=== PATIENT | male | born 1950 | race Caucasian/White ===

== ENCOUNTER 2018-12-23 00:57 | Emergency (ER) | payer MEDICARE, BC ==
[2018-12-23] MEDS ORDERED: IPRATROPIUM 0.5 MG/2.5 ML NEBU INHALATION STA (01:15)
[2018-12-23] MEDS ORDERED: methylPREDNISolone SOD SUCCI 125 MG/2 ML VIAL IV STA (01:15)
[2018-12-23] MEDS ORDERED: ALBUTEROL NEBULIZED 2.5 MG/3 ML INHALATION STA (01:15)
--- NOTE | 2018-12-23 01:19 | ED ---
SOB HPI - General Chief Complaint: Shortness of Breath Stated Complaint: REGINA Time Seen by Provider: 12/23/18 01:07 Source: patient, family Mode of arrival: ambulatory Limitations: no limitations - History of Present Illness Initial Comments: 68-year-old male patient presents to the emergency department today for evaluation of shortness of breath. Patient states that prior to going to sleep tonight he felt fine. States he played golf all day. Patient states that he woke up about an hour after falling asleep with shortness of breath. Patient states that he does generally have a cough. Denies any sputum production. Denies any fever or chills. Patient denies any chest pain or tightness. States he was having some mild chest pain earlier but that resolved. Denies any nausea or vomiting. Denies any abdominal pain. Patient does smoke cigarettes. Patient denies any recent rash, diarrhea, constipation, back pain, numbness, tingling, dizziness, weakness, hematuria, dysuria, urinary urgency, urinary frequency, headache, visual changes, or any other complaints. - Related Data Previous Rx's Medication Instructions Recorded Albuterol Sulfate [Proair Hfa] 1 - 2 puff INHALATION Q6HR PRN #1 12/23/18 inhaler Azithromycin [Zithromax Z-pack] 0 mg PO DIRECTED #6 tab 12/23/18 predniSONE 50 mg PO DAILY #5 tablet 12/23/18 Allergies Allergy/AdvReac Type Severity Reaction Status Date / Time No Known Allergies Allergy Verified 12/23/18 01:02 Review of Systems ROS Statement: Those systems with pertinent positive or pertinent negative responses have been documented in the HPI. ROS Other: All systems not noted in ROS Statement are negative. Past Medical History Past Medical History: Hypertension History of Any Multi-Drug Resistant Organisms: None Reported Past Surgical History: No Surgical Hx Reported Past Psychological History: No Psychological Hx Reported Smoking Status: Current every day smoker Past Alcohol Use History: None Reported, Occasional Past Drug Use History: None Reported General Exam Limitations: no limitations General appearance: alert, in no apparent distress, other (This is a well- developed, well-nourished adult male patient in mild respiratory distress. Vital signs upon presentation are temperature 97.8F, pulse 92, respirations 18, blood pressure 142/70, pulse ox 94% on room air.) Eye exam: Present: normal appearance, PERRL, EOMI. Absent: scleral icterus, conjunctival injection, periorbital swelling ENT exam: Present: normal exam, normal oropharynx, mucous membranes moist Respiratory exam: Present: decreased breath sounds (Generalized). Absent: normal lung sounds bilaterally, respiratory distress, wheezes, rales, rhonchi, stridor Cardiovascular Exam: Present: regular rate, normal rhythm, normal heart sounds. Absent: systolic murmur, diastolic murmur, rubs, gallop, clicks GI/Abdominal exam: Present: soft, normal bowel sounds. Absent: distended, tenderness, guarding, rebound, rigid Neurological exam: Present: alert, oriented X3, CN II-XII intact Psychiatric exam: Present: normal affect, normal mood Skin exam: Present: warm, dry, intact, normal color. Absent: rash Course Vital Signs 12/23/18 12/23/18 12/23/18 01:00 01:18 01:34 Temperature 97.8 F Pulse Rate 92 80 Respiratory 18 84 H 20 Rate Blood Pressure 142/70 O2 Sat by Pulse 94 L Oximetry 12/23/18 12/23/18 12/23/18 01:45 01:55 02:05 Temperature Pulse Rate 81 84 87 Respiratory 20 18 18 Rate Blood Pressure O2 Sat by Pulse Oximetry Medical Decision Making - Medical Decision Making 68-year-old male patient presented to the emergency department today for e valuation of shortness of breath. Patient denied chest pain. Lungs were diminished. Labs reviewed and were unremarkable. Troponin and d-dimer negative. Chest x-ray showed no acute cardiopulmonary process. Patient is a long-time smoker. Patient's symptoms consistent with COPD. He was given br eathing treatment and IV steroids or any emergency department. Upon reevaluation he does report improvement of symptoms. He is saturating 94-95% on room air. He will be discharged home with prescription for a Pro Air inhaler, steroids, and a azithromycin. He is instructed to follow-up with his primary care physician for recheck in 1-2 days. Return parameters were discussed in detail. He verbalizes understanding and agrees with this plan. - Lab Data Result diagrams: 12/23/18 01:15 12/23/18 01:15 Lab Results 12/23/18 12/23/18 12/23/18 Range/Units 01:15 01:15 01:15 WBC 5.6 (3.8-10.6) k/uL RBC 4.75 (4.30-5.90) m/uL Hgb 14.1 (13.0-17.5) gm/dL Hct 41.8 (39.0-53.0) % MCV 88.0 (80.0-100.0) fL MCH 29.7 (25.0-35.0) pg MCHC 33.7 (31.0-37.0) g/dL RDW 13.3 (11.5-15.5) % Plt Count 163 (150-450) k/uL Neutrophils % 53 % Lymphocytes % 35 % Monocytes % 6 % Eosinophils % 4 % Basophils % 0 % Neutrophils # 3.0 (1.3-7.7) k/uL Lymphocytes # 2.0 (1.0-4.8) k/uL Monocytes # 0.3 (0-1.0) k/uL Eosinophils # 0.2 (0-0.7) k/uL Basophils # 0.0 (0-0.2) k/uL PT 10.0 (9.0-12.0) sec INR 0.9 (<1.2) APTT 26.3 (22.0-30.0) sec D-Dimer 0.59 (<0.60) mg/L FEU Sodium 140 (137-145) mmol/L Potassium 3.6 (3.5-5.1) mmol/L Chloride 104 (98-107) mmol/L Carbon Dioxide 24 (22-30) mmol/L Anion Gap 12 mmol/L BUN 11 (9-20) mg/dL Creatinine 0.84 (0.66-1.25) mg/dL Est GFR (CKD-EPI)AfAm >90 (>60 ml/min/1.73 sqM) Est GFR (CKD-EPI)NonAf 89 (>60 ml/min/1.73 sqM) Glucose 106 H (74-99) mg/dL Calcium 9.4 (8.4-10.2) mg/dL Total Bilirubin 0.3 (0.2-1.3) mg/dL AST 22 (17-59) U/L ALT 15 L (21-72) U/L Alkaline Phosphatase 30 L (38-126) U/L Troponin I (0.000-0.034) ng/mL Total Protein 6.7 (6.3-8.2) g/dL Albumin 4.1 (3.5-5.0) g/dL 12/23/18 Range/Units 01:15 WBC (3.8-10.6) k/uL RBC (4.30-5.90) m/uL Hgb (13.0-17.5) gm/dL Hct (39.0-53.0) % MCV (80.0-100.0) fL MCH (25.0-35.0) pg MCHC (31.0-37.0) g/dL RDW (11.5-15.5) % Plt Count (150-450) k/uL Neutrophils % % Lymphocytes % % Monocytes % % Eosinophils % % Basophils % % Neutrophils # (1.3-7.7) k/uL Lymphocytes # (1.0-4.8) k/uL Monocytes # (0-1.0) k/uL Eosinophils # (0-0.7) k/uL Basophils # (0-0.2) k/uL PT (9.0-12.0) sec INR (<1.2) APTT (22.0-30.0) sec D-Dimer (<0.60) mg/L FEU Sodium (137-145) mmol/L Potassium (3.5-5.1) mmol/L Chloride (98-107) mmol/L Carbon Dioxide (22-30) mmol/L Anion Gap mmol/L BUN (9-20) mg/dL Creatinine (0.66-1.25) mg/dL Est GFR (CKD-EPI)AfAm (>60 ml/min/1.73 sqM) Est GFR (CKD-EPI)NonAf (>60 ml/min/1.73 sqM) Glucose (74-99) mg/dL Calcium (8.4-10.2) mg/dL Total Bilirubin (0.2-1.3) mg/dL AST (17-59) U/L ALT (21-72) U/L Alkaline Phosphatase (38-126) U/L Troponin I <0.012 (0.000-0.034) ng/mL Total Protein (6.3-8.2) g/dL Albumin (3.5-5.0) g/dL - EKG Data -: EKG Interpreted by Me EKG Comments: EKG obtained at 0107 shows normal sinus rhythm with a ventricular rate of 83, OH interval 174, QRS duration 84, QT 346, QTC 406. No evidence of ST elevation or depression. - Radiology Data Radiology results: report reviewed, image reviewed Two-view x-ray of the chest is obtained. Report was reviewed in its entirety. Flattening of the diaphragms does suggest chronic obstructive pulmonary disease. Impression by Dr. Marks shows no acute cardio pulmonary disease. Disposition Clinical Impression: COPD (chronic obstructive pulmonary disease) Disposition: HOME SELF-CARE Condition: Good Instructions (If sedation given, give patient instructions): COPD (Chronic Obstructive Pulmonary Disease) (ED) Additional Instructions: Complete medications as directed. Follow up with your primary care physician for recheck as soon as possible. Return to the emergency department immediately for any new, worsening, or concerning symptoms. Prescriptions: predniSONE 50 mg PO DAILY #5 tablet Albuterol Sulfate [Proair Hfa] 1 - 2 puff INHALATION Q6HR PRN #1 inhaler PRN Reason: Shortness Of Breath Azithromycin [Zithromax Z-pack] 0 mg PO DIRECTED #6 tab Is patient prescribed a controlled substance at d/c from ED?: No Referrals: Olu Au MD [Primary Care Provider] - 1-2 days Time of Disposition: 03:03
[2018-12-23 01:29] LABS: Basophils % (A) 0 %; Eosinophils # (A) 0.2 k/uL (0-0.7); Eosinophils % (A) 4 %; HCT 41.8 % (39.0-53.0); HGB 14.1 gm/dL (13.0-17.5); Lymphocytes % (A) 35 %; MCH 29.7 pg (25.0-35.0); MCHC 33.7 g/dL (31.0-37.0); Mean Platelet Volume 6.6; Monocytes # (A) 0.3 k/uL (0-1.0); Monocytes % (A) 6 %; Neutrophils % (A) 53 %; Platelet Count 163 k/uL (150-450); RBC 4.75 m/uL (4.30-5.90); RDW 13.3 % (11.5-15.5); WBC 5.6 k/uL (3.8-10.6)
[2018-12-23 01:39] LABS: ALT 15 U/L (21-72); AST 22 U/L (17-59); African American GFR (CKD) >90 (>60 ml/min/1.73 sqM); Albumin 4.1 g/dL (3.5-5.0); Alkaline Phosphatase 30 U/L (38-126); Anion Gap 12 mmol/L; Blood Urea Nitrogen 11 mg/dL (9-20); Calcium 9.4 mg/dL (8.4-10.2); Carbon Dioxide 24 mmol/L (22-30); Chloride 104 mmol/L (98-107); Glucose 106 mg/dL (74-99); Potassium 3.6 mmol/L (3.5-5.1); Sodium 140 mmol/L (137-145); Total Bilirubin 0.3 mg/dL (0.2-1.3); Total Protein 6.7 g/dL (6.3-8.2)
[2018-12-23 01:52] LABS: D-Dimer 0.59 mg/L FEU (<0.60); INR 0.9 (<1.2); Partial Thromboplastin Time 26.3 sec (22.0-30.0)
[2018-12-23 02:05] VITALS: RESP 18
--- NOTE | 2018-12-23 02:05 | XR ---
INDICATION: Difficulty breathing COMPARISON: None FINDINGS: PA and lateral views of the chest are obtained. There is no airspace consolidation, pleural effusion, or pneumothorax. Flattening of the diaphragm suggests chronic obstructive pulmonary disease. The cardiomediastinal select and pulmonary vascularity are normal. Regional skeleton appears intact. IMPRESSION: No acute cardiopulmonary disease.
[2018-12-23 02:06] VITALS: PULSE 87
[2018-12-23] MEDS ORDERED: AZITHROMYCIN 500 MG TAB PO STA (03:01)
[2018-12-23 03:19] VITALS: BP 131/64; TEMP 98
== END 2018-12-23 03:28 | disposition home or self-care (01) ==
LOC: EC 00:57
DX: J44.9 Chronic obstructive pulmonary disease, unspecified (principal); F17.210 Nicotine dependence, cigarettes, uncomplicated
CPT/HCPCS: 36415; 94644; 93005; 85379; 80053; 84484; 85025; 85610; 85730; 71046; 99285; 96374; J2930

== ENCOUNTER → 2020-01-24 | Day surgery (SDC) | payer MEDICARE, BC ==
[2020-01-21 14:59] VITALS: BMI 25.2
[~2020-01-24] MED LIST: GLUCAGON 1 MG/ML VIAL ONE; LACTATED RINGERS 1,000 ML IV ONE; LACTATED RINGERS 1,000 ML IV SCH; LIDOCAINE 1% (10MG/ML) FOR IV START INTRADERMA PRN; PROPOFOL 10 MG/ML 20 ML VIAL IV ONE
[2020-01-24 08:27] VITALS: TEMP 97
--- NOTE | 2020-01-24 09:03 | P.GSHP ---
History of Present Illness H&P Date: 01/24/20 Chief Complaint: Screening colonoscopy Cyst 70-year-old male referred from Dr. Au. Patient presents today for screening colonoscopy. Past Medical History Past Medical History: GERD/Reflux, Hypertension Additional Past Medical History / Comment(s): Having pain in rectum, hx hemorrhoids. Gout. History of Any Multi-Drug Resistant Organisms: None Reported Past Surgical History: Heart Catheterization Additional Past Surgical History / Comment(s): Hemorrhoid laser. Colonoscopy. Past Anesthesia/Blood Transfusion Reactions: No Reported Reaction Smoking Status: Current every day smoker - Past Family History Mother Family Medical History: No Reported History Medications and Allergies Home Medications Medication Instructions Recorded Confirmed Type Albuterol Sulfate [Proair Hfa] 1 - 2 puff INHALATION Q6HR PRN #1 12/23/18 01/21/20 Rx inhaler Acetaminophen [Tylenol] 325 - 650 mg PO DIRECTED PRN 01/21/20 01/21/20 History Enalapril [Vasotec] 20 mg PO BID 01/21/20 01/21/20 History Ibuprofen [Motrin Ib] 400 mg PO Q8H PRN 01/21/20 01/21/20 History allopurinoL [Zyloprim] 100 mg PO DAILY 01/21/20 01/21/20 History Allergies Allergy/AdvReac Type Severity Reaction Status Date / Time cephalexin [From Keflex] AdvReac dizzyness Verified 01/21/20 14:38 Surgical - Exam Vital Signs Temp Pulse Resp BP Pulse Ox 97.0 F L 75 18 170/73 97 01/24/20 08:25 01/24/20 08:25 01/24/20 08:25 01/24/20 08:25 01/24/20 08:25 - General well developed, well nourished, no distress - Eyes PERRL - ENT normal pinna - Neck no masses - Respiratory normal expansion - Cardiovascular Rhythm: regular - Abdomen Abdomen: soft, non tender Assessment and Plan Assessment: We'll perform screening colonoscopy.
--- NOTE | 2020-01-24 09:21 | P.OP ---
Date of Procedure: 01/24/20 Preoperative Diagnosis: Screening colonoscopy Postoperative Diagnosis: Anal stricture Severe Diverticulosis I Procedure(s) Performed: Colonoscopy Anesthesia: MAC Surgeon: Chilo Escobar Pathology: other (Anus) Condition: stable Disposition: PACU Description of Procedure: Patient's placed on the endoscopy table in the lateral position. He received IV sedation. Digital rectal exam was performed. There was scarring of the patient's anus. There appeared to be evidence of inflammatory changes of the perianal skin. A biopsies performed. The flexible colonoscope was then placed patient anus and passed with colon. The patient severe diverticulosis. The scope could not be passed beyond the sigmoid colon. Scope was withdrawn in order to prevent a perforation of the colon. There is significant diverticular changes of the sigmoid colon. Scope was then brought back the rectum and this appeared normal. Scope was withdrawn for patient. Patient was scheduled for computed tomography scan of the abdomen pelvis
[2020-01-24 10:26] VITALS: BP 124/76; PULSE 74; RESP 16
[2020-01-24 10:29] LABS: African American GFR (CKD) >90 (>60 ml/min/1.73 sqM); Blood Urea Nitrogen 10 mg/dL (9-20); Non-African American GFR(CKD) >90 (>60 ml/min/1.73 sqM)
--- NOTE | 2020-01-24 15:28 | CT ---
EXAMINATION TYPE: CT abdomen pelvis w con DATE OF EXAM: 01/24/2020 COMPARISON: None HISTORY: Diverticulitis. CT DLP: 542.3 mGycm Automated exposure control for dose reduction was used. TECHNIQUE: Helical acquisition of images was performed from the lung bases through the pelvis. CONTRAST: Performed with Oral Contrast and with IV Contrast, patient injected with 100 mL of Isovue M300. FINDINGS: LUNG BASES: No pericardial or pleural effusion. Calcified coronary artery disease. LIVER: Wedge-shaped hypodensity near the falciform ligament likely represents fat. BILIARY SYSTEM: Normal. PANCREAS: Normal. SPLEEN: Normal. ADRENALS: Normal. KIDNEYS: Normal. Renal artery vascular calcifications. BOWEL: There is circumferential thickening of the visualized distal esophagus. No evidence of bowel obstruction. There is diffuse wall thickening of the distal sigmoid, in the region of sigmoid diverti culosis. No acute diverticulitis. The appendix is within a right inguinal hernia and otherwise unrema rkable. PERITONEUM: No free air is visualized. No free fluid. Fat-containing small left inguinal hernias. Sm all right inguinal Amyand hernia contains the nonobstructed appendix. ADENOPATHY: No lymphadenopathy. PELVIS: Normal. VASCULATURE: Infrarenal abdominal aortic ectasia measuring up to 2.5 cm. Calcified and noncalcified marked atherosclerotic disease. MUSCULOSKELETAL: Degenerative changes of the spine. IMPRESSION: 1. Circumferential thickening of the distal sigmoid colon. Findings may represent colitis. There is d iverticulosis with no acute diverticulitis of the sigmoid colon. 2. Circumferential thickening of the visualized distal esophagus. Findings may represent neoplastic v ersus inflammatory etiology. Correlation with direct visualization is recommended. 3. Right Amyand inguinal hernia containing nonobstructed vermiform appendix.
== END | disposition home or self-care (01) ==
LOC: ORWHC2ENDO 08:03
PROVIDERS: ATTEND Surgery
DX: Z12.11 Encounter for screening for malignant neoplasm of colon (principal); K57.30 Diverticulosis of large intestine without perforation or abscess without bleeding; K62.4 Stenosis of anus and rectum; I10 Essential (primary) hypertension; J45.909 Unspecified asthma, uncomplicated; Z88.1 Allergy status to other antibiotic agents; Z79.1 Long term (current) use of non-steroidal anti-inflammatories (NSAID); Z79.899 Other long term (current) drug therapy; M10.9 Gout, unspecified; F17.200 Nicotine dependence, unspecified, uncomplicated; K21.9 Gastro-esophageal reflux disease without esophagitis; Z87.19 Personal history of other diseases of the digestive system; Z98.890 Other specified postprocedural states
CPT/HCPCS: 88305; 82565; 84520; 74177; 45331; J1610; J2704; Q9967 ×2

== ENCOUNTER → 2020-02-03 | Outpatient (CLI) | payer MEDICARE, BC ==
[2020-02-03 13:58] LABS: HCT 44.8 % (39.0-53.0); HGB 14.9 gm/dL (13.0-17.5); MCH 31.4 pg (25.0-35.0); MCHC 33.2 g/dL (31.0-37.0); MCV 94.7 fL (80.0-100.0); Mean Platelet Volume 7.3; Platelet Count 218 k/uL (150-450); RBC 4.73 m/uL (4.30-5.90); RDW 13.2 % (11.5-15.5)
[2020-02-03 14:08] LABS: Potassium 4.3 mmol/L (3.5-5.1)
== END | disposition home or self-care (01) ==
LOC: LABPAT 11:51
PROVIDERS: ATTEND Surgery
DX: Z01.818 Encounter for other preprocedural examination (principal); K57.32 Diverticulitis of large intestine without perforation or abscess without bleeding
CPT/HCPCS: 36415; 80051; 85027; 86850; 86900; 86901; 93005

== ENCOUNTER 2020-02-12 09:09 | Inpatient (IN) | payer MEDICARE, BC ==
[2020-02-10 12:10] VITALS: BMI 23.4
[~2020-02-12 09:09] MED LIST changes: +ACETAMINOPHEN TAB 500 MG TAB PO ONE; +DEXAMETHASONE SOD PHOSPHATE 10 MG/ML 1 ML VIAL IV ONE; -GLUCAGON 1 MG/ML VIAL ONE; +HEPARIN SODIUM,PORCINE 5,000 UNIT/ML 1 ML VIAL SQ ONE; -LACTATED RINGERS 1,000 ML IV ONE; -LACTATED RINGERS 1,000 ML IV SCH; -LIDOCAINE 1% (10MG/ML) FOR IV START INTRADERMA PRN; +MIDAZOLAM 2 MG/2 ML VIAL IV PRN; +ONDANSETRON 4 MG/2 ML VIAL IVP ONE; -PROPOFOL 10 MG/ML 20 ML VIAL IV ONE; +fentaNYL (PF) 50 MCG/ML 2 ML AMP IV PRN; +fentaNYL (PF) 50 MCG/ML 2 ML AMP IVP PRN; +metroNIDAZOLE-NS PMX 500 MG in SALINE 1 100ML.BAG IVPB ONE
[2020-02-12] MEDS: LACTATED RINGERS 1,000 ML IV SCH ×2 (09:49→18:00)
[2020-02-12] MEDS ORDERED: MIDAZOLAM 2 MG/2 ML VIAL IVP ONE (10:39)
[2020-02-12] MEDS ORDERED: ALVIMOPAN 12 MG CAPSULE PO ONE (10:59)
--- NOTE | 2020-02-12 11:00 | P.GSHP ---
History of Present Illness H&P Date: 02/12/20 Chief Complaint: Diverticulitis This a 70-year-old male who presents today for low anterior section. Patient's had chronic problems with diverticulitis. His recent CAT scan shows thickening of the sigmoid colon and evidence of diverticulosis. Patient is aware the risk of possible colostomy wound infection. Past Medical History Past Medical History: COPD, GERD/Reflux, Hypertension Additional Past Medical History / Comment(s): Having pain in rectum, hx hemorrhoids. Gout. Recent colonoscopy, found diverticulitis, anal stricture. History of Any Multi-Drug Resistant Organisms: None Reported Past Surgical History: Heart Catheterization Additional Past Surgical History / Comment(s): Hemorrhoid laser. Colonoscopies, last 01/21/20. Past Anesthesia/Blood Transfusion Reactions: No Reported Reaction Smoking Status: Current every day smoker - Past Family History Mother Family Medical History: No Reported History Medications and Allergies Home Medications Medication Instructions Recorded Confirmed Type Albuterol Sulfate [Proair Hfa] 1 - 2 puff INHALATION Q6HR PRN #1 12/23/18 02/10/20 Rx inhaler Acetaminophen [Tylenol] 325 - 650 mg PO DIRECTED PRN 01/21/20 02/10/20 History Enalapril [Vasotec] 20 mg PO BID 01/21/20 02/10/20 History Ibuprofen [Motrin Ib] 400 mg PO Q8H PRN 01/21/20 02/10/20 History allopurinoL [Zyloprim] 100 mg PO DAILY 01/21/20 02/10/20 History Acetaminophen/Diphenhydramine 1 tab PO HS PRN 02/10/20 02/10/20 History [Tylenol PM 500-25mg] Allergies Allergy/AdvReac Type Severity Reaction Status Date / Time cephalexin [From Keflex] AdvReac dizzyness Verified 02/12/20 09:53 Surgical - Exam Vital Signs Temp Pulse Resp BP Pulse Ox 96.9 F L 76 16 143/68 95 02/12/20 09:44 02/12/20 09:44 02/12/20 09:44 02/12/20 09:44 02/12/20 09:44 - General well developed, well nourished, no distress - Eyes PERRL - ENT normal pinna - Neck no masses - Respiratory normal expansion - Cardiovascular Rhythm: regular - Abdomen Mild left lower quadrant tenderness Abdomen: soft Assessment and Plan Assessment: History of chronic diverticulitis. Patient will undergo low anterior resection
[2020-02-12] MEDS ORDERED: PROPOFOL 10 MG/ML 20 ML VIAL IV ONE (11:18)
[2020-02-12] MEDS ORDERED: fentaNYL (PF) 50 MCG/ML 2 ML AMP ONE (11:18)
[2020-02-12] MEDS ORDERED: SUCCINYLCHOLINE CHLORIDE 100 MG/5 ML SYR IV ONE (11:18)
[2020-02-12] MEDS ORDERED: NEOSTIGMINE 1 MG/ML 10 ML VIAL ONE (11:18)
[2020-02-12] MEDS ORDERED: HYDROmorphone (PF) 1 MG/ML ONE (11:18)
[2020-02-12] MEDS ORDERED: ROCURONIUM 10 MG/ML (5 ML VIAL) IV ONE (11:18)
[2020-02-12] MEDS ORDERED: MIDAZOLAM 2 MG/2 ML VIAL ONE (11:18)
[2020-02-12] MEDS ORDERED: LIDOCAINE 1% INJ 10MG/ML (20 ML MDV) ONE (11:18)
[2020-02-12] MEDS ORDERED: GLYCOPYRROLATE 0.2 MG/ML 2 ML VIAL ONE (11:18)
[2020-02-12] MEDS ORDERED: NALOXONE 0.4 MG/ML 1 ML VIAL IV PRN (11:59)
[2020-02-12] MEDS ORDERED: LACTATED RINGERS 1,000 ML IV ONE ×4 (12:04→14:05)
--- NOTE | 2020-02-12 12:44 | P.OP ---
Date of Procedure: 02/12/20 Preoperative Diagnosis: Diverticulitis Postoperative Diagnosis: Diverticulitis Procedure(s) Performed: Low anterior section Incidental appendectomy Anesthesia: TRISHA Surgeon: Chilo Escobar Estimated Blood Loss (ml): 50 Pathology: other (Sigmoid colon, appendix) Condition: stable Disposition: PACU Operative Findings: The patient's placed on the operating table in the supine position. He received general anesthesia. His then placed in dorsal lithotomy position. His abdomen was prepped and draped in the usual sterile fashion. A Fountain catheter complaints. The abdomen was entered through a low midline incision. The patient a previous ventral hernia repair. There were adhesions to mesh. These were lysed using left cautery. Once the omentum was freed the Bookwalter retractors placed a wound. The sigmoid colon appeared obviously inflamed. The adhesions to the sigmoid colon and left colon were then lysed. In the white line of Toldt was divided using left cautery. At this point an enterotomy is made in the proximal sigmoid colon and then the EEA anvil for the 25 mm stapler is placed in the colon. The enterotomy was closed. This was closed using 3-0 GI silk. And then using the OLI stapler the colon was transected. The anvil was then driven through the staple line proximally. Using Enseal device the mesentery the bowel was divided. The mesorectum was divided. And then the rectum was then transected with the contour stapler. The office manager executive assistant then placed the EEA stapler patient's anus and then the stapler was appropriately position and the spike was driven through the anterior rectal wall. The handle was connected to the stapler. The stapler is then closed and fired. The stapler was then withdrawn. 2 intact tissue doughnut rings were removed from the stapler. Using a hydro-banking center manager. The proximal colon was then occluded just proximal to the staple anastomosis. And then using a rigid sigmoidoscope the rectum was insufflated with air. There is no evidence of any extravasation of air when performed a leak test under water. This point the abdomen was irrigated. No bleeding was seen. The fascia was then closed with looped #1 PDS suture. Skin was closed felecia. Patient tolerated the procedure well was sent to recovery room stable condition.
[2020-02-12] MEDS ORDERED: ONDANSETRON 4 MG/2 ML VIAL IVP PRN (12:45)
[2020-02-12] MEDS ORDERED: HYDROmorphone 1 MG/ML 1 ML SYRINGE IVP PRN (12:45)
[2020-02-12] MEDS ORDERED: BENZOCAINE/MENTHOL LOZENG 1 EACH LOZENGE MUCOUS MEM PRN (12:45)
[2020-02-12] MEDS ORDERED: METOCLOPRAMIDE 5 MG/ML 2 ML VIAL IVP PRN (12:45)
[2020-02-12] MEDS: HYDROmorphone 0.5 MG/0.5 ML SYRINGE IVP PRN ×4 (13:05→13:47)
[2020-02-12] MEDS: ROPIVACAINE 250 MG, HYDROMORPHONE (PF) 5 MG in SODIUM CHLORIDE 0.9% 200 ML EPIDURAL PRN ×3 (13:38→14:14)
[2020-02-12] MEDS ORDERED: fentaNYL (PF) 50 MCG/ML 2 ML AMP IVP ONE (13:54)
--- NOTE | 2020-02-12 14:12 | P.ANPRN ---
Procedure Note - Anesthesia - Epidural/Spinal Epidural Continuous Time Out Performed: Yes Date of Procedure: 02/12/20 Procedure Start Time: 10:38 Procedure Stop Time: 10:47 Location of Patient: PreOp Indication: Acute Post-Operative Pain, Requested by Surgeon Sedation Type: Sedate with meaningful contact maintained Preparation: Sterile Dressing Position: Supine Catheter: Indwelling Needle Guage: 18 Injectate: Test Dose Lidocaine1.5% w/1:200,000 epi Blood Aspirated: No Pain Paresthesia on Injection Noted: No Events: Uneventful and Well Tolerated
[2020-02-12] MEDS: D5-0.45% NACL WITH KCL 20MEQ/L 1,000 ML IV SCH ×2 (17:52→21:01)
[2020-02-12] MEDS: HEPARIN SODIUM,PORCINE 5,000 UNIT/ML 1 ML VIAL SQ SCH (18:00)
[2020-02-12] MEDS: FAMOTIDINE 20 MG/2 ML VIAL IV SCH (20:59)
[2020-02-12] MEDS: ALVIMOPAN 12 MG CAPSULE PO SCH (20:59)
[2020-02-13] MEDS: HEPARIN SODIUM,PORCINE 5,000 UNIT/ML 1 ML VIAL SQ SCH ×3 (00:08→16:17)
[2020-02-13] MEDS: D5-0.45% NACL WITH KCL 20MEQ/L 1,000 ML IV SCH ×3 (05:40→20:50)
[2020-02-13 06:39] LABS: Basophils % (A) 0 %; Eosinophils % (A) 0 %; HCT 42.4 % (39.0-53.0); HGB 13.8 gm/dL (13.0-17.5); Lymphocytes # (A) 1.1 k/uL (1.0-4.8); Lymphocytes % (A) 8 %; MCHC 32.6 g/dL (31.0-37.0); MCV 94.9 fL (80.0-100.0); Monocytes # (A) 0.8 k/uL (0-1.0); Monocytes % (A) 6 %; Neutrophils # (A) 11.1 k/uL (1.3-7.7); Neutrophils % (A) 85 %; Platelet Count 209 k/uL (150-450); RBC 4.47 m/uL (4.30-5.90); RDW 13.2 % (11.5-15.5); WBC 13.1 k/uL (3.8-10.6)
[2020-02-13] MEDS: ALBUTEROL NEBULIZED 2.5 MG/3 ML INHALATION PRN ×2 (07:15→22:39)
--- NOTE | 2020-02-13 07:45 | P.PN ---
Progress Note - Text Progress Note Date: 02/13/20 Patient is POD#1 s/p LAR. Pain 3/10. Denies headache or weakness. Epidural @ 7 ml/hr. Epidural site clean and dry. Continue current regimen.
--- NOTE | 2020-02-13 07:52 | P.CONS ---
History of Present Illness - Reason for Consult Consult date: 02/13/20 Medical management - Chief Complaint Chronic diverticular disease - History of Present Illness This is a consultation on a 70-year-old white male with history of hypertension and COPD who has had chronic diverticular disease and is now seen postop day #1 for lunch or resection. The patient is having postoperative pain. No other complaints. The patient states no significant nausea or vomiting. We will restart home medications today. Pain control per surgery. Review of Systems Constitutional: Denies chills, Denies fever Eyes: denies blurred vision, denies pain Ears, nose, mouth and throat: Denies headache, Denies sore throat Cardiovascular: Denies chest pain, Denies shortness of breath Respiratory: Denies cough Gastrointestinal: Reports abdominal pain, Denies diarrhea, Denies nausea, Denies vomiting Musculoskeletal: Denies myalgias Past Medical History Past Medical History: COPD, GERD/Reflux, Hypertension Additional Past Medical History / Comment(s): Having pain in rectum, hx hemorrhoids. Gout. Recent colonoscopy, found diverticulitis, anal stricture. History of Any Multi-Drug Resistant Organisms: None Reported Past Surgical History: Heart Catheterization Additional Past Surgical History / Comment(s): Hemorrhoid laser. Colonoscopies, last 01/21/20. Past Anesthesia/Blood Transfusion Reactions: No Reported Reaction Past Psychological History: No Psychological Hx Reported Smoking Status: Current every day smoker Past Alcohol Use History: Occasional Additional Past Alcohol Use History / Comment(s): Smoking since age 15, 1 ppd or so. Drinks 3-4 beers per day est. Past Drug Use History: None Reported - Past Family History Mother Family Medical History: No Reported History Medications and Allergies Home Medications Medication Instructions Recorded Confirmed Type Albuterol Sulfate [Proair Hfa] 1 - 2 puff INHALATION Q6HR PRN #1 12/23/18 02/10/20 Rx inhaler Acetaminophen [Tylenol] 325 - 650 mg PO DIRECTED PRN 01/21/20 02/10/20 History Enalapril [Vasotec] 20 mg PO BID 01/21/20 02/10/20 History Ibuprofen [Motrin Ib] 400 mg PO Q8H PRN 01/21/20 02/10/20 History allopurinoL [Zyloprim] 100 mg PO DAILY 09/01/20 09/21/20 History Acetaminophen/Diphenhydramine 1 tab PO HS PRN 02/10/20 02/10/20 History [Tylenol PM 500-25mg] Allergies Allergy/AdvReac Type Severity Reaction Status Date / Time cephalexin [From Keflex] AdvReac dizzyness Verified 02/12/20 09:53 Physical Exam Vitals: Vital Signs Temp Pulse Pulse Resp BP Pulse Ox 02/13/20 07:29 84 02/13/20 07:26 97.5 F L 78 12 132/72 99 02/13/20 07:15 80 02/13/20 00:00 18 02/12/20 23:56 98.8 F 85 16 96/61 95 02/12/20 19:50 18 02/12/20 19:16 98.9 F 77 18 121/75 98 02/12/20 17:30 65 104/71 02/12/20 17:00 66 115/63 02/12/20 16:30 69 104/65 02/12/20 16:26 98 02/12/20 16:00 55 L 124/67 02/12/20 15:29 98.1 F 62 18 101/56 91 L 02/12/20 15:00 73 16 92/56 99 02/12/20 14:30 62 16 88/52 97 02/12/20 14:12 59 L 16 104/50 98 02/12/20 13:57 58 L 16 105/51 98 02/12/20 13:42 58 L 16 129/82 100 02/12/20 13:28 56 L 16 110/50 100 02/12/20 13:13 57 L 16 112/52 100 02/12/20 12:58 61 16 143/57 100 02/12/20 12:43 97 F L 68 16 176/81 99 02/12/20 10:57 87 16 109/62 96 02/12/20 09:44 96.9 F L 76 16 143/68 95 Intake and Output 02/12/20 02/13/20 02/13/20 22:59 06:59 14:59 Intake Total 550 1000 Output Total 600 450 Balance -50 550 Intake: IV 300 Intake, IV Titration 250 1000 Amount D5-0.45% NaCl with KCl 250 1000 20Meq/l 1,000 ml @ 125 mls/hr IV .Q8H [facility] Rx#: [id number] Output: Urine 600 450 Uretheral (Fountain) 100 Other: Voiding Method Indwelling Catheter Indwelling Catheter # Voids 1 Weight 70 kg - Constitutional General appearance: no acute distress - EENT Eyes: EOMI - Neck Neck: no lymphadenopathy - Respiratory Respiratory: bilateral: CTA - Cardiovascular Rhythm: regular Heart sounds: normal: S1, S2 Abnormal Heart Sounds: no S3 Gallop - Gastrointestinal General gastrointestinal: absent bowel sounds, soft - Integumentary Integumentary: no cellulitis Results CBC & Chem 7: 02/13/20 06:18 Labs: Abnormal Lab Results - Last 24 Hours (Table) 02/13/20 Range/Units 06:18 WBC 13.1 H (3.8-10.6) k/uL Neutrophils # 11.1 H (1.3-7.7) k/uL Assessment and Plan (1) Diverticulitis large intestine w/o perforation or abscess w/o bleeding Current Visit: Yes Status: Acute Code(s): K57.32 - DVTRCLI OF LG INT W/O PERFORATION OR ABSCESS W/O BLEEDING SNOMED Code(s): 9036514 (2) HTN (hypertension) Current Visit: Yes Status: Acute Code(s): I10 - ESSENTIAL (PRIMARY) HYPERTENSION SNOMED Code(s): 65546425 (3) COPD (chronic obstructive pulmonary disease) Current Visit: Yes Status: Acute Code(s): J44.9 - CHRONIC OBSTRUCTIVE PULM ONARY DISEASE, UNSPECIFIED SNOMED Code(s): 87112263 Plan: Continue standard postop treatment with pulmonary toilet. DVT prophylaxis and GI prophylaxis as necessary. Check CBC and CMP in a.m. Reconcile home medications. Appreciate the consultation.
[2020-02-13 09:05] LABS: African American GFR (CKD) 117.2 (60.0-200.0); Anion Gap 5.7 mmol/L (4.00-12.00); Calcium 8.9 mg/dL (8.7-10.3); Carbon Dioxide 28.3 mmol/L (21.6-31.8); Non-African American GFR(CKD) 101.2 (60.0-200.0); Potassium 4.6 mmol/L (3.5-5.5)
[2020-02-13] MEDS: ALVIMOPAN 12 MG CAPSULE PO SCH ×2 (09:14→20:50)
[2020-02-13] MEDS: allopurinoL 100 MG TAB PO SCH (09:14)
[2020-02-13] MEDS: lisinopriL 20 MG TAB PO SCH ×2 (09:14→20:50)
[2020-02-13] MEDS: FAMOTIDINE 20 MG/2 ML VIAL IV SCH ×2 (09:25→20:50)
--- NOTE | 2020-02-13 14:12 | P.PN ---
Subjective Progress Note Date: 02/13/20 CHIEF COMPLAINT: Diverticulitis HISTORY OF PRESENT ILLNESS: Patient with diverticulitis status post lower anterior resection and incidental appendectomy. Patient is reporting some pain. Does have epidural. Denies passing any gas denies any nausea or vomiting. Patient's dressing was saturated with blood and changed. He is asking for something to drink. White count 13.1. He is afebrile. PHYSICAL EXAM: VITAL SIGNS: Reviewed. GENERAL: Well-developed in no acute distress. HEENT: No sclera icterus. Extraocular movements grossly intact. Moist buccal mucosa. Head is atraumatic, normocephalic. ABDOMEN: Soft. Mildly distended. Incision site clean dry and intact. Dressing was saturated with blood NEUROLOGIC: Alert and oriented. Cranial nerves II through XII grossly intact. ASSESSMENT: 1. Diverticulitis status post lower anterior resection and incidental appendectomy PLAN: -Start clear liquid diet -Continue epidural -Encouraged patient to increase activity -Encouraged patient to use incentive spirometer Physician Egg Candler note has been reviewed by physician. Signing provider agrees with the documented findings, assessment, and plan of care. Objective - Vital Signs Vital signs: Vital Signs Temp 97.5 F L 02/13/20 07:26 Pulse 78 02/13/20 08:00 Resp 12 02/13/20 08:00 BP 132/72 02/13/20 07:26 Pulse Ox 99 02/13/20 07:26 Intake & Output 02/12/20 02/13/20 02/13/20 18:59 06:59 18:59 Intake Total 2475 1250 Output Total 325 875 Balance 2150 375 Weight 70 kg Intake: IV 2475 Intake, IV Titration 1250 Amount D5-0.45% NaCl with KCl 1250 20Meq/l 1,000 ml @ 125 mls/hr IV .Q8H [facility] Rx#: [id number] Output: Urine 275 875 Uretheral (Fountain) 100 Estimated Blood Loss 50 Other: Voiding Method Indwelling Catheter Indwelling Catheter # Voids 1 1 - Labs CBC & Chem 7: 02/13/20 06:18 02/13/20 06:18 Labs: Abnormal Lab Results - Last 24 Hours (Table) 02/13/20 Range/Units 06:18 WBC 13.1 H (3.8-10.6) k/uL Neutrophils # 11.1 H (1.3-7.7) k/uL
[2020-02-13] MEDS: ROPIVACAINE 250 MG, HYDROMORPHONE (PF) 5 MG in SODIUM CHLORIDE 0.9% 200 ML EPIDURAL PRN (16:12)
[2020-02-13] MEDS: LACTATED RINGERS 1,000 ML IV SCH (20:49)
[2020-02-14] MEDS: HEPARIN SODIUM,PORCINE 5,000 UNIT/ML 1 ML VIAL SQ SCH ×3 (00:06→16:18)
[2020-02-14] MEDS: D5-0.45% NACL WITH KCL 20MEQ/L 1,000 ML IV SCH ×3 (06:06→20:33)
[2020-02-14 07:30] LABS: HCT 42.8 % (39.0-53.0); HGB 13.6 gm/dL (13.0-17.5); MCH 30.2 pg (25.0-35.0); MCHC 31.9 g/dL (31.0-37.0); MCV 94.5 fL (80.0-100.0); Mean Platelet Volume 7.2; Platelet Count 195 k/uL (150-450); RBC 4.52 m/uL (4.30-5.90); RDW 12.6 % (11.5-15.5); WBC 10.6 k/uL (3.8-10.6)
[2020-02-14] MEDS: allopurinoL 100 MG TAB PO SCH (08:07)
[2020-02-14] MEDS: FAMOTIDINE 20 MG/2 ML VIAL IV SCH ×2 (08:07→20:33)
[2020-02-14] MEDS: ALVIMOPAN 12 MG CAPSULE PO SCH ×2 (08:07→20:32)
[2020-02-14] MEDS: lisinopriL 20 MG TAB PO SCH ×2 (08:07→20:32)
--- NOTE | 2020-02-14 09:04 | P.PN ---
Progress Note - Text Progress Note Date: 02/14/20 Patient without complaints. Tolerating clears. Denies headache or weakness. Pain /10. Epidural at 7 ml/hr. Epidural site clean and dry. POD#2 s/p LAR. Increase epidural rate to 10 ml/hr. Continue epidural until tomorrow. Breakthrough pain medication.
--- NOTE | 2020-02-14 10:32 | P.PN ---
Subjective Progress Note Date: 02/14/20 Principal diagnosis: POD #2 for Low Anterior resection The patient is POD #2 for Low anterior resection for diverticular disease. Poor sleep is noted. Some anxiety is stated. Objective - Vital Signs Vital signs: Vital Signs Temp 98.5 F 02/14/20 07:00 Pulse 64 02/14/20 07:00 Resp 16 02/14/20 07:00 BP 116/60 02/14/20 07:00 Pulse Ox 99 02/14/20 08:24 Intake & Output 02/13/20 02/14/20 02/14/20 18:59 06:59 18:59 Intake Total 150 2550 Output Total 500 2150 Balance -350 400 Intake: Intake, IV Titration 150 2050 Amount D5-0.45% NaCl with KCl 1990 20Meq/l 1,000 ml @ 125 mls/hr IV .Q8H [facility] Rx#: [id number] Lactated Ringers 1,000 ml 60 @ 20 mls/hr IV .Q24H [facility] Rx#:[id number] Ropivacaine 250 mg 150 Hydromorphone (Pf) 5 mg In Sodium Chloride 0.9% 200 ml @ Per Protocol EPIDURAL .Q0M PRN Rx#: [id number] Oral 500 Output: Urine 500 2150 Other: Voiding Method Indwelling Catheter Indwelling Catheter Indwelling Catheter # Voids 1 - Constitutional General appearance: Present: average body habitus - EENT Eyes: Absent: abnormal pupil - Neck Neck: Absent: lymphadenopathy - Respiratory Respiratory: bilateral: CTA - Cardiovascular Rhythm: regular Heart sounds: normal: S1, S2 Abnormal Heart Sounds: Absent: S3 Gallop - Gastrointestinal General gastrointestinal: Present: soft, tenderness - Integumentary Integumentary: Absent: cellulitis - Labs CBC & Chem 7: 02/14/20 07:00 02/13/20 06:18 Assessment and Plan (1) Diverticulitis large intestine w/o perforation or abscess w/o bleeding Current Visit: Yes Status: Acute Code(s): K57.32 - DVTRCLI OF LG INT W/O PERFORATION OR ABSCESS W/O BLEEDING SNOMED Code(s): 1489471 (2) HTN (hypertension) Current Visit: Yes Status: Acute Code(s): I10 - ESSENTIAL (PRIMARY) HYPERTENSION SNOMED Code(s): 58919445 (3) COPD (chronic obstructive pulmonary disease) Current Visit: Yes Status: Acute Code(s): J44.9 - CHRONIC OBSTRUCTIVE PULMONARY DISEASE, UNSPECIFIED SNOMED Code(s): 44639780 Plan: Continue standard postop treatment with pulmonary toilet. DVT prophylaxis and GI prophylaxis as necessary. Check CBC and CMP in a.m. Will assist will insomnia and anxiety
[2020-02-14 11:32] LABS: African American GFR (CKD) 117.2 (60.0-200.0); Albumin 4.2 g/dL (3.80-4.90); Albumin/Globulin Ratio 2.1 (1.60-3.17); Anion Gap 8.3 mmol/L (4.00-12.00); BUN/Creat Ratio 13.33 Ratio (12.00-20.00); Calcium 9.5 mg/dL (8.7-10.3); Carbon Dioxide 28.7 mmol/L (21.6-31.8); Non-African American GFR(CKD) 101.2 (60.0-200.0); Potassium 4.1 mmol/L (3.5-5.5); Total Bilirubin 0.7 mg/dL (0.3-1.2); Total Protein 6.2 g/dL (6.2-8.2)
[2020-02-14 13:00] LABS: Anisocytosis (M) Present; Lymphocytes # (M) 1.48 k/uL (1.0-4.8); Monocytes # (M) 0.53 k/uL (0-1.0); Neutrophils # (M) 8.59 k/uL (1.3-7.7); Neutrophils % (M) 81 %; Nucleated Red Blood Cells 0 /100 WBC (0-0); Poikilocytosis (M) Present; Total Cells Counted 100
--- NOTE | 2020-02-14 13:24 | P.PN ---
Subjective Progress Note Date: 02/14/20 CHIEF COMPLAINT: Diverticulitis HISTORY OF PRESENT ILLNESS: Patient with diverticulitis status post lower anterior resection and incidental appendectomy. Patient is reporting some pain. He does have epidural. Denies having a bowel movement. Denies any nausea or vomiting. Patient had difficulty with sleeping. Medicine his added Xanax as needed. Incision dressing was changed yesterday. Afebrile. WBC 10.6 PHYSICAL EXAM: VITAL SIGNS: Reviewed. GENERAL: Well-developed in no acute distress. HEENT: No sclera icterus. Extraocular movements grossly intact. Moist buccal mucosa. Head is atraumatic, normocephalic. ABDOMEN: Soft. Mildly distended. Minimal blood noted at distal aspect of dres sing NEUROLOGIC: Alert and oriented. Cranial nerves II through XII grossly intact. ASSESSMENT: 1. Diverticulitis status post lower anterior resection and incidental appendectomy. Postoperative day #2 PLAN: -continue clear liquid diet -Continue epidural -Encouraged patient to increase activity -Encouraged patient to use incentive spirometer Physician Clean Out Driller note has been reviewed by physician. Signing provider agrees with the documented findings, assessment, and plan of care. Objective - Vital Signs Vital signs: Vital Signs Temp 98.5 F 02/14/20 07:00 Pulse 64 02/14/20 07:00 Resp 16 02/14/20 07:00 BP 116/60 02/14/20 07:00 Pulse Ox 99 02/14/20 08:24 Intake & Output 02/13/20 02/14/20 02/14/20 18:59 06:59 18:59 Intake Total 150 2550 Output Total 500 2150 Balance -350 400 Intake: Intake, IV Titration 150 2050 Amount D5-0.45% NaCl with KCl 1990 20Meq/l 1,000 ml @ 125 mls/hr IV .Q8H [facility] Rx#: [id number] Lactated Ringers 1,000 ml 60 @ 20 mls/hr IV .Q24H [facility] Rx#:[id number] Ropivacaine 250 mg 150 Hydromorphone (Pf) 5 mg In Sodium Chloride 0.9% 200 ml @ Per Protocol EPIDURAL .Q0M PRN Rx#: [id number] Oral 500 Output: Urine 500 2150 Other: Voiding Method Indwelling Catheter Indwelling Catheter Indwelling Catheter # Voids 1 - Labs CBC & Chem 7: 02/14/20 07:00 09/25/20 07:00 Labs: Abnormal Lab Results - Last 24 Hours (Table) 02/14/20 02/14/20 Range/Units 07:00 07:00 Neutrophils # (Manual) 8.59 H (1.3-7.7) k/uL BUN 8.0 L (9.0-27.0) mg/dL AST 46 H (14-35) U/L Alkaline Phosphatase 26 L (41-126) U/L
[2020-02-14] MEDS: ROPIVACAINE 250 MG, HYDROMORPHONE (PF) 5 MG in SODIUM CHLORIDE 0.9% 200 ML EPIDURAL PRN (17:47)
[2020-02-14] MEDS: LACTATED RINGERS 1,000 ML IV SCH (20:33)
[2020-02-15] MEDS: HEPARIN SODIUM,PORCINE 5,000 UNIT/ML 1 ML VIAL SQ SCH ×4 (00:25→23:34)
[2020-02-15] MEDS: D5-0.45% NACL WITH KCL 20MEQ/L 1,000 ML IV SCH ×3 (05:57→20:57)
--- NOTE | 2020-02-15 06:35 | P.PN ---
Progress Note - Text Progress Note Date: 02/15/20 Patient without complaints. Tolerating clears. Denies headache or weakness. Pain 5/10. Epidural at 7 ml/hr. Epidural site clean and dry. POD#3 s/p LAR. Instructed nursing staff to remove epidural today.
[2020-02-15 06:42] LABS: HCT 39.3 % (39.0-53.0); MCH 30.6 pg (25.0-35.0); MCHC 33.1 g/dL (31.0-37.0); MCV 92.6 fL (80.0-100.0); Mean Platelet Volume 7.6; Platelet Count 184 k/uL (150-450); RBC 4.24 m/uL (4.30-5.90); RDW 12.6 % (11.5-15.5); WBC 7.7 k/uL (3.8-10.6)
[2020-02-15] MEDS: lisinopriL 20 MG TAB PO SCH ×2 (08:32→20:53)
[2020-02-15] MEDS: FAMOTIDINE 20 MG/2 ML VIAL IV SCH ×2 (08:32→20:53)
[2020-02-15] MEDS: allopurinoL 100 MG TAB PO SCH (08:32)
[2020-02-15] MEDS: ALVIMOPAN 12 MG CAPSULE PO SCH ×2 (08:32→20:53)
--- NOTE | 2020-02-15 10:36 | P.PN ---
Subjective Progress Note Date: 02/15/20 Principal diagnosis: Diverticulitis Patient doing well today. Epidural was removed. Aims well-controlled. T-max 99.2. White blood cell count 7.7. Tolerating clears. He is having flatus. Objective - Vital Signs Vital signs: Vital Signs Temp 99.2 F 02/15/20 07:00 Pulse 74 02/15/20 08:30 Resp 20 02/15/20 08:30 BP 109/58 02/15/20 07:00 Pulse Ox 98 02/15/20 07:00 Intake & Output 02/14/20 02/15/20 02/15/20 18:59 06:59 18:59 Intake Total 8290.391 3383 Output Total 1250 2975 Balance 9.083 5 Intake: Intake, IV Titration 511.770 5855 Amount D5-0.45% NaCl with KCl 1700 20Meq/l 1,000 ml @ 125 mls/hr IV .Q8H [facility] Rx#: [id number] Ropivacaine 250 mg 179.083 Hydromorphone (Pf) 5 mg In Sodium Chloride 0.9% 200 ml @ Per Protocol EPIDURAL .Q0M [facility] Rx#: [id number] Oral 1080 1280 Output: Urine 1250 2975 Uretheral (Fountain) 950 950 Other: Voiding Method Indwelling Catheter Indwelling Catheter Indwelling Catheter - Exam Abdomen: Soft, nondistended, dressing clean and dry, minimal tenderness - Labs CBC & Chem 7: 02/15/20 06:13 02/14/20 07:00 Labs: Abnormal Lab Results - Last 24 Hours (Table) 02/14/20 02/14/20 02/15/20 Range/Units 07:00 07:00 06:13 RBC 4.24 L (4.30-5.90) m/uL Neutrophils # (Manual) 8.59 H (1.3-7.7) k/uL BUN 8.0 L (9.0-27.0) mg/dL AST 46 H (14-35) U/L Alkaline Phosphatase 26 L (41-126) U/L Assessment and Plan (1) Diverticulitis large intestine w/o perforation or abscess w/o bleeding Narrative/Plan: Patient doing well today. Epidural and Fountain catheter being removed. Will increase diet. Recheck labs tomorrow. Ambulate. Current Visit: Yes Status: Acute Code(s): K57.32 - DVTRCLI OF LG INT W/O PERFORATION OR ABSCESS W/O BLEEDING SNOMED Code(s): 1768099
[2020-02-15] MEDS ORDERED: HYDROcodone/APAP 5-325MG 1 EACH TAB PO PRN (10:37)
[2020-02-15] MEDS: ALBUTEROL NEBULIZED 2.5 MG/3 ML INHALATION PRN (10:49)
[2020-02-15] MEDS: KETOROLAC 15 MG/ML 1 ML VIAL IVP SCH ×3 (12:07→23:34)
--- NOTE | 2020-02-15 14:57 | PN ---
PROGRESS NOTE DATE OF SERVICE: 02/15/2020 INTERVAL HISTORY: I am covering for Dr. Au. This 70-year-old gentleman was admitted with low anterior resection for diverticulitis. He is being closely monitored. Patient has had some cough at this time. The patient is on bronchodilators. The white count of 13.2, which is improving. PAST MEDICAL HISTORY: Reviewed. REVIEW OF SYSTEMS: CARDIOVASCULAR SYSTEM: As mentioned earlier. RESPIRATORY: As mentioned earlier. GI: As mentioned earlier. GI: As mentioned earlier. NERVOUS SYSTEM: No numbness or weakness. CURRENT MEDICATIONS: Reviewed include [place] 5 mg, Zyloprim, Xanax, Cepacol, Pepcid, Dilaudid, Toradol, lactated Ringer's, Zestril, Narcan, Zofran. PHYSICAL EXAM: Patient is alert, oriented x3. Pulse 74, blood pressure 101/58, respiration 20, temperature 99.2, pulse ox 98% on 2 L. HEENT: Conjunctivae are normal. NECK: No jugular venous distention. CARDIAC: S1 and S2 muffled. RESPIRATORY: A few scattered rhonchi and crackles. ABDOMEN: Soft, status post surgery. Minimal postoperative tenderness present. NERVOUS SYSTEM: Higher functions as mentioned earlier. Moves all four limbs. No focal motor or sensory deficits. LYMPHATICS: No lymph nodes palpable in the neck or axillae. SKIN: No ulcer, no ulcer. LABS: WBC 7.3, hemoglobin 13. Labs are noted. ASSESSMENT: 1. Status post low anterior resection for diverticulitis. 2. Chronic obstructive pulmonary disease. 3. History of gastroesophageal reflux disease. 4. Hypertension. 5. History of hemorrhoids. 6. History of gout. 7. History of anal stricture. 8. History of colonoscopy. 9. History of cardiac catheterization. 10.History of continued ongoing nicotine dependence. 11.FULL CODE. RECOMMENDATIONS AND DISCUSSION: In this 70-year-old gentleman who presented with multiple complex medical issues, we will monitor the patient closely. Monitor blood pressure closely. Otherwise, I would recommend a chest x-ray to rule out the possibility of any acute pulmonary abnormalities. Otherwise, resume the home medications. Closely follow with Surgery. Further recommendations to follow. MMODL / IJN: [id number] / MTDD
[2020-02-15] MEDS: NICOTINE 21MG/24HR PATCH TRANSDERM SCH (15:28)
--- NOTE | 2020-02-15 15:47 | XR ---
EXAMINATION TYPE: XR chest 1V portable DATE OF EXAM: 02/15/2020 COMPARISON: 12/23/2018 HISTORY: Short of breath TECHNIQUE: Single view FINDINGS: Heart is normal. Lungs are clear of consolidation. There is some minimal linear density lef t lung base. There are no hilar masses. Bony thorax is intact. IMPRESSION: Mild subsegmental atelectasis. Normal heart. There is overall not a adverse change compar ed to old exam.
[2020-02-15] MEDS: LACTATED RINGERS 1,000 ML IV SCH (20:52)
[2020-02-15] MEDS: ALPRAZolam 0.5 MG TAB PO PRN (23:34)
[2020-02-16] MEDS: KETOROLAC 15 MG/ML 1 ML VIAL IVP SCH ×3 (06:05→17:58)
[2020-02-16] MEDS: D5-0.45% NACL WITH KCL 20MEQ/L 1,000 ML IV SCH ×3 (06:06→20:44)
[2020-02-16 07:47] LABS: Basophils % (A) 0 %; Eosinophils # (A) 0.2 k/uL (0-0.7); Eosinophils % (A) 3 %; HCT 38.3 % (39.0-53.0); HGB 12.7 gm/dL (13.0-17.5); Lymphocytes # (A) 1.1 k/uL (1.0-4.8); Lymphocytes % (A) 18 %; MCH 30.9 pg (25.0-35.0); MCHC 33.1 g/dL (31.0-37.0); MCV 93.2 fL (80.0-100.0); Mean Platelet Volume 7.5; Monocytes # (A) 0.4 k/uL (0-1.0); Monocytes % (A) 7 %; Neutrophils # (A) 4.1 k/uL (1.3-7.7); Neutrophils % (A) 71 %; Platelet Count 201 k/uL (150-450); RBC 4.11 m/uL (4.30-5.90); WBC 5.8 k/uL (3.8-10.6)
[2020-02-16 08:02] LABS: African American GFR (CKD) >90 (>60 ml/min/1.73 sqM); Anion Gap 5 mmol/L; Blood Urea Nitrogen 8 mg/dL (9-20); Calcium 8.7 mg/dL (8.4-10.2); Carbon Dioxide 29 mmol/L (22-30); Chloride 99 mmol/L (98-107); Glucose 96 mg/dL (74-99); Non-African American GFR(CKD) >90 (>60 ml/min/1.73 sqM); Potassium 3.7 mmol/L (3.5-5.1); Sodium 133 mmol/L (137-145)
[2020-02-16] MEDS: NICOTINE 21MG/24HR PATCH TRANSDERM SCH (08:52)
[2020-02-16] MEDS: HEPARIN SODIUM,PORCINE 5,000 UNIT/ML 1 ML VIAL SQ SCH ×2 (08:52→15:14)
[2020-02-16] MEDS: ALVIMOPAN 12 MG CAPSULE PO SCH ×2 (08:52→20:43)
[2020-02-16] MEDS: allopurinoL 100 MG TAB PO SCH (08:52)
[2020-02-16] MEDS: FAMOTIDINE 20 MG/2 ML VIAL IV SCH ×2 (08:52→20:43)
[2020-02-16] MEDS: lisinopriL 20 MG TAB PO SCH ×2 (08:52→20:43)
--- NOTE | 2020-02-16 10:50 | P.PN ---
Subjective Progress Note Date: 02/16/20 Principal diagnosis: Diverticulitis Patient doing well today. He has had 3 bowel movements. White blood cell count was normal. Pain is minimal. He is increasing his activity. Objective - Vital Signs Vital signs: Vital Signs Temp 97.8 F 02/16/20 07:00 Pulse 84 02/16/20 08:52 Resp 18 02/16/20 08:52 BP 125/72 02/16/20 07:00 Pulse Ox 93 L 02/16/20 07:00 Intake & Output 02/15/20 02/16/20 02/16/20 18:59 06:59 18:59 Intake Total 875 2300 Output Total 475 475 Balance 400 1825 Intake: Intake, IV Titration 875 1500 Amount D5-0.45% NaCl with KCl 875 1500 20Meq/l 1,000 ml @ 125 mls/hr IV .Q8H [facility] Rx#: [id number] Oral 800 Output: Urine 475 475 Uretheral (Fountain) 450 450 Other: Voiding Method Indwelling Catheter Indwelling Catheter Indwelling Catheter # Voids 3 - Exam Abdomen: Soft, nondistended, incision clean and dry - Labs CBC & Chem 7: 02/16/20 06:46 02/16/20 06:46 Labs: Abnormal Lab Results - Last 24 Hours (Table) 02/16/20 02/16/20 Range/Units 06:46 06:46 RBC 4.11 L (4.30-5.90) m/uL Hgb 12.7 L (13.0-17.5) gm/dL Hct 38.3 L (39.0-53.0) % Sodium 133 L (137-145) mmol/L BUN 8 L (9-20) mg/dL Creatinine 0.54 L (0.66-1.25) mg/dL Assessment and Plan (1) Diverticulitis large intestine w/o perforation or abscess w/o bleeding Narrative/Plan: Patient doing well at this time. Will increase diet. He had abdominal support. Possible discharge tomorrow or Monday. Current Visit: Yes Status: Acute Code(s): K57.32 - DVTRCLI OF LG INT W/O PERFORATION OR ABSCESS W/O BLEEDING SNOMED Code(s): 9793612
[2020-02-16] MEDS: LACTATED RINGERS 1,000 ML IV SCH (19:00)
[2020-02-16] MEDS: ALPRAZolam 0.5 MG TAB PO PRN (20:43)
--- NOTE | 2020-02-16 23:32 | PN ---
PROGRESS NOTE DATE OF SERVICE: 02/15/2009 I am covering for Dr. Au. This 70-year-old gentleman was admitted after a low anterior resection for diverticulitis, is being closely monitored. No chest pain. No palpitations. No fever. Patient has cough. Patient has resumed bronchodilators. Most recent chest x- ray showed some subsequent segmental atelectasis. No chest pain. No palpitations. No fever. PHYSICAL EXAMINATION: On exam, alert and oriented x3. Pulse 75, blood pressure 152/76, respiration 18, temperature 98.2, pulse ox 96% on room air. HEENT: Conjunctivae normal. Oral mucosa moist, NECK: No jugular venous distention. No carotid bruit. No lymph node enlargement. CARDIOVASCULAR: S1, S2 muffled. RESPIRATORY: Breath sounds diminished at the bases. A few scattered rhonchi. ABDOMEN: Soft, status post surgery. LEGS: No edema. No swelling. NERVOUS SYSTEM: No focal deficits. LABS: Hemoglobin 12.7, sodium 133. ASSESSMENT: 1. Status post low anterior resection for diverticulitis. 2. Subsegmental atelectasis. 3. Chronic obstructive pulmonary disease. 4. History of gastroesophageal reflux disease. 5. Hypertension. 6. History of hemorrhoids. 7. History of gout. 8. History of anal stricture. 9. History of colonoscopy. 10.History of cardiac catheterization. 11.History of continued ongoing nicotine dependence. 12.FULL CODE. RECOMMENDATIONS AND DISCUSSION: I recommend to continue current medications, continue symptomatic treatment. Continue with bronchodilators. Continue with incentive spirometry. Dr. Au will follow tomorrow. Otherwise, rest of the recommendations per Surgery. MMODL / IJN: [id number] /
[2020-02-17] MEDS: HEPARIN SODIUM,PORCINE 5,000 UNIT/ML 1 ML VIAL SQ SCH ×2 (00:06→07:42)
[2020-02-17] MEDS: KETOROLAC 15 MG/ML 1 ML VIAL IVP SCH ×3 (00:07→11:41)
[2020-02-17 02:25] VITALS: PULSE 70
[2020-02-17] MEDS: D5-0.45% NACL WITH KCL 20MEQ/L 1,000 ML IV SCH (05:49)
[2020-02-17 07:20] LABS: Basophils % (A) 0 %; Eosinophils # (A) 0.1 k/uL (0-0.7); Eosinophils % (A) 2 %; HCT 38.9 % (39.0-53.0); HGB 13.2 gm/dL (13.0-17.5); Lymphocytes % (A) 18 %; MCH 31.5 pg (25.0-35.0); MCV 92.5 fL (80.0-100.0); Mean Platelet Volume 7.6; Monocytes # (A) 0.5 k/uL (0-1.0); Monocytes % (A) 8 %; Neutrophils # (A) 4.1 k/uL (1.3-7.7); Neutrophils % (A) 70 %; Platelet Count 202 k/uL (150-450); RDW 12.9 % (11.5-15.5); WBC 5.9 k/uL (3.8-10.6)
[2020-02-17 07:30] VITALS: BP 159/90; RESP 16; TEMP 97.9
[2020-02-17] MEDS: lisinopriL 20 MG TAB PO SCH (07:42)
[2020-02-17] MEDS: allopurinoL 100 MG TAB PO SCH (07:42)
[2020-02-17] MEDS: FAMOTIDINE 20 MG/2 ML VIAL IV SCH (07:42)
[2020-02-17] MEDS: NICOTINE 21MG/24HR PATCH TRANSDERM SCH (07:42)
[2020-02-17] MEDS: ALVIMOPAN 12 MG CAPSULE PO SCH (07:42)
--- NOTE | 2020-02-17 08:06 | P.PN ---
Subjective Principal diagnosis: POD #2 for Low Anterior resection The patient is POD #5 for Low anterior resection for diverticular disease. Poor sleep is noted. Some anxiety is stated. However, the patient states passing flatus appropriately. Objective - Vital Signs Vital signs: Vital Signs Temp 97.9 F 02/17/20 07:00 Pulse 70 02/17/20 07:00 Resp 16 02/17/20 07:00 BP 159/90 02/17/20 07:00 Pulse Ox 96 02/17/20 07:00 Intake & Output 02/16/20 02/17/20 02/17/20 18:59 06:59 18:59 Intake Total 850 Output Total 475 Balance 375 Intake: Intake, IV Titration 300 Amount D5-0.45% NaCl with KCl 300 20Meq/l 1,000 ml @ 125 mls/hr IV .Q8H [facility] Rx#: [id number] Oral 550 Output: Urine 475 Uretheral (Fountain) 450 Other: Voiding Method Indwelling Catheter Indwelling Catheter # Voids 2 2 - Constitutional General appearance: Present: average body habitus - EENT Eyes: Absent: abnormal pupil - Neck Neck: Absent: lymphadenopathy - Respiratory Respiratory: bilateral: CTA - Cardiovascular Rhythm: regular Heart sounds: normal: S1, S2 Abnormal Heart Sounds: Absent: S3 Gallop - Gastrointestinal General gastrointestinal: Present: soft. Absent: tenderness - Integumentary Integumentary: Absent: cellulitis - Labs CBC & Chem 7: 02/17/20 06:38 02/16/20 06:46 Labs: Abnormal Lab Results - Last 24 Hours (Table) 02/17/20 Range/Units 06:38 RBC 4.20 L (4.30-5.90) m/uL Hct 38.9 L (39.0-53.0) % Assessment and Plan (1) Diverticulitis large intestine w/o perforation or abscess w/o bleeding Current Visit: Yes Status: Acute Code(s): K57.32 - DVTRCLI OF LG INT W/O PERFORATION OR ABSCESS W/O BLEEDING SNOMED Code(s): 5230827 (2) HTN (hypertension) Current Visit: Yes Status: Acute Code(s): I10 - ESSENTIAL (PRIMARY) HYPERTENSION SNOMED Code(s): 63717623 (3) COPD (chronic obstructive pulmonary disease) Current Visit: Yes Status: Acute Code(s): J44.9 - CHRONIC OBSTRUCTIVE PULMONARY DISEASE, UNSPECIFIED SNOMED Code(s): 01308932 Plan: Hopefully we can discharged later today as the patient is tolerating diet and passing flatus. Follow-up with me in about 7 days
--- NOTE | 2020-02-17 08:48 | P.PN ---
Subjective Progress Note Date: 02/17/20 CHIEF COMPLAINT: Diverticulitis HISTORY OF PRESENT ILLNESS: Patient with diverticulitis status post lower anterior resection and incidental appendectomy. Patient denies any pain. He is passing gas but still has not had a bowel movement. He denies any nausea or vomiting. He is on a soft low fiber diet. He is afebrile. WBC is 5.9. PHYSICAL EXAM: VITAL SIGNS: Reviewed. GENERAL: Well-developed in no acute distress. HEENT: No sclera icterus. Extraocular movements grossly intact. Moist buccal mucosa. Head is atraumatic, normocephalic. ABDOMEN: Soft. Incision site clean dry and intact NEUROLOGIC: Alert and oriented. Cranial nerves II through XII grossly intact. ASSESSMENT: 1. Diverticulitis status post lower anterior resection and incidental appendectomy. PLAN: -Continue soft low fiber diet -Encouraged patient to increase activity -Encouraged patient to use incentive spirometer -Anticipate discharge possibly tomorrow. Awaiting patient to have a bowel movement Physician Loom Repairer note has been reviewed by physician. Signing provider agrees with the documented findings, assessment, and plan of care. Objective - Vital Signs Vital signs: Vital Signs Temp 97.9 F 02/17/20 07:00 Pulse 70 02/17/20 07:00 Resp 16 02/17/20 07:00 BP 159/90 02/17/20 07:00 Pulse Ox 96 02/17/20 07:00 Intake & Output 02/16/20 02/17/20 02/17/20 18:59 06:59 18:59 Intake Total 850 Output Total 475 Balance 375 Intake: Intake, IV Titration 300 Amount D5-0.45% NaCl with KCl 300 20Meq/l 1,000 ml @ 125 mls/hr IV .Q8H [facility] Rx#: [id number] Oral 550 Output: Urine 475 Uretheral (Fountain) 450 Other: Voiding Method Indwelling Catheter Indwelling Catheter # Voids 2 2 - Labs CBC & Chem 7: 02/17/20 06:38 02/16/20 06:46 Labs: Abnormal Lab Results - Last 24 Hours (Table) 02/17/20 Range/Units 06:38 RBC 4.20 L (4.30-5.90) m/uL Hct 38.9 L (39.0-53.0) %
[2020-02-17 11:04] LABS: African American GFR (CKD) 126.4 (60.0-200.0); Anion Gap 6.8 mmol/L (4.00-12.00); Calcium 8.9 mg/dL (8.7-10.3); Carbon Dioxide 24.2 mmol/L (21.6-31.8); Potassium 4.3 mmol/L (3.5-5.5)
--- NOTE | 2020-02-17 13:32 | P.DS ---
Providers Date of admission: 02/12/20 09:09 Expected date of discharge: 02/17/20 Attending physician: Chilo Escobar Consults: 02/12/20 12:45 Consult Physician Routine Consulting Provider: Olu Au Consult Reason/Comments: Medical management Do you want consulting provider notified?: Yes Primary care physician: Olu Au Hospital Course: Discharge diagnosis 1. Diverticulitis status post lower anterior resection and incidental appendectomy. Hospital course This is a 70-year-old male with a known history of chronic problems with diverticulitis. His recent CAT scan shows thickening of the sigmoid colon and evidence of diverticulosis. He is status post lower anterior resection and incidental appendectomy. In patient is having bowel movements. He is toleratin g diet. He is up ambulating. He is afebrile. Patient is stable for discharge home. Physician Leather Goods Assembler note has been reviewed by physician. Signing provider agrees with the documented findings, assessment, and plan of care. Patient Condition at Discharge: Stable Plan - Discharge Summary Discharge Rx Participant: Yes New Discharge Prescriptions: New Hydrocodone/Acetaminophen [Camino 5-325] 1 tab PO Q4HR PRN 3 Days #18 tab PRN Reason: Pain Docusate [Colace] 100 mg PO BID #30 capsule Continue Albuterol Sulfate [Proair Hfa] 1 - 2 puff INHALATION Q6HR PRN #1 inhaler PRN Reason: Shortness Of Breath allopurinoL [Zyloprim] 100 mg PO DAILY Enalapril [Vasotec] 20 mg PO BID Discontinued Ibuprofen [Motrin Ib] 400 mg PO Q8H PRN PRN Reason: Pain Acetaminophen [Tylenol] 325 - 650 mg PO DIRECTED PRN PRN Reason: Pain Acetaminophen/Diphenhydramine [Tylenol PM 500-25mg] 1 tab PO HS PRN PRN Reason: Insomnia Discharge Medication List Albuterol Sulfate [Proair Hfa] 1 - 2 puff INHALATION Q6HR PRN #1 inhaler 12/23/18 [Rx] Enalapril [Vasotec] 20 mg PO BID 01/21/20 [History] allopurinoL [Zyloprim] 100 mg PO DAILY 01/21/20 [History] Docusate [Colace] 100 mg PO BID #30 capsule 02/17/20 [Rx] Hydrocodone/Acetaminophen [Camino 5-325] 1 tab PO Q4HR PRN 3 Days #18 tab 02/17/20 [Rx] Follow up Appointment(s)/Referral(s): Chilo Escobar MD [STAFF PHYSICIAN] - 1 Week Olu Au MD [Primary Care Provider] - 1 Week Activity/Diet/Wound Care/Special Instructions: No driving while taking Camino No lifting over 10 pounds You may shower. No soaking or tub baths 2 weeks Very light activity until you are reevaluated at your follow up appointment with your surgeon Diet: low fiber Discharge Disposition: HOME SELF-CARE
== END 2020-02-17 15:55 | disposition home or self-care (01) | DRG 330 ==
LOC: 2ORMAIN 09:09 → 4SSUR 12:42
PROVIDERS: ADMIT Surgery; ATTEND Surgery
PROC: 0DTN0ZZ Resection of Sigmoid Colon, Open Approach (ICD-10-PCS; principal; 2020-02-12 11:05)
PROC: 0DTJ0ZZ Resection of Appendix, Open Approach (ICD-10-PCS; principal; 2020-02-12 11:05)
DX: K57.32 Diverticulitis of large intestine without perforation or abscess without bleeding (principal); J98.11 Atelectasis; I10 Essential (primary) hypertension; F17.200 Nicotine dependence, unspecified, uncomplicated; F41.9 Anxiety disorder, unspecified; J44.9 Chronic obstructive pulmonary disease, unspecified; K21.9 Gastro-esophageal reflux disease without esophagitis; M10.9 Gout, unspecified; K66.0 Peritoneal adhesions (postprocedural) (postinfection); Z79.899 Other long term (current) drug therapy; Z98.890 Other specified postprocedural states; Z88.1 Allergy status to other antibiotic agents; Z87.19 Personal history of other diseases of the digestive system
CPT/HCPCS: 71045; 80048; 80053; 85025; 85027; 86850; 86900; 86901; 88302; 88307; 94640; 94760

== ENCOUNTER 2020-02-22 11:42 | Emergency (ER) | payer MEDICARE, BC ==
[2020-02-22 11:53] VITALS: BP 118/81; PULSE 82; RESP 18; TEMP 98.7
--- NOTE | 2020-02-22 12:29 | ED ---
General Adult HPI - General Chief complaint: Skin/Abscess/Foreign Body Stated complaint: surgical site infection Time Seen by Provider: 02/22/20 11:57 Source: patient, family Mode of arrival: ambulatory Limitations: no limitations - History of Present Illness Initial comments: 70yo male s/p bowel resection presenting today for cc of surgical site infect ion for diverticulitis , redness near bottom 4 felecia, some drainage, clear/bloody mild pain to palpation ongoing x 2 days. Patient denies any fever or chills general malaise or abdominal pain. Denies nausea, vomiting and states that he has had no changes in his bowel movements. Patient called Dr. Escobar surgeon who told him to come to ER to have some felecia removed and antibiotics prescribed. Leighton has no additional complaints. - Related Data Home Medications Medication Instructions Recorded Confirmed Enalapril [Vasotec] 20 mg PO BID 01/21/20 02/10/20 allopurinoL [Zyloprim] 100 mg PO DAILY 01/21/20 02/10/20 Previous Rx's Medication Instructions Recorded Albuterol Sulfate [Proair Hfa] 1 - 2 puff INHALATION Q6HR PRN #1 12/23/18 inhaler Docusate [Colace] 100 mg PO BID #30 capsule 02/17/20 Hydrocodone/Acetaminophen [[place] 1 tab PO Q4HR PRN 3 Days #18 tab 02/17/20 5-325] Clindamycin [Cleocin] 450 mg PO Q8H 7 Days #63 capsule 02/22/20 Sulfamethox-Tmp 800-160Mg [Bactrim 1 tab PO Q12HR 7 Days #14 tab 02/23/20 DS 800-160 mg] Allergies Allergy/AdvReac Type Severity Reaction Status Date / Time cephalexin [From Keflex] AdvReac dizzyness Verified 02/22/20 11:53 Review of Systems ROS Statement: Those systems with pertinent positive or pertinent negative responses have been documented in the HPI. ROS Other: All systems not noted in ROS Statement are negative. Past Medical History Past Medical History: COPD, GERD/Reflux, Hypertension Additional Past Medical History / Comment(s): Having pain in rectum, hx hemorrhoids. Gout. Recent colonoscopy, found diverticulitis, anal stricture. History of Any Multi-Drug Resistant Organisms: None Reported Past Surgical History: Bowel Resection, Heart Catheterization Additional Past Surgical History / Comment(s): Hemorrhoid laser. Colonoscopies, last 01/21/20. Past Anesthesia/Blood Transfusion Reactions: No Reported Reaction Past Psychological History: No Psychological Hx Reported Smoking Status: Current every day smoker Past Alcohol Use History: Occasional Past Drug Use History: None Reported - Past Family History Mother Family Medical History: No Reported History General Exam - General Exam Comments Initial Comments: General: The patient is awake and alert, in no distress, and does not appear acutely ill. Eye: Pupils are equal, round and reactive to light, extra-ocular movements are intact. No nystagmus. There is normal conjunctiva bilaterally. No signs of icterus. Cardiovascular: There is a regular rate and rhythm. No murmur, rub or gallop is appreciated. Respiratory: Lungs are clear to auscultation, respirations are non-labored, breath sounds are equal. No wheezes, stridor, rales, or rhonchi. Gastrointestinal: Soft, non-distended, non-tender abdomen without masses or organomegaly noted. There is no rebound or guarding present. Linear mid abdomen incision with felecia in place--some redness near the bottom 4 felecia, faint erythema serosanguineous drainage, no purulent drainge or palpable area of fluctuance Musculoskeletal: Normal ROM, no tenderness. Strength 5/5. Sensation intact. Radial pulses equal bilaterally 2+. Neurological: A&O x 3. CN II-XII intact grossly, There are no obvious motor or sensory deficits. Coordination appears grossly intact. Speech is normal. Skin: Skin is warm and dry and no rashes or lesions are noted. Psychiatric: Cooperative, appropriate mood & affect, normal judgment. Limitations: no limitations Course Vital Signs 02/22/20 02/22/20 11:47 12:51 Temperature 98.7 F 98.7 F Pulse Rate 82 82 Respiratory 18 18 Rate Blood Pressure 118/81 118/81 O2 Sat by Pulse 96 96 Oximetry Medical Decision Making - Medical Decision Making Discussed case with Dr. Escobar he wants felecia near redness removed, abx prescribed and discharge. pt VS WNL. he does not appear toxic. suspected developing infection appears superfiical. .abx prescribed. pt discharged appearing well. pharmacy called back 02/22 stating that he is actually allergic clindamycin AND keflex. discussed case again with attending and Dr. Langley recommended bactrim. Disposition Clinical Impression: Surgical site infection Disposition: HOME SELF-CARE Condition: Good Instructions (If sedation given, give patient instructions): Surgical Site Infections (ED) Additional Instructions: Please use medication as discussed. Please follow-up with family doctor in the next 2 days. Please return to emergency room if the symptoms increase or worsen or for any other concerns. Prescriptions: Sulfamethox-Tmp 800-160Mg [Bactrim DS 800-160 mg] 1 tab PO Q12HR 7 Days #14 tab Clindamycin [Cleocin] 450 mg PO Q8H 7 Days #63 capsule Is patient prescribed a controlled substance at d/c from ED?: No Referrals: Olu Au MD [Primary Care Provider] - 1-2 days Time of Disposition: 12:27
== END 2020-02-22 12:52 | disposition home or self-care (01) ==
LOC: EC 11:42
DX: T81.41XA Infection following a procedure, superficial incisional surgical site, initial encounter (principal); I10 Essential (primary) hypertension; M10.9 Gout, unspecified; F17.200 Nicotine dependence, unspecified, uncomplicated; Z79.899 Other long term (current) drug therapy; Z88.1 Allergy status to other antibiotic agents; Z95.5 Presence of coronary angioplasty implant and graft
CPT/HCPCS: 99283

== ENCOUNTER 2021-09-18 11:38 | Inpatient (IN) | payer MEDICARE, BC ==
[2021-09-18] MEDS ORDERED: SODIUM CHLORIDE 0.9% 1,000 ML IV STA (12:29)
[2021-09-18] MEDS ORDERED: MORPHINE SULFATE 4 MG/ML SYRINGE IV STA (12:29)
--- NOTE | 2021-09-18 12:34 | ED ---
General Adult HPI - General Chief complaint: Abdominal Pain Stated complaint: abd pain, SOB Time Seen by Provider: 09/18/21 12:00 Source: patient, family, RN notes reviewed Mode of arrival: ambulatory Limitations: no limitations - History of Present Illness Initial comments: Patient is a pleasant 71-year-old male presenting to the emergency Department w ith abdominal discomfort. Onset of symptoms was around a month ago. Discomfort has not improved. Patient did have computed tomography scan done several weeks ago of the chest and abdomen with questionable spots in the lungs. Patient is supposed to have a PET scan. Patient does feel somewhat short of breath. No significant cough however patient did have an episode of hemoptysis today. Abdominal discomfort is left flank and persistent. Patient states is difficult to lie down. - Related Data Home Medications Medication Instructions Recorded Confirmed Enalapril [Vasotec] 20 mg PO BID 01/21/20 09/18/21 allopurinoL [Zyloprim] 100 mg PO DAILY 01/21/20 09/18/21 Albuterol Sulfate [Proair Hfa] 2 puff INHALATION RT-Q6H PRN 09/18/21 09/18/21 Tamsulosin [Flomax] 0.8 mg PO DAILY 09/18/21 09/18/21 Zolpidem [Ambien] 5 mg PO HS 09/18/21 09/18/21 traMADol HCL 50 mg PO Q4H PRN 09/18/21 09/18/21 Allergies Allergy/AdvReac Type Severity Reaction Status Date / Time cephalexin [From Keflex] AdvReac dizzyness Verified 09/18/21 15:10 Review of Systems ROS Statement: Those systems with pertinent positive or pertinent negative responses have been documented in the HPI. ROS Other: All systems not noted in ROS Statement are negative. Constitutional: Denies: fever Eyes: Denies: eye pain ENT: Denies: ear pain Respiratory: Reports: as per HPI Cardiovascular: Reports: as per HPI Endocrine: Denies: fatigue Gastrointestinal: Reports: as per HPI, abdominal pain Genitourinary: Denies: dysuria Musculoskeletal: Reports: as per HPI Skin: Denies: rash Neurological: Denies: weakness Past Medical History Past Medical History: COPD, GERD/Reflux, Hypertension Additional Past Medical History / Comment(s): Having pain in rectum, hx hemorrhoids. Gout. Recent colonoscopy, found diverticulitis, anal stricture. History of Any Multi-Drug Resistant Organisms: None Reported Past Surgical History: Bowel Resection, Heart Catheterization Additional Past Surgical History / Comment(s): Hemorrhoid laser. Colonoscopies, last 01/21/20. Past Anesthesia/Blood Transfusion Reactions: No Reported Reaction Past Psychological History: No Psychological Hx Reported Smoking Status: Current every day smoker Past Alcohol Use History: Occasional Past Drug Use History: None Reported - Past Family History Mother Family Medical History: No Reported History General Exam Limitations: no limitations General appearance: alert, in no apparent distress Head exam: Present: normocephalic Eye exam: Present: normal appearance Neck exam: Present: normal inspection Respiratory exam: Present: decreased breath sounds Cardiovascular Exam: Present: regular rate, normal rhythm Expanded Peripheral pulses: 2+: Radial (R), Radial (L), Posterior Tibialis (R), Posterior Tibialis (L) GI/Abdominal exam: Present: soft, tenderness (Moderate tenderness left lower abdomen the left flank), normal bowel sounds. Absent: distended, guarding, rebound, rigid, pulsatile mass Extremities exam: Present: normal inspection Back exam: Present: CVA tenderness (L) (And below left CVA) Psychiatric exam: Present: normal affect, normal mood Skin exam: Present: normal color Course Vital Signs 09/18/21 09/18/21 09/18/21 11:43 12:40 12:43 Temperature 98.1 F Pulse Rate 107 H Respiratory 18 Rate Blood Pressure 98/62 O2 Sat by Pulse 94 L 88 L 92 L Oximetry - Reevaluation(s) Reevaluation #1: 09/18/21 15:21 There is concern for sepsis diagnosed at 1520. Blood culture and lactic acid and IV antibiotics will be started. EKG Findings - EKG Comments: EKG Findings:: Sinus tachycardia 102. [place] 162. Rest 95. QT 310. QTC 368. Superior axis. Incomplete right bundle-branch block. No acute ST change. Medical Decision Making - Medical Decision Making Patient reevaluated and resting comfortably in bed. Patient and family updated on results and plan. Case discussed with Dr. Wiley, who will admit covering for Dr. Au. Blood thinners will be started. IV antibiotics will be started. - Lab Data Result diagrams: 09/18/21 12:37 09/18/21 12:37 Lab Results 0409/18/21 09/18/21 Range/Units 12:37 12:37 12:37 WBC 11.1 H (3.8-10.6) k/uL RBC 4.77 (4.30-5.90) m/uL Hgb 15.0 (13.0-17.5) gm/dL Hct 44.2 (39.0-53.0) % MCV 92.6 (80.0-100.0) fL MCH 31.5 (25.0-35.0) pg MCHC 34.0 (31.0-37.0) g/dL RDW 14.5 (11.5-15.5) % Plt Count 180 (150-450) k/uL MPV 7.2 Neutrophils % 85 % Lymphocytes % 7 % Monocytes % 7 % Eosinophils % 1 % Basophils % 0 % Neutrophils # 9.4 H (1.3-7.7) k/uL Lymphocytes # 0.7 L (1.0-4.8) k/uL Monocytes # 0.7 (0-1.0) k/uL Eosinophils # 0.1 (0-0.7) k/uL Basophils # 0.0 (0-0.2) k/uL PT 10.3 (9.0-12.0) sec INR 0.9 (<1.2) APTT 27.9 (22.0-30.0) sec Sodium 133 L (137-145) mmol/L Potassium 4.2 (3.5-5.1) mmol/L Chloride 100 (98-107) mmol/L Carbon Dioxide 25 (22-30) mmol/L Anion Gap 8 mmol/L BUN 12 (9-20) mg/dL Creatinine 0.72 (0.66-1.25) mg/dL Est GFR (CKD-EPI)AfAm >90 (>60 ml/min/1.73 sqM) Est GFR (CKD-EPI)NonAf >90 (>60 ml/min/1.73 sqM) Glucose 109 H (74-99) mg/dL Calcium 9.2 (8.4-10.2) mg/dL Total Bilirubin 1.4 H (0.2-1.3) mg/dL AST 20 (17-59) U/L ALT 9 (4-49) U/L Alkaline Phosphatase 37 L (38-126) U/L Total Protein 7.2 (6.3-8.2) g/dL Albumin 4.0 (3.5-5.0) g/dL Amylase 43 (30-110) U/L Lipase 28 (23-300) U/L Coronavirus (PCR) (Not Detectd) 09/18/21 Range/Units 12:37 WBC (3.8-10.6) k/uL RBC (4.30-5.90) m/uL Hgb (13.0-17.5) gm/dL Hct (39.0-53.0) % MCV (80.0-100.0) fL MCH (25.0-35.0) pg MCHC (31.0-37.0) g/dL RDW (11.5-15.5) % Plt Count (150-450) k/uL MPV Neutrophils % % Lymphocytes % % Monocytes % % Eosinophils % % Basophils % % Neutrophils # (1.3-7.7) k/uL Lymphocytes # (1.0-4.8) k/uL Monocytes # (0-1.0) k/uL Eosinophils # (0-0.7) k/uL Basophils # (0-0.2) k/uL PT (9.0-12.0) sec INR (<1.2) APTT (22.0-30.0) sec Sodium (137-145) mmol/L Potassium (3.5-5.1) mmol/L Chloride (98-107) mmol/L Carbon Dioxide (22-30) mmol/L Anion Gap mmol/L BUN (9-20) mg/dL Creatinine (0.66-1.25) mg/dL Est GFR (CKD-EPI)AfAm (>60 ml/min/1.73 sqM) Est GFR (CKD-EPI)NonAf (>60 ml/min/1.73 sqM) Glucose (74-99) mg/dL Calcium (8.4-10.2) mg/dL Total Bilirubin (0.2-1.3) mg/dL AST (17-59) U/L ALT (4-49) U/L Alkaline Phosphatase (38-126) U/L Total Protein (6.3-8.2) g/dL Albumin (3.5-5.0) g/dL Amylase (30-110) U/L Lipase (23-300) U/L Coronavirus (PCR) Not Detected (Not Detectd) - Radiology Data Radiology results: report reviewed (Computed tomography scan abdomen and pelvis reveals no acute abnormality. CT angios chest does show only emboli left lower lobe. Suspicious 1.5 cm speculated right lower lobe nodule with adjacent smaller nodule. Additional workup for new [place] recommended. Small left effusion. Atelectasis or) Critical Care Time Critical Care Time: Yes Total Critical Care Time: 33 Disposition Clinical Impression: Pulmonary embolus, Lung mass, Pneumonia, Sepsis Disposition: ADMITTED IP TO THIS [facility] Condition: Serious Is patient prescribed a controlled substance at d/c from ED?: No Referrals: Olu Au MD [Primary Care Provider] - 1-2 days Time of Disposition: 15:21
[2021-09-18 12:59] LABS: Basophils % (A) 0 %; Eosinophils # (A) 0.1 k/uL (0-0.7); Eosinophils % (A) 1 %; HCT 44.2 % (39.0-53.0); Lymphocytes # (A) 0.7 k/uL (1.0-4.8); Lymphocytes % (A) 7 %; MCH 31.5 pg (25.0-35.0); MCV 92.6 fL (80.0-100.0); Mean Platelet Volume 7.2; Monocytes # (A) 0.7 k/uL (0-1.0); Monocytes % (A) 7 %; Neutrophils # (A) 9.4 k/uL (1.3-7.7); Neutrophils % (A) 85 %; Platelet Count 180 k/uL (150-450); RBC 4.77 m/uL (4.30-5.90); RDW 14.5 % (11.5-15.5); WBC 11.1 k/uL (3.8-10.6)
[2021-09-18 13:02] LABS: ALT 9 U/L (4-49); AST 20 U/L (17-59); African American GFR (CKD) >90 (>60 ml/min/1.73 sqM); Alkaline Phosphatase 37 U/L (38-126); Amylase 43 U/L (30-110); Anion Gap 8 mmol/L; Blood Urea Nitrogen 12 mg/dL (9-20); Calcium 9.2 mg/dL (8.4-10.2); Carbon Dioxide 25 mmol/L (22-30); Chloride 100 mmol/L (98-107); Glucose 109 mg/dL (74-99); Lipase 28 U/L (23-300); Non-African American GFR(CKD) >90 (>60 ml/min/1.73 sqM); Potassium 4.2 mmol/L (3.5-5.1); Sodium 133 mmol/L (137-145); Total Bilirubin 1.4 mg/dL (0.2-1.3); Total Protein 7.2 g/dL (6.3-8.2)
[2021-09-18 13:05] LABS: INR 0.9 (<1.2); Partial Thromboplastin Time 27.9 sec (22.0-30.0); Prothrombin Time 10.3 sec (9.0-12.0)
--- NOTE | 2021-09-18 13:47 | CT ---
CT CHEST FOR PULMONARY EMBOLISM. EXAMINATION TYPE: CT angio chest DATE OF EXAM: 09/18/2021 INDICATION: Hemoptysis. CT DLP: 286.2 mGycm, Automated exposure control for dose reduction was used. CONTRAST: Patient injected with 100 mL of Isovue 370. COMPARISON: TECHNIQUE: CT of the chest is performed on a spiral scan at 2 mm thick sections. Study is performed with intravenous contrast timed for evaluation for pulmonary embolism. This will limit additional po rtions of the evaluation. 3-D MIP images reconstructed by the technologist are reviewed on the compu ter in the coronal and sagittal planes. FINDINGS: Filling defects are evident within left lower lobe pulmonary arteries. No mediastinal or hilar adenopathy enlarged by CT criteria is evident. The ascending aorta diameter at the level of the main pulmonary artery is 3.6 cm. The main pulmonary artery diameter at the bifur cation is 2.6 cm. Small left pleural effusion is present. There is a highly suspicious 1.5 cm spiculated density in the right lower lobe. Series 406 image 86. Additional adjacent nodule measures 1.0 cm. Series 406 image 90. Some mild infiltrate is through the left lower lobe. Some posterior infiltrate is present related atelectasis or pneumonia. Some mild dif fuse thickening of the esophagus may be present. Consider additional evaluation of the esophagus. Limited CT section through the upper abdomen are unremarkable. IMPRESSIONS: 1. Left lower lobe pulmonary emboli. 2. Suspicious 1.5 cm spiculated right lower lobe nodule with adjacent smaller 1.0 cm nodule. Addition al workup for neoplasm is recommended. 3. Small left pleural effusion. 4. Atelectasis or pneumonia may be at the left lung base. Follow-up is recommended. 5. Diffuse thickening to the mid and distal esophagus. Consider additional workup. Neoplasm not exclu ded.
--- NOTE | 2021-09-18 13:51 | CT ---
EXAMINATION TYPE: CT abdomen pelvis w con DATE OF EXAM: 09/18/2021 COMPARISON: 01/24/2020 INDICATION: Abdomen pain and flank pain DLP: 473.8 mGycm, Automated exposure control for dose reduction was used. CONTRAST: 100 mL of Isovue 370. Study performed without Oral Contrast TECHNIQUE: Axial images were obtained from above the diaphragm to the pubic rami in the axial plane a t 5 mm thick sections. Reconstructed images are reviewed on the computer in the coronal plane. FINDINGS: Limited CT sections are obtained the lung bases. There is a small left pleural effusion. Atelectasis or pneumonia may be at the left base. The 1 cm lung nodule in the right posterior lung is at the edg e of the [id number]. Please see CTA chest same date. Distal esophageal thickening remains present CT ABDOMEN: Liver: Normal Spleen: Normal Pancreas: Normal Adrenal glands: The adrenal glands are normal. Gallbladder: Normal Kidneys: No masses are evident. No hydronephrosis is present. No cysts are present. Delayed images were obtained through the kidneys, which remain unremarkable. Aorta: Vascular calcification is within the aorta. Inferior vena cava: Normal. CT PELVIS: There may be a small right fat-containing inguinal hernia extending towards the hemiscrotu m. Loops of bowel within the abdomen and pelvis are normal. The study is performed without oral cont rast limiting bowel evaluation. Appendix: Not identified. No dilated tubular structure or inflammatory changes evident. Urinary bladder: Normal. Genitourinary structures: Prostate appears somewhat prominent. Osseous structures: No suspicious lytic or sclerotic lesions. Degenerative disc changes are within th e lumbar spine. IMPRESSIONS: 1. Small left pleural effusion. Adjacent atelectasis or infiltrate at the lung base may be present. Right lower lobe nodule partially visualized. Thickening of the esophagus may be present. Please also see CTA chest report same date. 2. No suspicious acute changes within the CT abdomen and pelvis.
[2021-09-18] MEDS ORDERED: HEPARIN SODIUM 1,000 UN/ML (10ML VL) IV ONE (15:22)
[2021-09-18] MEDS ORDERED: HEPARIN SODIUM 1,000 UN/ML (10ML VL) IV PRN (15:22)
[2021-09-18] MEDS ORDERED: PNEUMONIA PROTOCOL UTILIZED 1 EACH MISC PO PRN (15:23)
[2021-09-18] MEDS ORDERED: IPRATROPIUM-ALBUTEROL 3 ML NEB INHALATION PRN ×2 (15:23→19:43)
[2021-09-18] MEDS ORDERED: AZITHROMYCIN 500 MG in SODIUM CHLORIDE 0.9% 250 ML IVPB STA (15:23)
[2021-09-18] MEDS ORDERED: SODIUM CHLORIDE 0.9% 1,000 ML IV SCH (15:30)
[2021-09-18] MEDS: HEPARIN SOD,PORK IN 0.45% NACL 25,000 UNIT in 0.45% NACL 1 250ML.BAG IV SCH (16:12)
[2021-09-18] MEDS ORDERED: methylPREDNISolone SOD SUCCI 125 MG/2 ML VIAL IV STA (17:39)
[2021-09-18] MEDS ORDERED: MORPHINE SULFATE 2 MG/ML SYRINGE IVP PRN (17:58)
[2021-09-18] MEDS: guaiFENesin-Coden 100-10MG/5ML 10 ML CUP PO PRN (18:21)
[2021-09-18] MEDS ORDERED: ALBUTEROL HFA INHALER INHALATION PRN (19:43)
[2021-09-18] MEDS ORDERED: traMADol 50 MG TAB PO PRN (19:43)
[2021-09-18] MEDS: ZOLPIDEM 5 MG TAB PO SCH (20:32)
[2021-09-18] MEDS: lisinopriL 20 MG TAB PO SCH (20:32)
--- NOTE | 2021-09-18 23:46 | P.HPIM ---
History of Present Illness H&P Date: 09/18/21 Chief Complaint: Back pain Patient is a 71-year-old male with a known history of COPD, hypertension, GERD, history of diverticulitis status post bowel resection in 2020, currently everyday smoker presents to ER with complaints of upper back pain and chest pain. Patient states that he was diagnosed with pneumonia and also CT was done at hospital in [place] which showed possible nodule/malignancy and was recommended to follow-up. Patient was seen by Dr. Au recently and was recommended PET scan which he is supposed to get next week. Patient did improve after antibiotic course but again started having pleuritic chest pain and upper back pain for the past few days. Patient is also having blood-tinged sputum. Patient was advised to go to ER. Otherwise patient denies any complaints of fever or chills. Patient does have shortness of breath and catching up breath with deep inspiration. Denies any leg swelling. No prior history of DVT in the past. CT angiogram of the chest showed left lower lobe pulmonary emboli. Suspicious 1.5 cm spiculated right lower lobe nodule with adjacent smaller 1.0 cm nodule. Additional work-up for neoplasm was recommended. Small left pleural effusion. Atelectasis or pneumonia may be left lung base. Diffuse thickening to the mid and distal esophagus consider additional work-up. CT of the abdomen pelvis showed small left pleural effusion. No suspicious acute changes within the CT abdomen pelvis. Laboratory data showed WBC 11.1 hemoglobin 15.0 and platelets 180 Sodium 133 potassium 4.2 chloride 100 bicarb is 25 BUN 12 and creatinine 0.72 lactic acid 1.3 bilirubin 1.4 AST 20 ALT 9 alk phos 37 lipase 28 and coronavirus PCR not detected. Review of Systems Constitutional: Patient denies any fever or chills . No generalized weakness. Patient does have weight loss. Abdomen: Patient denied nausea vomiting and diarrhea and abdominal pain. Cardiovascular: Patient does have pleuritic chest pain and shortness of breath. No palpitations. Respiratory: Patient does have cough with blood-tinged sputum. Shortness of breath. Neurologic: Patient denied any numbness or tingling headache. Musculoskeletal: Patient denies any complaints of joint swelling or deformity. Skin: Negative Psychiatric: Negative Endocrine: No heat or cold intolerance. No recent weight gain. Genitourinary: No dysuria or hematuria. All other 14 point ROS negative except the above Past Medical History Past Medical History: COPD, GERD/Reflux, Hypertension Additional Past Medical History / Comment(s): Having pain in rectum, hx hemorrhoids. Gout. Recent colonoscopy, found diverticulitis, anal stricture. History of Any Multi-Drug Resistant Organisms: None Reported Past Surgical History: Bowel Resection, Heart Catheterization Additional Past Surgical History / Comment(s): Hemorrhoid laser. Colonoscopies, last 01/21/20. Past Anesthesia/Blood Transfusion Reactions: No Reported Reaction Past Psychological History: No Psychological Hx Reported Smoking Status: Current every day smoker Past Alcohol Use History: Occasional Additional Past Alcohol Use History / Comment(s): Smoking since age 15, 1 ppd or so. Drinks 3-4 beers per day est. Past Drug Use History: None Reported - Past Family History Mother Family Medical History: No Reported History Medications and Allergies Home Medications Medication Instructions Recorded Confirmed Type Enalapril [Vasotec] 20 mg PO BID 01/21/20 09/18/21 History allopurinoL [Zyloprim] 100 mg PO DAILY 01/21/20 09/18/21 History Albuterol Sulfate [Proair Hfa] 2 puff INHALATION RT-Q6H PRN 09/18/21 09/18/21 History Tamsulosin [Flomax] 0.8 mg PO DAILY 09/18/21 09/18/21 History Zolpidem [Ambien] 5 mg PO HS 09/18/21 09/18/21 History traMADol HCL 50 mg PO Q4H PRN 09/18/21 09/18/21 History Allergies Allergy/AdvReac Type Severity Reaction Status Date / Time cephalexin [From Keflex] AdvReac dizzyness Verified 09/18/21 15:10 Physical Exam Vitals: Vital Signs Temp Pulse Pulse Resp BP BP Pulse Ox 09/18/21 21:02 98 09/18/21 20:00 88 18 09/18/21 19:57 98.4 F 88 18 125/62 94 L 09/18/21 18:00 99.3 F 77 18 160/97 90 L 09/18/21 17:08 99.3 F 92 18 162/73 91 L 09/18/21 16:19 85 18 119/63 97 09/18/21 16:14 87 09/18/21 16:04 85 09/18/21 12:43 92 L 09/18/21 12:40 88 L 09/18/21 11:43 98.1 F 107 H 18 98/62 94 L Intake and Output 09/18/21 09/18/21 09/18/21 06:59 14:59 22:59 Output Total 200 Balance -200 Output: Urine 200 Other: Weight 65.771 kg 65.771 kg PHYSICAL EXAMINATION: Patient is lying in the bed comfortably, no acute distress, awake alert and oriented.. HEENT: Normocephalic. Neck is supple. Pupils reactive. Nostrils clear. Oral cavity is moist. Neck reveals no JVD, carotid bruits, or thyromegaly. CHEST EXAMINATION: Trachea is central. Symmetrical expansion. Bilaterally diminished air entry and expiratory wheezing. CARDIAC: Normal S1, S2 with no gallops. No murmurs ABDOMEN: Soft. Bowel sounds normal. No organomegaly. No abdominal bruits. Extremities: reveal no edema. No clubbing or cyanosis Neurologically awake, alert, oriented x3 with well-coordinated movements. No focal deficits noted Skin: No rash or skin lesions. Psychiatric: Cooperative. Nonsuicidal Musculoskeletal: No joint swelling or deformity. Normal range of motion. Results CBC & Chem 7: 09/19/21 07:09 09/19/21 07:09 Labs: Abnormal Lab Results - Last 24 Hours (Table) 09/18/21 09/18/21 09/18/21 Range/Units 12:37 12:37 20:56 WBC 11.1 H (3.8-10.6) k/uL Neutrophils # 9.4 H (1.3-7.7) k/uL Lymphocytes # 0.7 L (1.0-4.8) k/uL APTT 54.0 H (22.0-30.0) sec Sodium 133 L (137-145) mmol/L Glucose 109 H (74-99) mg/dL Total Bilirubin 1.4 H (0.2-1.3) mg/dL Alkaline Phosphatase 37 L (38-126) U/L Thrombosis Risk Factor Assmnt - DVT/VTE Prophylaxis DVT/VTE Prophylaxis: Pharmacologic Prophylaxis ordered Assessment and Plan Assessment: Acute left lower lobe pulmonary emboli with pleuritic chest pain Suspicious 1.5 cm spiculated right lower lobe nodule with possible malignancy. Left lower lobe atelectasis/pneumonia Diffusely mid and distal esophagus thickening COPD exacerbation Ongoing nicotine addiction History of diverticulitis status post colon resection in 2019 GERD Hypertension DVT prophylaxis patient is already on heparin drip Plan: Patient will be continued on heparin drip and antibiotics ceftriaxone and azithromycin. Patient will be continued on duo nebs and IV Solu-Medrol dose was given. Continue with pain management with morphine IV 2 mg every 4 hourly. Pulmonary was consulted due to spiculated right lower lobe nodule. Patient is scheduled for PET scan as an outpatient next week. Continue to follow closely. Prognosis is guarded at this time. Time with Patient: Greater than 30
[2021-09-19 07:52] LABS: Basophils % (A) 0 %; Eosinophils # (A) 0.1 k/uL (0-0.7); Eosinophils % (A) 1 %; HCT 43.6 % (39.0-53.0); HGB 14.1 gm/dL (13.0-17.5); Lymphocytes # (A) 0.5 k/uL (1.0-4.8); Lymphocytes % (A) 5 %; MCH 30.6 pg (25.0-35.0); MCHC 32.3 g/dL (31.0-37.0); MCV 94.8 fL (80.0-100.0); Monocytes # (A) 0.4 k/uL (0-1.0); Monocytes % (A) 4 %; Neutrophils # (A) 9.7 k/uL (1.3-7.7); Neutrophils % (A) 91 %; Platelet Count 167 k/uL (150-450); RDW 13.7 % (11.5-15.5); WBC 10.7 k/uL (3.8-10.6)
[2021-09-19 08:00] LABS: African American GFR (CKD) >90 (>60 ml/min/1.73 sqM); Anion Gap 9 mmol/L; Blood Urea Nitrogen 13 mg/dL (9-20); Calcium 8.9 mg/dL (8.4-10.2); Carbon Dioxide 25 mmol/L (22-30); Chloride 101 mmol/L (98-107); Glucose 137 mg/dL (74-99); Non-African American GFR(CKD) >90 (>60 ml/min/1.73 sqM); Potassium 4.1 mmol/L (3.5-5.1); Sodium 135 mmol/L (137-145)
--- NOTE | 2021-09-19 08:39 | XR ---
EXAMINATION TYPE: XR chest 2V DATE OF EXAM: 09/19/2021 COMPARISON: 02/15/2020 INDICATION: Pneumonia TECHNIQUE: Frontal and lateral views of the chest are obtained. FINDINGS: The heart size is normal. The pulmonary vasculature is normal. Left basilar atelectasis is present. Some mild right lower lobe infiltrate may be present.. IMPRESSION: 1. Suggestion of bibasilar atelectasis. Pneumonia could be considered. Follow-up can be performed.
[2021-09-19] MEDS: allopurinoL 100 MG TAB PO SCH (09:04)
[2021-09-19] MEDS: TAMSULOSIN 0.4 MG CAP.ER.24H PO SCH (09:04)
[2021-09-19] MEDS: lisinopriL 20 MG TAB PO SCH ×2 (09:04→20:45)
[2021-09-19] MEDS: FAMOTIDINE 20 MG TAB PO SCH ×2 (09:04→20:44)
--- NOTE | 2021-09-19 10:42 | US ---
EXAMINATION TYPE: US venous doppler duplex LE DATE OF EXAM: 09/19/2021 10:26 AM COMPARISON: NONE CLINICAL HISTORY: role out DVT. Known PE SIDE PERFORMED: Bilateral TECHNIQUE: The lower extremity deep venous system is examined utilizing real time linear array sonog bret with graded compression, doppler sonography and color-flow sonography. VESSELS IMAGED: Common Femoral Vein Deep Femoral Vein Greater Saphenous Vein * Femoral Vein Popliteal Vein Small Saphenous Vein * Proximal Calf Veins (* superficial vessels) Right Leg: Negative for DVT Left Leg: Negative for DVT IMPRESSION: 1. Bilateral lower extremity ultrasound negative for deep venous thrombosis.
[2021-09-19] MEDS: HEPARIN SOD,PORK IN 0.45% NACL 25,000 UNIT in 0.45% NACL 1 250ML.BAG IV SCH (11:38)
[2021-09-19] MEDS: methylPREDNISolone SOD SUCCI 125 MG/2 ML VIAL IV SCH ×3 (11:38→23:26)
--- NOTE | 2021-09-19 11:52 | P.CNPUL ---
History of Present Illness Consult date: 09/19/21 History of present illness: 69-year-old male patient, a chronic smoker, with known history of COPD, who was in [place] and he had increased shortness of breath cough chest congestion and chest tightness and wheeze. He was seen in several clinics in [place] and he was given an antibiotic and steroid. At the same time, he was given a chest x- ray and a CAT scan of the chest and the patient was found to have a lesion in the right lower lobe and he was asked to follow-up with his primary care physician accordingly. He was being arranged undergo a PET scan on outpatient basis and the patient ultimately an upcoming to the hospital because of increased shortness of breath, chest pain, and some limited hemoptysis. In the ED, computed tomography scan of the chest was done that showed a 1.5 cm right lower lobe pulmonary nodule, spiculated, highly suspicious for malignancy. At the same time, there was left lower lobe filling defects consistent with pulmonary embolism. Noted the CAT scan of the chest also showed additional adjacent nodule measuring 1 cm in size in the right lower lobe. There was background emphysema. The patient was started on IV heparin. The Doppler of the lower extremity was completed and was negative for DVT. No previous history of DVTs or pulmonary embolism. No other new complaints otherwise for now. The patient is quite short of breath and bronchospastic and wheezy. No fever. No chills. The white cell cause of 10.7 with a hemoglobin of 14.1 and a platelet count of 167. Normal renal function with a creatinine of 0.5. COVID 19 testing is been negative. Review of Systems Constitutional: Denies chills, Denies fever Eyes: denies as per HPI, denies blurred vision, denies bulging eye, denies decreased vision, denies diplopia, denies discharge, denies dry eye, denies irritation, denies itching, denies pain, denies photophobia, denies loss of peripheral vision, denies loss of vision, denies tunnel vision/blind spots Cardiovascular: Reports as per HPI, Reports decreased exercise tolerance, Reports dyspnea on exertion, Reports shortness of breath Respiratory: Reports congestion, Reports dyspnea, Reports wheezing Gastrointestinal: Reports as per HPI Genitourinary: Reports as per HPI Musculoskeletal: Reports as per HPI Musculoskeletal: absent: ankle pain, ankle stiffness, ankle swelling Integumentary: Reports as per HPI Neurological: Reports as per HPI Endocrine: Reports as per HPI Hematologic/Lymphatic: Reports as per HPI Allergic/Immunologic: Reports as per HPI Past Medical History Past Medical History: COPD, GERD/Reflux, Hypertension, Prostate Disorder Additional Past Medical History / Comment(s): COPD, smoker, Having pain in rectum, hx hemorrhoids. Gout. Recent colonoscopy, found diverticulitis, anal stricture. History of Any Multi-Drug Resistant Organisms: None Reported Past Surgical History: Bowel Resection, Heart Catheterization Additional Past Surgical History / Comment(s): Hemorrhoid laser. Colonoscopies, last 01/21/20. Past Anesthesia/Blood Transfusion Reactions: No Reported Reaction Past Psychological History: No Psychological Hx Reported Smoking Status: Current every day smoker Past Alcohol Use History: Occasional Additional Past Alcohol Use History / Comment(s): Smoking since age 15, 1 ppd or so. Drinks 3-4 beers per day est. Past Drug Use History: None Reported - Past Family History Mother Family Medical History: No Reported History Medications and Allergies Home Medications Medication Instructions Recorded Confirmed Type Enalapril [Vasotec] 20 mg PO BID 01/21/20 09/18/21 History allopurinoL [Zyloprim] 100 mg PO DAILY 01/21/20 09/18/21 History Albuterol Sulfate [Proair Hfa] 2 puff INHALATION RT-Q6H PRN 09/18/21 09/18/21 History Tamsulosin [Flomax] 0.8 mg PO DAILY 09/18/21 09/18/21 History Zolpidem [Ambien] 5 mg PO HS 09/18/21 09/18/21 History traMADol HCL 50 mg PO Q4H PRN 09/18/21 09/18/21 History Allergies Allergy/AdvReac Type Severity Reaction Status Date / Time cephalexin [From Keflex] AdvReac dizzyness Verified 09/18/21 15:10 Physical Exam Vitals: Vital Signs Temp Pulse Pulse Resp BP BP Pulse Ox 09/19/21 09:03 98.1 F 86 18 105/66 90 L 09/19/21 04:00 98.0 F 78 18 129/72 95 09/19/21 02:00 73 16 09/19/21 00:00 73 16 93 L 09/18/21 21:02 98 09/18/21 20:00 88 18 04/30/22 19:57 98.4 F 88 18 125/62 94 L 09/18/21 18:00 99.3 F 77 18 160/97 90 L 09/18/21 17:08 99.3 F 92 18 162/73 91 L 09/18/21 16:19 85 18 119/63 97 09/18/21 16:14 87 09/18/21 16:04 85 09/18/21 12:43 92 L 09/18/21 12:40 88 L 09/18/21 11:43 98.1 F 107 H 18 98/62 94 L Intake and Output 09/18/21 09/19/21 09/19/21 22:59 06:59 14:59 Intake Total 60 Output Total 200 Balance -200 60 Intake: Oral 60 Output: Urine 200 Other: Weight 65.771 kg Gen. appearance, comfortable not in acute distress Head exam was generally normal. There was no scleral icterus or corneal arcus. Mucous membranes were moist. Neck was supple and without jugular venous distension, thyromegaly, or carotid bruits. Carotids were easily palpable bilaterally. There was no adenopathy. Lungs sounds are diminished and the patient is diffuse expiratory wheezes throughout the lung his bilaterally and the breath sounds are quite diminished in lung bases Cardiac exam revealed the PMI to be normally situated and sized. The rhythm was regular and no extrasystoles were noted during several minutes of auscultation. The first and second heart sounds were normal and physiologic splitting of the second heart sound was noted. There were no murmurs, rubs, clicks, or gallops. Abdominal exam revealed normal bowel sounds. The abdomen was soft, non-tender, and without masses, organomegaly, or appreciable enlargement of the abdominal aorta. Examination of the extremities revealed easily palpable radial, femoral and pedal pulses. There was no cyanosis, clubbing or edema. Examination of the skin revealed no evidence of significant rashes, suspicious appearing nevi or other concerning lesions. Neurologically, the patient is awake and alert and the patient does not have any focal neurological deficit. Cranial nerves are essentially intact. Results - Laboratory Findings CBC and BMP: 09/19/21 07:09 09/19/21 07:09 PT/INR, D-dimer PT 10.3 sec (9.0-12.0) 09/18/21 12:37 INR 0.9 (<1.2) 09/18/21 12:37 Abnormal lab findings: Abnormal Labs 09/18/21 09/18/21 09/18/21 12:37 12:37 20:56 WBC 11.1 H Neutrophils # 9.4 H Lymphocytes # 0.7 L APTT 54.0 H Sodium 133 L Creatinine Glucose 109 H Total Bilirubin 1.4 H Alkaline Phosphatase 37 L 09/19/21 09/19/21 09/19/21 07:09 07:09 07:09 WBC 10.7 H Neutrophils # 9.7 H Lymphocytes # 0.5 L APTT 39.9 H Sodium 135 L Creatinine 0.52 L Glucose 137 H Total Bilirubin Alkaline Phosphatase - Diagnostic Findings Chest x-ray: image reviewed Assessment and Plan Plan: 1 acute left lower lobe pulmonary embolism with obvious filling defects in left lower lobe pulmonary artery branches consistent with PE. No evidence of any DVT on the Doppler of lower extremity. Consider underlying hypercoagulability as th e patient has a spiculated right lung lesion highly suspicious for malignancy 2 right lower lobe pulmonary nodule, spiculated, measuring 1.5 cm in size with an adjacent smaller lesion measuring 1 cm in size. Findings highly suspicious for malignancy, likely primary bronchogenic carcinoma 3 acute COPD exacerbation. The patient has diffuse bilateral emphysematous changes bilaterally on the CAT scan of the chest and currently is exacerbating with signs of acute bronchospasm and wheeze 4 history of smoking 5 BPH 6 gout 7 hypertension Plan Immediate smoking cessation Optimize COPD with a combination of DuoNeb nebulized treatment [id number], IV Solu Medrol and the patient is also covered with empiric antibiotics with Rocephin and Zithromax Continue with IV heparin and transitioned this patient to new agent oral anticoagulants with the next 24 hours. Regarding the right lung spiculated nodule, the patient will need a outpatient PET scan and follow-up with pulmonary. A final decision whether surgical resection versus transbronchial biopsies will be made based on the results of the PET scan that needs to be done on outpatient basis. Furthermore, the patient is to be optimize regarding his COPD and treated for his pulmonary embolism for few weeks at least prior to having any further intervention regarding his right lower lobe pulmonary nodules. He was made aware of those. We will obtain echocardiogram. We'll continue to follow.
[2021-09-19] MEDS: AZITHROMYCIN 500 MG TAB PO SCH (16:17)
[2021-09-19] MEDS: guaiFENesin-Coden 100-10MG/5ML 10 ML CUP PO PRN ×2 (16:17→23:33)
--- NOTE | 2021-09-19 20:40 | P.PN ---
Subjective Progress Note Date: 09/19/21 Patient is a 71-year-old male with a known history of COPD, hypertension, GERD, history of diverticulitis status post bowel resection in 2019, currently everyday smoker presents to ER with complaints of upper back pain and chest pain. Patient states that he was diagnosed with pneumonia and also CT was done at [facility] [address] in [place] which showed possible nodule/malignancy and was recommended to follow-up. Patient was seen by Dr. Au recently and was recommended PET scan which he is supposed to get next week. Patient did improve after antibiotic course but again started having pleuritic chest pain and upper back pain for the past few days. Patient is also having blood-tinged sputum. Patient was advised to go to ER. Otherwise patient denies any complaints of fever or chills. Patient does have shortness of breath and catching up breath with deep inspiration. Denies any leg swelling. No prior history of DVT in the past. CT angiogram of the chest showed left lower lobe pulmonary emboli. Suspicious 1.5 cm spiculated right lower lobe nodule with adjacent smaller 1.0 cm nodule. Additional work-up for neoplasm was recommended. Small left pleural effusion. Atelectasis or pneumonia may be left lung base. Diffuse thickening to the mid and distal esophagus consider additional work-up. CT of the abdomen pelvis showed small left pleural effusion. No suspicious acute changes within the CT abdomen pelvis. Laboratory data showed WBC 11.1 hemoglobin 15.0 and platelets 180 Sodium 133 potassium 4.2 chloride 100 bicarb is 25 BUN 12 and creatinine 0.72 lactic acid 1.3 bilirubin 1.4 AST 20 ALT 9 alk phos 37 lipase 28 and coronavirus PCR not detected. 09/19/2021 Patient is currently sitting in the bed. Awake alert and oriented x3. Pleuritic chest pain did improve. Still having cough and diminished air entry bilaterally on exam. No complaints of fever or chills. Blood cultures and s putum cultures are pending. Laboratory data showed WBC 10.7 hemoglobin 14.1 platelets 167 sodium 135 potassium 4.1 chloride 101 bicarb is 25 BUN 39 creatinine 0.52 and calcium 8.9 Chest x-ray showed suggestion of bibasilar atelectasis. Pneumonia could be considered. Follow-up recommended. Patient is being current antibiotics ceftriaxone azithromycin and duo nebs and IV Solu-Medrol. Patient is on IV heparin for acute pulmonary embolism Current medications reviewed. Objective - Vital Signs Vital signs: Vital Signs Temp 97.8 F 09/19/21 16:18 Pulse 72 09/19/21 16:18 Resp 18 09/19/21 16:18 BP 110/62 09/19/21 16:18 Pulse Ox 92 L 09/19/21 16:18 Intake & Output 09/19/21 09/19/21 09/20/21 06:59 18:59 06:59 Intake Total 290.071 Output Total 200 500 Balance -200 -209.929 Intake: Intake, IV Titration 230.071 Amount Heparin Sod,Pork in 0.45% 230.071 NaCl 25,000 unit In 0.45 % NaCl 1 250ml.bag @ 18 UNITS/KG/HR 11.839 mls/hr IV .Q21H7M [facility] Rx#: [id number] Oral 60 Output: Urine 200 500 Other: Voiding Method Urinal - Exam PHYSICAL EXAMINATION: Patient is lying in the bed comfortably, no acute distress, awake alert and oriented.. HEENT: Normocephalic. Neck is supple. Pupils reactive. Nostrils clear. Oral cavity is moist. Neck reveals no JVD, carotid bruits, or thyromegaly. CHEST EXAMINATION: Trachea is central. Symmetrical expansion. Bilaterally diminished air entry and expiratory wheezing. CARDIAC: Normal S1, S2 with no gallops. No murmurs ABDOMEN: Soft. Bowel sounds normal. No organomegaly. No abdominal bruits. Extremities: reveal no edema. No clubbing or cyanosis Neurologically awake, alert, oriented x3 with well-coordinated movements. No fo vicente deficits noted Skin: No rash or skin lesions. Psychiatric: Cooperative. Nonsuicidal Musculoskeletal: No joint swelling or deformity. Normal range of motion. - Labs CBC & Chem 7: 09/19/21 07:09 09/19/21 07:09 Labs: Abnormal Lab Results - Last 24 Hours (Table) 09/18/21 09/19/21 09/19/21 Range/Units 20:56 07:09 07:09 WBC 10.7 H (3.8-10.6) k/uL Neutrophils # 9.7 H (1.3-7.7) k/uL Lymphocytes # 0.5 L (1.0-4.8) k/uL APTT 54.0 H 39.9 H (22.0-30.0) sec Sodium (137-145) mmol/L Creatinine (0.66-1.25) mg/dL Glucose (74-99) mg/dL 09/19/21 Range/Units 07:09 WBC (3.8-10.6) k/uL Neutrophils # (1.3-7.7) k/uL Lymphocytes # (1.0-4.8) k/uL APTT (22.0-30.0) sec Sodium 135 L (137-145) mmol/L Creatinine 0.52 L (0.66-1.25) mg/dL Glucose 137 H (74-99) mg/dL Microbiology - Last 24 Hours (Table) 09/18/21 16:05 Blood Culture - Preliminary Blood No Growth after 24 hours 09/18/21 15:50 Blood Culture - Preliminary Blood No Growth after 24 hours 09/18/21 21:01 Sputum Culture - Preliminary Sputum Assessment and Plan Assessment: Acute left lower lobe pulmonary emboli with pleuritic chest pain. likely related underlying malignancy Suspicious 1.5 cm spiculated right lower lobe nodule with possible malignancy COPD exacerbation Left lower lobe atelectasis/pneumonia Diffusely mid and distal esophagus thickening Ongoing nicotine addiction History of diverticulitis status post colon resection in 2019 GERD Hypertension DVT prophylaxis patient is already on heparin drip Plan: Patient will be continued on heparin drip and antibiotics ceftriaxone and azithromycin.Patient will be continued on IV heparin. Patient will be continued on duo nebs and IV Solu-Medrol dose was given. Continue with pain management with morphine IV 2 mg every 4 hourly. Pulmonary was consulted due to spiculated right lower lobe nodule. Patient is scheduled for PET scan as an outpatient next week. Continue to follow closely. Prognosis is guarded at this time. Time with Patient: Greater than 30
[2021-09-19] MEDS: ZOLPIDEM 5 MG TAB PO SCH (20:44)
[2021-09-20] MEDS: methylPREDNISolone SOD SUCCI 125 MG/2 ML VIAL IV SCH ×4 (05:17→23:10)
[2021-09-20] MEDS: HEPARIN SOD,PORK IN 0.45% NACL 25,000 UNIT in 0.45% NACL 1 250ML.BAG IV SCH ×2 (05:46→21:15)
[2021-09-20] MEDS: lisinopriL 20 MG TAB PO SCH ×2 (08:14→17:50)
[2021-09-20] MEDS: allopurinoL 100 MG TAB PO SCH (08:14)
[2021-09-20] MEDS: FAMOTIDINE 20 MG TAB PO SCH ×2 (08:14→17:51)
[2021-09-20] MEDS: TAMSULOSIN 0.4 MG CAP.ER.24H PO SCH (08:14)
--- NOTE | 2021-09-20 08:34 | P.PN ---
Subjective Principal diagnosis: Pneumonia and PE and pulmonary nodule This is a continue progress note on a 71-year-old white male with known history of COPD area he was in [place] and had CAT scan which showed 1.5 cm nodule. PET scan was ordered but he has now developed shortness breath pneumonia and acute pulmonary embolus. Objective - Vital Signs Vital signs: Vital Signs Temp 97.9 F 09/19/21 23:24 Pulse 64 09/20/21 03:52 Resp 18 09/20/21 03:52 BP 114/59 09/20/21 03:52 Pulse Ox 94 L 09/20/21 03:52 Intake & Output 09/19/21 09/20/21 09/20/21 18:59 06:59 18:59 Intake Total 290.071 222.987 Output Total 500 500 Balance -209.929 -277.013 Intake: Intake, IV Titration 230.071 222.987 Amount Heparin Sod,Pork in 0.45% 230.071 222.987 NaCl 25,000 unit In 0.45 % NaCl 1 250ml.bag @ 18 UNITS/KG/HR 11.839 mls/hr IV .Q21H7M [facility] Rx#: [id number] Oral 60 Output: Urine 500 500 Other: Voiding Method Urinal Urinal - Constitutional General appearance: Present: average body habitus - EENT Eyes: Absent: abnormal pupil - Neck Neck: Absent: lymphadenopathy - Respiratory Respiratory: bilateral: diminished - Cardiovascular Rhythm: regular Heart sounds: normal: S1, S2 Abnormal Heart Sounds: Absent: S3 Gallop - Gastrointestinal General gastrointestinal: Present: soft. Absent: tenderness - Integumentary Integumentary: Present: normal - Labs CBC & Chem 7: 09/19/21 07:09 09/19/21 07:09 Labs: Abnormal Lab Results - Last 24 Hours (Table) 09/19/21 Range/Units 20:49 APTT 37.5 H (22.0-30.0) sec Microbiology - Last 24 Hours (Table) 09/18/21 21:01 Gram Stain - Preliminary Sputum Sputum Culture - Preliminary 09/18/21 16:05 Blood Culture - Preliminary Blood No Growth after 24 hours 09/18/21 15:50 Blood Culture - Preliminary Blood No Growth after 24 hours Assessment and Plan (1) Lung mass Current Visit: Yes Status: Acute Code(s): R91.8 - OTHER NONSPECIFIC ABNORMAL FINDING OF LUNG FIELD SNOMED Code(s): 192929750 (2) Pneumonia Current Visit: Yes Status: Acute Code(s): J18.9 - PNEUMONIA, UNSPECIFIED ORGANISM SNOMED Code(s): 820604713 (3) Pulmonary embolus Current Visit: Yes Status: Acute Code(s): I26.99 - OTHER PULMONARY EMBOLISM WITHOUT ACUTE COR PULMONALE SNOMED Code(s): 05976940 (4) COPD (chronic obstructive pulmonary disease) Current Visit: No Status: Acute Code(s): J44.9 - CHRONIC OBSTRUCTIVE PULMONA RY DISEASE, UNSPECIFIED SNOMED Code(s): 55716529 (5) HTN (hypertension) Current Visit: No Status: Acute Code(s): I10 - ESSENTIAL (PRIMARY) HYPERTENSION SNOMED Code(s): 74856719 Plan: Appreciate pulmonary input. We'll continue to follow. Prognosis is guarded secondary to his multiple comorbidities. Still with COPD status. New pack check CBC and CMP in
[2021-09-20 09:25] LABS: Basophils % (A) 0 %; Eosinophils % (A) 0 %; HGB 13.4 gm/dL (13.0-17.5); Lymphocytes # (A) 0.4 k/uL (1.0-4.8); Lymphocytes % (A) 4 %; MCH 30.5 pg (25.0-35.0); MCHC 31.9 g/dL (31.0-37.0); MCV 95.7 fL (80.0-100.0); Mean Platelet Volume 7.3; Monocytes # (A) 0.4 k/uL (0-1.0); Monocytes % (A) 4 %; Neutrophils # (A) 9.3 k/uL (1.3-7.7); Neutrophils % (A) 92 %; Platelet Count 187 k/uL (150-450); RBC 4.39 m/uL (4.30-5.90); RDW 14.3 % (11.5-15.5); WBC 10.1 k/uL (3.8-10.6)
[2021-09-20 09:48] LABS: African American GFR (CKD) >90 (>60 ml/min/1.73 sqM); Anion Gap 7 mmol/L; Blood Urea Nitrogen 15 mg/dL (9-20); Carbon Dioxide 26 mmol/L (22-30); Chloride 105 mmol/L (98-107); Glucose 143 mg/dL (74-99); Non-African American GFR(CKD) >90 (>60 ml/min/1.73 sqM); Potassium 4.1 mmol/L (3.5-5.1); Sodium 138 mmol/L (137-145)
[2021-09-20 11:33] VITALS: RESP 18
--- NOTE | 2021-09-20 13:07 | P.GSCN ---
History of Present Illness Consult date: 09/20/21 History of present illness: CHIEF COMPLAINT: Shortness of breath HISTORY OF PRESENT ILLNESS: This is a 71-year-old male who presented to the hospital with complaints of shortness of breath and cough. Patient has been undergoing workup for a right lung nodule. He did have an episode of hemoptysis. He was found have evidence of a pulmonary embolus is currently on IV heparin. He is also being treated for COPD exacerbation. Pulmonary following closely there is concerns of lung malignancy in regards to that lung nodule. He is a smoker. Patient is scheduled for PET scan on Monday outpatient. Surgical service has been consulted in regards to thickening of the esophagus that was noted on CAT scan. Patient does report that he is noticing a sticking sensation with swallowing foods such as chicken or bread. He reports that it's very mild he drinks some water and it relieves the sensation. He denies any abdominal pain. Denies any nausea or vomiting. He's had no previous EGD completed. Patient is currently on room air. PAST MEDICAL HISTORY: COPD, GERD/Reflux, Hypertension, diverticulitis PAST SURGICAL HISTORY: Lower anterior resection due to diverticulitis with incidental appendectomy MEDICATIONS: See list. ALLERGIES: See list. SOCIAL HISTORY: No illicit drug use. Nicotine dependence REVIEW OF SYSTEMS: CONSTITUTIONAL: Denies fever or chills. HEENT: Denies blurred vision, vision changes, or eye pain. Denies hemoptysis CARDIOVASCULAR: Denies chest pain or pressure. RESPIRATORY: No shortness of breath. GASTROINTESTINAL: See HPI for pertinent findings HEMATOLOGIC: Denies bleeding disorders. GENITOURINARY: Denies any blood in urine or increased urinary frequency. SKIN: Denies pruitis. Denies rash. PHYSICAL EXAM: VITAL SIGNS: Reviewed GENERAL: Well-developed in no acute distress. HEENT: No sclera icterus. Extraocular movements grossly intact. Moist buccal mucosa. Head is atraumatic, normocephalic. No nasal drainage. ABDOMEN: Soft. Nondistended. Nontender NEUROLOGIC: Alert and oriented. Cranial nerves II through XII grossly intact. LABORATORY DATA: WBC is 10.1 hemoglobin 13.4 platelets 187 Sodium 1:30 potassium 4.1 creatinine 0.53 IMAGING: CT of chest left lower lobe pulmonary emboli. Suspicious 1.5 cm speculated right lower lobe nodule with adjacent smaller 1.0 cm nodule. Small left pleural effusion. Atelectasis or pneumonia and may be at the left lung base. Diffuse thickening to the mid and distal esophagus. Consider additional workup. Neoplasm not excluded. Computed tomography scan abdomen and pelvis small left pleural effusion. Adjacent atelectasis or infiltrate at the lung bases may be present. Right lower lobe nodule partially visualized. Thickening of the esophagus may be present. Please refer to CT chest. No suspicious acute changes within the CT abdomen and pelvis Venous Doppler bilateral lower extremities negative for DVT ASSESSMENT: 1. Thickening to the mid and distal esophagus noted on CAT scan 2. Mild dysphagia 3. Left pulmonary emboli 4. Right pulmonary nodule with concerns of malignancy. Followed by pulmonary service 5. Nicotine dependence PLAN: -Patient scheduled for EGD tomorrow, 09/21/[address] manrique -Keep patient nothing by mouth after midnight -Hold IV heparin starting at 8 AM tomorrow morning -Continue supportive care Thank you for this consultation Physician Research Fellow note has been reviewed by physician. Signing provider agrees with the documented findings, assessment, and plan of care. Past Medical History Past Medical History: COPD, GERD/Reflux, Hypertension Additional Past Medical History / Comment(s): Having pain in rectum, hx hemorrhoids. Gout. Recent colonoscopy, found diverticulitis, anal stricture. History of Any Multi-Drug Resistant Organisms: None Reported Past Surgical History: Bowel Resection, Heart Catheterization Additional Past Surgical History / Comment(s): Hemorrhoid laser. Colonoscopies, last 01/21/20. Past Anesthesia/Blood Transfusion Reactions: No Reported Reaction Past Psychological History: No Psychological Hx Reported Smoking Status: Current every day smoker Past Alcohol Use History: Occasional Additional Past Alcohol Use History / Comment(s): Smoking since age 15, 1 ppd or so. Drinks 3-4 beers per day est. Past Drug Use History: None Reported - Past Family History Mother Family Medical History: No Reported History Medications and Allergies Home Medications Medication Instructions Recorded Confirmed Type Enalapril [Vasotec] 20 mg PO BID 01/21/20 09/18/21 History allopurinoL [Zyloprim] 100 mg PO DAILY 01/21/20 09/18/21 History Albuterol Sulfate [Proair Hfa] 2 puff INHALATION RT-Q6H PRN 09/18/21 09/18/21 History Tamsulosin [Flomax] 0.8 mg PO DAILY 09/18/21 09/18/21 History Zolpidem [Ambien] 5 mg PO HS 09/18/21 09/18/21 History traMADol HCL 50 mg PO Q4H PRN 09/18/21 09/18/21 History Allergies Allergy/AdvReac Type Severity Reaction Status Date / Time cephalexin [From Keflex] AdvReac dizzyness Verified 09/18/21 15:10 Surgical - Exam Vital Signs Temp Pulse Resp BP Pulse Ox 98.1 F 107 H 18 98/62 94 L 09/18/21 11:43 09/18/21 11:43 09/18/21 11:43 09/18/21 11:43 09/18/21 11:43 Results - Labs 09/20/21 08:53 09/20/21 08:53 Abnormal Lab Results - Last 24 Hours (Table) 09/19/21 09/20/21 09/20/21 Range/Units 20:49 08:53 08:53 Neutrophils # 9.3 H (1.3-7.7) k/uL Lymphocytes # 0.4 L (1.0-4.8) k/uL APTT 37.5 H (22.0-30.0) sec Creatinine 0.53 L (0.66-1.25) mg/dL Glucose 143 H (74-99) mg/dL 09/20/21 Range/Units 08:53 Neutrophils # (1.3-7.7) k/uL Lymphocytes # (1.0-4.8) k/uL APTT 50.6 H (22.0-30.0) sec Creatinine (0.66-1.25) mg/dL Glucose (74-99) mg/dL Microbiology - Last 24 Hours (Table) 09/18/21 21:01 Gram Stain - Preliminary Sputum Sputum Culture - Preliminary 09/18/21 16:05 Blood Culture - Preliminary Blood No Growth after 24 hours 09/18/21 15:50 Blood Culture - Preliminary Blood No Growth after 24 hours Diabetes panel 09/20/21 Range/Units 08:53 Sodium 138 (137-145) mmol/L Potassium 4.1 (3.5-5.1) mmol/L Chloride 105 (98-107) mmol/L Carbon Dioxide 26 (22-30) mmol/L BUN 15 (9-20) mg/dL Creatinine 0.53 L (0.66-1.25) mg/dL Glucose 143 H (74-99) mg/dL Calcium 9.0 (8.4-10.2) mg/dL Calcium panel 09/20/21 Range/Units 08:53 Calcium 9.0 (8.4-10.2) mg/dL Pituitary panel 09/20/21 Range/Units 08:53 Sodium 138 (137-145) mmol/L Potassium 4.1 (3.5-5.1) mmol/L Chloride 105 (98-107) mmol/L Carbon Dioxide 26 (22-30) mmol/L BUN 15 (9-20) mg/dL Creatinine 0.53 L (0.66-1.25) mg/dL Glucose 143 H (74-99) mg/dL Calcium 9.0 (8.4-10.2) mg/dL Adrenal panel 09/20/21 Range/Units 08:53 Sodium 138 (137-145) mmol/L Potassium 4.1 (3.5-5.1) mmol/L Chloride 105 (98-107) mmol/L Carbon Dioxide 26 (22-30) mmol/L BUN 15 (9-20) mg/dL Creatinine 0.53 L (0.66-1.25) mg/dL Glucose 143 H (74-99) mg/dL Calcium 9.0 (8.4-10.2) mg/dL
--- NOTE | 2021-09-20 13:25 | P.PN ---
Subjective Progress Note Date: 09/20/21 Principal diagnosis: Acute pulmonary embolism and right lower lobe nodule, suspicious 69-year-old male patient, a chronic smoker, with known history of COPD, who was in [place] and he had increased shortness of breath cough chest congestion and chest tightness and wheeze. He was seen in several clinics in [place] and he was given an antibiotic and steroid. At the same time, he was given a chest x- ray and a CAT scan of the chest and the patient was found to have a lesion in the right lower lobe and he was asked to follow-up with his primary care physician accordingly. He was being arranged undergo a PET scan on outpatient basis and the patient ultimately an upcoming to the hospital because of increased shortness of breath, chest pain, and some limited hemoptysis. In the ED, computed tomography scan of the chest was done that showed a 1.5 cm right lower lobe pulmonary nodule, spiculated, highly suspicious for malignancy. At the same time, there was left lower lobe filling defects consistent with pulmonary embolism. Noted the CAT scan of the chest also showed additional adjacent nodule measuring 1 cm in size in the right lower lobe. There was background emphysema. The patient was started on IV heparin. The Doppler of the lower extremity was completed and was negative for DVT. No previous history of DVTs or pulmonary embolism. No other new complaints otherwise for now. The patient is quite short of breath and bronchospastic and wheezy. No fever. No chills. The white cell cause of 10.7 with a hemoglobin of 14.1 and a platelet count of 167. Normal renal function with a creatinine of 0.5. COVID 19 testing is been negative. Reevaluated today on 09/20/21, patient remains on the regular medical floor, feeling better, breathing easier, however I reviewed the CT of the chest, reviewed the workup since admission, and I believe the patient should be evaluated for dysphagia and abnormal thickening of the esophagus as we may be dealing with an underlying esophageal malignancy. His PET scan is scheduled to be done Monday, however I believe the patient could have his EGD tomorrow, could be considered for discharge home on eliquis, could keep the PET scan as scheduled on Monday, and I would likely clear the patient to be discharged home on antibiotics empirically as well as eliquis. And he should definitely have a PET scan on Monday. As we may be dealing with underlying malignancy. I consulted Dr. Tiwariania reevaluate the patient for possible EGD and rule out esophageal malignancy. Objective - Vital Signs Vital signs: Vital Signs Temp 98.1 F 09/20/21 11:32 Pulse 81 09/20/21 11:32 Resp 18 09/20/21 11:32 BP 122/66 09/20/21 11:32 Pulse Ox 90 L 09/20/21 11:32 Intake & Output 09/19/21 09/20/21 09/20/21 18:59 06:59 18:59 Intake Total 290.071 222.987 67.524 Output Total 500 500 Balance -209.929 -277.013 67.524 Intake: Intake, IV Titration 230.071 222.987 67.524 Amount Heparin Sod,Pork in 0.45% 230.071 222.987 67.524 NaCl 25,000 unit In 0.45 % NaCl 1 250ml.bag @ 18 UNITS/KG/HR 11.839 mls/hr IV .Q21H7M [facility] Rx#: [id number] Oral 60 Output: Urine 500 500 Other: Voiding Method Urinal Urinal Urinal - Exam Physical Exam: Revealed 71-year-old white male in no distress. Head: Atraumatic, normocephalic. HEENT:[Neck is supple.] [No neck masses.] [No thyromegaly.] [No JVD.] Chest: [Diminished breath sounds at the bases no rhonchi crackles or wheezes Cardiac Exam: [Normal S1 and S2, no S3 gallop, no murmur.] Abdomen: [Soft, nontender, no megaly, no rebound, no guarding, normal bowel sounds.] Extremities: [No clubbing, no edema, no cyanosis.] Neurological Exam: [No focal neurologic deficit.] Alert oriented 3. Psychiatric: Normal mood, affect and normal mental status examination. Skin: No rashes. - Labs CBC & Chem 7: 09/20/21 08:53 09/20/21 08:53 Labs: Abnormal Lab Results - Last 24 Hours (Table) 09/19/21 09/20/21 09/20/21 Range/Units 20:49 08:53 08:53 Neutrophils # 9.3 H (1.3-7.7) k/uL Lymphocytes # 0.4 L (1.0-4.8) k/uL APTT 37.5 H (22.0-30.0) sec Creatinine 0.53 L (0.66-1.25) mg/dL Glucose 143 H (74-99) mg/dL 09/20/21 Range/Units 08:53 Neutrophils # (1.3-7.7) k/uL Lymphocytes # (1.0-4.8) k/uL APTT 50.6 H (22.0-30.0) sec Creatinine (0.66-1.25) mg/dL Glucose (74-99) mg/dL Microbiology - Last 24 Hours (Table) 09/18/21 21:01 Gram Stain - Preliminary Sputum Sputum Culture - Preliminary 09/18/21 16:05 Blood Culture - Preliminary Blood No Growth after 24 hours 09/18/21 15:50 Blood Culture - Preliminary Blood No Growth after 24 hours Assessment and Plan Assessment: Impression: Acute left lower lobe pulmonary embolism Spiculated nodule in the left lower lobe, suspicious for malignancy. Acute exacerbation of COPD Possible community acquired pneumonia Tobacco dependence syndrome History of gout Benign essential hypertension Recommendation: Continue treatment for his underlying COPD Continue antibiotics/Rocephin and Zithromax. Continue heparin however will hold the heparin if EGD is to be done tomorrow. Transition patient tomorrow to eliquis and plan to discharge home on eliquis as well as oral antibiotics. And bronchodilators. Keep appointment for the PET scan as scheduled on Monday. Follow-up with Dr. Green postdischarge, may require outpatient bronchoscopy in the near future. We will continue to follow Time with Patient: Less than 30
[2021-09-20] MEDS: AZITHROMYCIN 500 MG TAB PO SCH (17:40)
[2021-09-20] MEDS: ZOLPIDEM 5 MG TAB PO SCH (17:50)
[2021-09-20] MEDS: guaiFENesin-Coden 100-10MG/5ML 10 ML CUP PO PRN (21:17)
[2021-09-21] MEDS: methylPREDNISolone SOD SUCCI 125 MG/2 ML VIAL IV SCH ×3 (06:12→16:45)
--- NOTE | 2021-09-21 07:07 | CA ---
Transthoracic Echo Report Name: Jesus Turner Age: 71 Gender: M : 1950 Exam Date: 09/20/2021 08:21 Exam Location: [facility] Ht (in): 68 Wt (lb): 145 Ordering Physician: Eduar Green MD Attending/Referring Phys: Wellness Consultant Melisa Jerez RDCS Procedure CPT: Indications: rule out pulm HTN Cardiac Hx: Technical Quality: Technically difficult study Contrast 1: Lumason Total Dose (mL): 4 Contrast 2: Total Dose (mL): MEASUREMENTS (Male / Female) Normal Values 2D ECHO LV Diastolic Diameter PLAX 4.2 cm 4.2 - 5.9 / 3.9 - 5.3 cm LV Systolic Diameter PLAX 2.0 cm IVS Diastolic Thickness 1.0 cm 0.6 - 1.0 / 0.6 - 0.9 cm LVPW Diastolic Thickness 1.1 cm 0.6 - 1.0 / 0.6 - 0.9 cm LV Relative Wall Thickness 0.5 RV Internal Dim ED PLAX 3.5 cm LA Volume 40.9 cm??? 18 - 58 / 22 - 52 cm??? M-MODE Aortic Root Diameter MM 3.2 cm LA Systolic Diameter MM 3.5 cm LA Ao Ratio MM 1.1 AV Cusp Separation MM 1.5 cm DOPPLER AV Peak Velocity 126.1 cm/s AV Peak Gradient 6.4 mmHg MV Area PHT 4.3 cm??? Mitral E Point Velocity 76.8 cm/s Mitral A Point Velocity 102.4 cm/s Mitral E to A Ratio 0.7 MV Deceleration Time 177.3 ms TR Peak Velocity 320.2 cm/s TR Peak Gradient 41.0 mmHg Right Ventricular Systolic Press 46.0 mmHg FINDINGS Left Ventricle Normal Left ventricular size, wall thickness, systolic function with no obvious regional wall motion abnormalities. Normal Left ventricular diastolic filling pattern. Left ventricular ejection fraction is estimated at 55-60 %. Right Ventricle Mild right ventricular dilatation. Mild to Moderate pulmonary hypertension. Right Atrium Normal right atrial size. Left Atrium Normal left atrial size. No evidence for an atrial septal defect. Mitral Valve No mitral stenosis. Trace to mild mitral regurgitation. Aortic Valve Diffuse thickening (sclerosis) of the aortic valve cusps without reduced excursion. No aortic valve stenosis or regurgitation. Tricuspid Valve [id number] tricuspid regurgitation. Pulmonic Valve No pulmonic regurgitation. No pulmonic stenosis. Pericardium Normal pericardium. Aorta Aortic root and proximal ascending aorta not well visualized. CONCLUSIONS Preserved LV systolic function Previewed by: Dr. Wing England MD (Electronically Signed) Final Date: 21 Sep 2021 07:06
--- NOTE | 2021-09-21 08:29 | P.PN ---
Subjective Principal diagnosis: Pneumonia and PE and pulmonary nodule This is a continue progress note on a 71-year-old white male with known history of COPD area he was in [place] and had CAT scan which showed 1.5 cm nodule. PET scan was ordered but he has now developed shortness breath pneumonia and acute pulmonary embolus. . EGD is pending for today. PET scan is noted for Monday. The patient has some mild insomnia. Objective - Vital Signs Vital signs: Vital Signs Temp 98 F 09/20/21 20:00 Pulse 60 09/21/21 03:15 Resp 18 09/21/21 03:15 BP 131/69 09/21/21 03:15 Pulse Ox 96 09/21/21 03:15 Intake & Output 09/20/21 09/21/21 09/21/21 18:59 06:59 18:59 Intake Total 357.524 136.144 Balance 357.524 136.144 Intake: IV 240 .9@ 20 240 Intake, IV Titration 117.524 136.144 Amount Heparin Sod,Pork in 0.45% 67.524 136.144 NaCl 25,000 unit In 0.45 % NaCl 1 250ml.bag @ 18 UNITS/KG/HR 11.839 mls/hr IV .Q21H7M [facility] Rx#: [id number] cefTRIAXone 2 gm In 50 Sodium Chloride 0.9% 50 ml @ 100 mls/hr IVPB Q24HR [facility] Rx#:[id number] Other: Voiding Method Urinal Urinal # Voids 2 1 # Bowel Movements 1 - Constitutional General appearance: Present: average body habitus, cooperative. Absent: disheveled - Neck Neck: Absent: lymphadenopathy - Respiratory Respiratory: bilateral: CTA - Cardiovascular Rhythm: regular Heart sounds: normal: S1, S2 Abnormal Heart Sounds: Absent: S3 Gallop - Gastrointestinal General gastrointestinal: Present: soft. Absent: tenderness - Psychiatric Psychiatric: Present: A&O x's 3 - Labs CBC & Chem 7: 09/20/21 08:53 09/20/21 08:53 Labs: Abnormal Lab Results - Last 24 Hours (Table) 09/20/21 09/20/21 09/20/21 Range/Units 08:53 08:53 08:53 Neutrophils # 9.3 H (1.3-7.7) k/uL Lymphocytes # 0.4 L (1.0-4.8) k/uL APTT 50.6 H (22.0-30.0) sec Creatinine 0.53 L (0.66-1.25) mg/dL Glucose 143 H (74-99) mg/dL Microbiology - Last 24 Hours (Table) 09/18/21 16:05 Blood Culture - Preliminary Blood No Growth after 48 hours 09/18/21 15:50 Blood Culture - Preliminary Blood No Growth after 48 hours 09/18/21 21:01 Gram Stain - Preliminary Sputum Sputum Culture - Preliminary Assessment and Plan (1) Lung mass Current Visit: Yes Status: Acute Code(s): R91.8 - OTHER NONSPECIFIC ABNORMAL FINDING OF LUNG FIELD SNOMED Code(s): 286890080 (2) Pneumonia Current Visit: Yes Status: Acute Code(s): J18.9 - PNEUMONIA, UNSPECIFIED ORGANISM SNOMED Code(s): 509184122 (3) Pulmonary embolus Current Visit: Yes Status: Acute Code(s): I26.99 - OTHER PULMONARY EMBOLISM WITHOUT ACUTE COR PULMONALE SNOMED Code(s): 00850221 (4) COPD (chronic obstructive pulmonary disease) Current Visit: No Status: Acute Code(s): J44.9 - CHRONIC OBSTRUCTIVE PULMONARY DISEASE, UNSPECIFIED SNOMED Code(s): 90059399 (5) HTN (hypertension) Current Visit: No Status: Acute Code(s): I10 - ESSENTIAL (PRIMARY) HYPERTENSION SNOMED Code(s): 03791353 Plan: Appreciate pulmonary input. We'll continue to follow. Prognosis is guarded secondary to his multiple comorbidities. Still with COPD status. Await EGD today. 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 and hopefully discharge
[2021-09-21 10:08] LABS: HGB 12.9 gm/dL (13.0-17.5); MCH 29.9 pg (25.0-35.0); MCHC 31.3 g/dL (31.0-37.0); MCV 95.6 fL (80.0-100.0); Mean Platelet Volume 7.8; Platelet Count 184 k/uL (150-450); RBC 4.29 m/uL (4.30-5.90); RDW 13.7 % (11.5-15.5); WBC 7.4 k/uL (3.8-10.6)
[2021-09-21 10:48] LABS: ALT 20 U/L (4-49); AST 32 U/L (17-59); African American GFR (CKD) >90 (>60 ml/min/1.73 sqM); Albumin 3.3 g/dL (3.5-5.0); Alkaline Phosphatase 33 U/L (38-126); Anion Gap 6 mmol/L; Blood Urea Nitrogen 18 mg/dL (9-20); Calcium 8.9 mg/dL (8.4-10.2); Carbon Dioxide 29 mmol/L (22-30); Chloride 106 mmol/L (98-107); Glucose 130 mg/dL (74-99); Non-African American GFR(CKD) >90 (>60 ml/min/1.73 sqM); Potassium 3.9 mmol/L (3.5-5.1); Sodium 141 mmol/L (137-145); Total Bilirubin 0.5 mg/dL (0.2-1.3); Total Protein 6.2 g/dL (6.3-8.2)
[2021-09-21] MEDS: allopurinoL 100 MG TAB PO SCH (11:17)
[2021-09-21] MEDS: FAMOTIDINE 20 MG TAB PO SCH (11:17)
[2021-09-21] MEDS: lisinopriL 20 MG TAB PO SCH (11:17)
[2021-09-21] MEDS: TAMSULOSIN 0.4 MG CAP.ER.24H PO SCH (11:17)
--- NOTE | 2021-09-21 12:15 | P.PN ---
Subjective Progress Note Date: 09/21/21 Principal diagnosis: Acute pulmonary embolism and right lower lobe nodule, suspicious 69-year-old male patient, a chronic smoker, with known history of COPD, who was in [place] and he had increased shortness of breath cough chest congestion and chest tightness and wheeze. He was seen in several clinics in [place] and he was given an antibiotic and steroid. At the same time, he was given a chest x- ray and a CAT scan of the chest and the patient was found to have a lesion in the right lower lobe and he was asked to follow-up with his primary care physician accordingly. He was being arranged undergo a PET scan on outpatient basis and the patient ultimately an upcoming to the hospital because of increased shortness of breath, chest pain, and some limited hemoptysis. In the ED, computed tomography scan of the chest was done that showed a 1.5 cm right lower lobe pulmonary nodule, spiculated, highly suspicious for malignancy. At the same time, there was left lower lobe filling defects consistent with pulmonary embolism. Noted the CAT scan of the chest also showed additional adjacent nodule measuring 1 cm in size in the right lower lobe. There was background emphysema. The patient was started on IV heparin. The Doppler of the lower extremity was completed and was negative for DVT. No previous history of DVTs or pulmonary embolism. No other new complaints otherwise for now. The patient is quite short of breath and bronchospastic and wheezy. No fever. No chills. The white cell cause of 10.7 with a hemoglobin of 14.1 and a platelet count of 167. Normal renal function with a creatinine of 0.5. COVID 19 testing is been negative. Reevaluated today on 09/20/21, patient remains on the regular medical floor, feeling better, breathing easier, however I reviewed the CT of the chest, reviewed the workup since admission, and I believe the patient should be evaluated for dysphagia and abnormal thickening of the esophagus as we may be dealing with an underlying esophageal malignancy. His PET scan is scheduled to be done Monday, however I believe the patient could have his EGD tomorrow, could be considered for discharge home on eliquis, could keep the PET scan as scheduled on Monday, and I would likely clear the patient to be discharged home on antibiotics empirically as well as eliquis. And he should definitely have a PET scan on Monday. As we may be dealing with underlying malignancy. I consulted Dr. Tiwariania reevaluate the patient for possible EGD and rule out esophageal malignancy. Reevaluated today on 10/18/21, patient is doing well, he is scheduled to have EGD today, and can potentially be discharged home if cleared by surgery on the case after EGD. Patient needed to be on anticoagulation therapy orally, and he will keep his appointment for a PET scan as scheduled on Monday, he will need follow- up with Dr. Green for his a left lower lobe nodule and that would be after his PET scan. WBC count today is 7.4 hemoglobin is 12.9, his PTT is 53, however heparin is on hold for EGD today . Patient is on room air, O2 sats is 95% Objective - Vital Signs Vital signs: Vital Signs Temp 97.9 F 09/21/21 11:06 Pulse 66 09/21/21 11:06 Resp 18 09/21/21 11:06 BP 160/87 09/21/21 11:06 Pulse Ox 95 09/21/21 11:06 Intake & Output 09/20/21 09/21/21 09/21/21 18:59 06:59 18:59 Intake Total 357.524 136.144 387.763 Balance 357.524 136.144 387.763 Intake: IV 240 240 .9@ 20 240 240 Intake, IV Titration 117.524 136.144 147.763 Amount Heparin Sod,Pork in 0.45% 67.524 136.144 147.763 NaCl 25,000 unit In 0.45 % NaCl 1 250ml.bag @ 18 UNITS/KG/HR 11.839 mls/hr IV .Q21H7M [facility] Rx#: [id number] cefTRIAXone 2 gm In 50 Sodium Chloride 0.9% 50 ml @ 100 mls/hr IVPB Q24HR [facility] Rx#:[id number] Other: Voiding Method Urinal Urinal Urinal # Voids 2 1 1 # Bowel Movements 1 - Exam Physical Exam: Revealed 71-year-old white male in no distress. On room air. Head: Atraumatic, normocephalic. HEENT:[Neck is supple.] [No neck masses.] [No thyromegaly.] [No JVD.] Chest: [Diminished breath sounds at the bases no rhonchi crackles or wheezes Cardiac Exam: [Normal S1 and S2, no S3 gallop, no murmur.] Abdomen: [Soft, nontender, no megaly, no rebound, no guarding, normal bowel sounds.] Extremities: [No clubbing, no edema, no cyanosis.] Neurological Exam: [No focal neurologic deficit.] Alert oriented 3. Psychiatric: Normal mood, affect and normal mental status examination. Skin: No rashes. - Labs CBC & Chem 7: 09/21/21 09:04 09/21/21 09:04 Labs: Abnormal Lab Results - Last 24 Hours (Table) 09/21/21 09/21/21 09/21/21 Range/Units 09:04 09:04 09:04 RBC 4.29 L (4.30-5.90) m/uL Hgb 12.9 L (13.0-17.5) gm/dL APTT 53.0 H (22.0-30.0) sec Creatinine 0.59 L (0.66-1.25) mg/dL Glucose 130 H (74-99) mg/dL Alkaline Phosphatase 33 L (38-126) U/L Total Protein 6.2 L (6.3-8.2) g/dL Albumin 3.3 L (3.5-5.0) g/dL Microbiology - Last 24 Hours (Table) 09/18/21 21:01 Gram Stain - Final Sputum Sputum Culture - Final 09/18/21 16:05 Blood Culture - Preliminary Blood No Growth after 48 hours 09/18/21 15:50 Blood Culture - Preliminary Blood No Growth after 48 hours Assessment and Plan Assessment: Impression: Acute left lower lobe pulmonary embolism Spiculated nodule in the left lower lobe, suspicious for malignancy. Acute exacerbation of COPD Possible community acquired pneumonia Tobacco dependence syndrome History of gout Benign essential hypertension Dysphagia and abnormal esophageal findings on CT of the chest, patient is undergoing EGD today. Recommendation: Agree with EGD today for evaluation of the esophagus and dysphagia. Continue treatment for his underlying COPD Continue antibiotics/Rocephin and Zithromax. Continue heparin however will hold the heparin if EGD is to be done tomorrow. Patient to go on eliquis upon discharge. Or after EGD. Keep appointment for the PET scan as scheduled on Monday. Follow-up with Dr. Green postdischarge, may require outpatient bronchoscopy in the near future. We will continue to follow Time with Patient: Less than 30
[2021-09-21 15:23] VITALS: BP 135/73; PULSE 64; TEMP 97.8
[2021-09-21] MEDS ORDERED: SODIUM CHLORIDE 0.9% 100 ML IV ONE (15:51)
--- NOTE | 2021-09-21 16:14 | P.OP ---
Date of Procedure: 09/21/21 Preoperative Diagnosis: Possible esophageal stricture Postoperative Diagnosis: Mild antral gastritis No evidence of esophageal stricture Procedure(s) Performed: EGD Anesthesia: MAC Surgeon: Chilo Escobar Pathology: other (Antrum, esophagus) Condition: stable Disposition: PACU Description of Procedure: The patient's placed on the endoscopy table in the lateral position. He received IV sedation. The gastro-/oropharynx passed in the esophagus into the stomach. Scope was then placed through the pylorus. First and second portion of the duodenum appeared normal. The scope was then brought back the antrum was mildly inflamed. A biopsies performed. Scope was then retroflexed and the remainder the stomach appeared normal. The GE junction was at 40 cm. The distal esophagus appeared inflamed and a biopsies performed. The proximal esophagus appeared normal. Scope withdrawn for patient. There is no evidence of any esophageal stricture.
[2021-09-21] MEDS ORDERED: APIXABAN 5 MG TAB PO SCH (21:00)
--- NOTE | 2021-09-22 17:34 | P.DS ---
Providers Date of admission: 09/18/21 15:23 Attending physician: Olu Au Consults: 09/18/21 15:24 Consult Physician Urgent Consulting Provider: Eduar Green Consult Reason/Comments: PE, ? pneumonia, lung mass Do you want consulting provider notified?: Yes 09/20/21 09:53 Consult Physician Routine Consulting Provider: Chiol Escobar Consult Reason/Comments: possible EGD, esophageal narrowing Do you want consulting provider notified?: Yes Primary care physician: Oul Au - Discharge Diagnosis(es) (1) Lung mass Status: Acute (2) Pneumonia Status: Acute (3) Pulmonary embolus Status: Acute (4) COPD (chronic obstructive pulmonary disease) Status: Acute (5) HTN (hypertension) Status: Acute Hospital Course: This is a discharge summary on a 71-year-old white male essentially admitted for pneumonia with lung nodule and element of pulmonary embolus. The patient was started on heparin and pulmonology was consulted. Do the CAT scan showing significant esophageal issue and possible deformity, the patient had EGD prior to discharge. There is some gastritis but no overt problems related to his 1.5 cm speculated nodule. He is scheduled for PET scan in the next several days and we will follow-up with him once that is stable with the next 3-5 days. He is discharged on appropriate Eliquis or Xarelto and follow-up with me in about a week. Patient Condition at Discharge: Serious Plan - Discharge Summary New Discharge Prescriptions: New Apixaban [Eliquis] 5 mg PO BID 30 Days #74 tab Continue allopurinoL [Zyloprim] 100 mg PO DAILY Enalapril [Vasotec] 20 mg PO BID Zolpidem [Ambien] 5 mg PO HS traMADol HCL 50 mg PO Q4H PRN PRN Reason: Pain Albuterol Sulfate [Proair Hfa] 2 puff INHALATION RT-Q6H PRN PRN Reason: Shortness Of Breath Tamsulosin [Flomax] 0.8 mg PO DAILY Discharge Medication List Enalapril [Vasotec] 20 mg PO BID 01/21/20 [History] allopurinoL [Zyloprim] 100 mg PO DAILY 01/21/20 [History] Albuterol Sulfate [Proair Hfa] 2 puff INHALATION RT-Q6H PRN 09/18/21 [History] Tamsulosin [Flomax] 0.8 mg PO DAILY 09/18/21 [History] Zolpidem [Ambien] 5 mg PO HS 09/18/21 [History] traMADol HCL 50 mg PO Q4H PRN 09/18/21 [History] Apixaban [Eliquis] 5 mg PO BID 30 Days #74 tab 09/21/21 [Rx] Follow up Appointment(s)/Referral(s): Olu Au MD [Primary Care Provider] - 1-2 days Eduar Green MD [STAFF PHYSICIAN] - 1 Week Patient Instructions/Handouts: Pulmonary Embolism (DC), Safe Use of Anticoagulants (DC) Discharge Disposition: HOME SELF-CARE
== END 2021-09-21 17:25 | disposition home or self-care (01) | DRG 175 ==
LOC: EC 11:38 → 3SCARD 15:23
PROVIDERS: ADMIT Family Medicine; ATTEND Family Medicine
PROC: 0DB78ZX Excision of Stomach, Pylorus, Via Natural or Artificial Opening Endoscopic, Diagnostic (ICD-10-PCS; 2021-09-21)
PROC: 0DB38ZX Excision of Lower Esophagus, Via Natural or Artificial Opening Endoscopic, Diagnostic (ICD-10-PCS; principal; 2021-09-21 11:30)
DX: I26.99 Other pulmonary embolism without acute cor pulmonale (principal); J18.9 Pneumonia, unspecified organism; J98.11 Atelectasis; R04.2 Hemoptysis; Z20.822 Contact with and (suspected) exposure to COVID-19; K29.60 Other gastritis without bleeding; J43.9 Emphysema, unspecified; R91.8 Other nonspecific abnormal finding of lung field; K21.9 Gastro-esophageal reflux disease without esophagitis; K64.9 Unspecified hemorrhoids; M10.9 Gout, unspecified; I08.1 Rheumatic disorders of both mitral and tricuspid valves; G47.00 Insomnia, unspecified; F17.210 Nicotine dependence, cigarettes, uncomplicated; I10 Essential (primary) hypertension; Z71.6 Tobacco abuse counseling; K22.9 Disease of esophagus, unspecified; R13.10 Dysphagia, unspecified; Z79.899 Other long term (current) drug therapy; Z90.49 Acquired absence of other specified parts of digestive tract; Z88.1 Allergy status to other antibiotic agents; Z98.890 Other specified postprocedural states; Z87.19 Personal history of other diseases of the digestive system; Z87.01 Personal history of pneumonia (recurrent)
CPT/HCPCS: 43239; 71046; 71275; 74177; 80048; 80053; 82150; 83605; 83690; 85025; 85027; 85610; 85730; 87040; 87070; 87205; 87635; 88305; 93005; 93306; 93970; 94760

== ENCOUNTER → 2021-09-24 | Outpatient (CLI) | payer MEDICARE, BC ==
--- NOTE | 2021-09-27 06:02 | PE ---
EXAMINATION TYPE: PET CT fusion skull to thigh DATE OF EXAM: 09/24/2021 COMPARISON: CTA chest and CT abdomen and pelvis September 18, 2021 HISTORY: Solitary pulmonary nodule, abnormal CT TECHNIQUE: Following the intravenous administration of 11.28 mCi of F-18 FDG, whole body images are performed from the skull base to the midthigh. Images are reviewed on the computer in the coronal, a xial, and sagittal planes. Reconstructed rotating images are created on independent workstation and reviewed on the computer. A localization and attenuation correction CT is performed in conjunction with the PET scan. Blood glucose level equals 76. SCAN: Initial Scan FINDINGS: SKULL BASE AND NECK: No areas of abnormal hypermetabolic uptake. CHEST, MEDIASTINUM, AND HILAR REGION: Mild to moderate underlying emphysematous changes redemonstrate d. Persistent 1.5 cm right lower lobe nodule axial image 108 with abnormal hypermetabolic uptake, max SUV is 4.12. There is a smaller 1.0 cm nodule or nodular consolidation just posterior inferior to th is that is ametabolic. Persistent trace left pleural effusion with focal groundglass opacity and organizing consolidation th e posterior aspect left lung base with abnormal hypermetabolic uptake along the medial aspect axial i mage 134, max SUV is 3.25. No additional areas of abnormal hypermetabolic uptake. No suspicious adenopathy. ABDOMEN AND PELVIS: Low dense left adrenal mass axial image 145 favors benign lipid rich adenoma. Nor mal excretion. Tiny posterior subcutaneous nodule right gluteal region axial image 239 is mildly hype rmetabolic favoring inflammatory etiology. No additional areas of abnormal hypermetabolic uptake. OSSEOUS STRUCTURES: No areas of abnormal hypermetabolic uptake. OTHER CT: Subareolar flame-shaped gynecomastia. Prominent pulmonary arteries. Ascending aorta measure s up to 3.6 cm in diameter. Coronary artery calcification is present which is noted marked marker for underlying coronary artery disease. Central calcifications in both kidneys favor vascular etiology. Moderate to severe calcified plaque o f the aortic extends into branch vessels. Enlarged prostate consistent with BPH. Moderate size fat-co ntaining bilateral inguinal hernias. Spine is straightened on sagittal images. IMPRESSION: Suspicious hypermetabolic uptake in the 1.5 cm right lower lobe nodule worrisome for neop lasm. Adjacent other smaller nodule or nodular consolidation is ametabolic. No suspicious adenopathy or metastatic disease. Posterior left basilar findings are nonspecific but favor infectious etiology, correlate clinically. Consider short-term follow-up.
== END | disposition home or self-care (01) ==
LOC: RADPETMAIN 16:24
PROVIDERS: ATTEND Family Medicine
DX: R91.1 Solitary pulmonary nodule (principal)
CPT/HCPCS: 78815; A9552

== ENCOUNTER → 2021-10-14 | Day surgery (SDC) | payer MEDICARE, BC ==
[2021-10-13 14:36] VITALS: BMI 23.1
[~2021-10-14] MED LIST changes: -ACETAMINOPHEN TAB 500 MG TAB PO ONE; +ALBUTEROL NEB (CONC) 2.5 MG/0.5 ML INHALATION ONE; -DEXAMETHASONE SOD PHOSPHATE 10 MG/ML 1 ML VIAL IV ONE; -HEPARIN SODIUM,PORCINE 5,000 UNIT/ML 1 ML VIAL SQ ONE; +LIDOCAINE 2% (PF) 20 MG/ML 5 ML VIAL INHALATION ONE; +LIDOCAINE 2% INJ 20 MG/ML (2 ML VIAL) ONE; +LIDOCAINE VISCOUS 300 MG/15 ML CUP MUCOUS MEM ONE; -MIDAZOLAM 2 MG/2 ML VIAL IV PRN; +MIDAZOLAM 2 MG/2 ML VIAL ONE; -ONDANSETRON 4 MG/2 ML VIAL IVP ONE; +PROPOFOL 10 MG/ML 20 ML VIAL IV ONE; +SODIUM CHLORIDE 0.9% 1,000 ML BAG ONE; +SODIUM CHLORIDE 0.9% 1,000 ML IV SCH; +SUCCINYLCHOLINE CHLORIDE 100 MG/5 ML SYR IV ONE; -fentaNYL (PF) 50 MCG/ML 2 ML AMP IV PRN; -fentaNYL (PF) 50 MCG/ML 2 ML AMP IVP PRN; +fentaNYL (PF) 50 MCG/ML 2 ML AMP ONE; -metroNIDAZOLE-NS PMX 500 MG in SALINE 1 100ML.BAG IVPB ONE
--- NOTE | 2021-10-14 14:56 | P.PCN ---
Date of Procedure: 10/14/21 Operative Findings: Operative Findings: 1 right lower lobe mass Postoperative Diagnosis: 1 right lower lobe mass Procedure(s) Performed: 1 flexible bronchoscopy, airway inspection 2 navigation bronchoscopy, transbronchial biopsy of a right on the right lower lobe mass, brushing of the right lower lobe mass, transbronchial needle aspirate of the right lower lobe mass, bronchioloalveolar lavage of the right lower lobe superior segment Surgeon: Eduar Green Director Auto #1: Allyssa Mcmillan Estimated Blood Loss (ml): 5 cc Pathology: TBBX, brushings and needle aspirate of the right lower lobe mass in addition to a bronchial lavage of the right lower lobe Condition: stable Disposition: same day Operative Findings: The patient had a preoperative computed tomography scan of the chest using the Veran protocol. The CAT scan images were reviewed. The right lower lobe opacity was identified it was mapped appropriately. The CAT scan images are uploaded into a USB and then into the [employer] tower. After obtaining the consent the patient was taken to the OR suite he was intubated and put on mechanical ventilation by anesthesia then the scope was advanced to the ET tube until the Trachea was seen and it was normal and then the xenia appears normal then the scope advanced to the left main and NATAN LB1- LB3 were seen and no endobronchial lesions were seen then the scope advanced to the lingula and the LB4 and LB5 were seen and no endobronchial lesions were seen the scope retracted and advanced to the left lower lobes LB6 to LB12 were seen one by one and no endobronchial lesions, then the scope was retracted back to the xenia and advanced to the Right main and RUL RB1 and RB2 and RB3 were seen one by one and no endobronchial lesions were seen the scope. The bronchoscope was then retracted and advanced to the BI and RML RB4 and RB5 were seen and no endobronchial lesions were seen then it was retracted and advanced to the RLL RB6 to RB12 were seen one by one and no endobronchial lesions. Navigation bronchoscopy was performed. The main xenia and the secondary xenia on the left were used as the reference points and appropriate calibration was done. Following that, using a navigation guidance , the bronchoscope was advanced to the right lower lobe superior segment and various transbronchial biopsies, transbronchial brushings and transbronchial needle aspirate of of the right lower lobe opacity was done without any complications. I also performed a bronchioloalveolar lavage of the right lower lobe superior segment and a total of 80 mL of fluid was infused and 20 mL was suctioned back and this will be sent for cytology and microbial cultures. The bronchoscope was removed, the patient will be extubated and then transferred to recovery. A follow-up chest x-ray will be done in recovery.
--- NOTE | 2021-10-14 15:56 | XR ---
EXAMINATION TYPE: XR chest 1V DATE OF EXAM: 10/14/2021 COMPARISON: Chest x-ray 09/19/2021 HISTORY: Status post bronchoscopy TECHNIQUE: frontal view of the chest obtained on 2 images. FINDINGS: No evident pneumothorax. There is improvement in the basilar density seen on prior exam th e left lower lobe. Interstitium is prominent, patchy density is present in the right lower lobe. Card iac mediastinal silhouette is stable. IMPRESSION: No evident complication status post bronchoscopy
--- NOTE | 2021-10-14 19:19 | CT ---
EXAMINATION TYPE: CT Chest [facility] [place] Protocol DATE OF EXAM: 10/14/2021 COMPARISON: PET CT September 24, 2021 HISTORY: Abnormal CT and PET/CT CT DLP: 308.5 mGycm Automated exposure control for dose reduction was used. FINDINGS: Exam is for bronchoscopy planning and not for diagnostic purposes. Background mild to moderate underl amauri emphysematous change redemonstrated. Spiculated central roughly 1.6 cm right lower lobe nodule i s seen series 8 image 39 corresponding to area of concern on PET/CT. IMPRESSION: As above.
== END | disposition home or self-care (01) ==
LOC: ORWHC2ENDO 10:56
PROVIDERS: ATTEND Internal Medicine Critical Care Medicine
DX: R91.1 Solitary pulmonary nodule (principal); F17.200 Nicotine dependence, unspecified, uncomplicated; I10 Essential (primary) hypertension; J44.9 Chronic obstructive pulmonary disease, unspecified; K21.9 Gastro-esophageal reflux disease without esophagitis; N42.9 Disorder of prostate, unspecified; Z86.711 Personal history of pulmonary embolism; Z90.49 Acquired absence of other specified parts of digestive tract; Z87.01 Personal history of pneumonia (recurrent); Z79.899 Other long term (current) drug therapy; Z79.01 Long term (current) use of anticoagulants; Z79.51 Long term (current) use of inhaled steroids; Z88.1 Allergy status to other antibiotic agents
CPT/HCPCS: 87798 ×3; 87496; 87498; 87529; 88104; 88108; 88305; 87252; 87502; 87634; 87070; 87205; 87116; 87102; 87077; 87186; 87206; 71045; 71250; 31628; 31629; 31623; 31624; 31627; J2250; J3010; J0330; J2704; J2001; 87075

== ENCOUNTER → 2022-01-25 | Outpatient (CLI) | payer MEDICARE, BC ==
[2022-01-25 12:43] LABS: African American GFR (CKD) >90 (>60 ml/min/1.73 sqM); Blood Urea Nitrogen 12 mg/dL (9-20); Non-African American GFR(CKD) >90 (>60 ml/min/1.73 sqM)
--- NOTE | 2022-01-28 11:31 | CT ---
EXAMINATION TYPE: CT chest w con DATE OF EXAM: 01/26/2022 COMPARISON: 09/18/2021 HISTORY: Malignant neoplasm right lower lobe CT DLP: 397.43 mGycm, Automated exposure control for dose reduction was used. CONTRAST: Performed injected with 0 mL of Isovue 300. TECHNIQUE: Axial images were obtained at 5 mm thick sections. Reconstructed images are reviewed on [employer] computer in the coronal plane. FINDINGS: Portion of the thyroid visualized is normal. There is a spiculated nodule measuring 1.4 cm in the right lower lobe suspicious for neoplasm. PET/CT could be performed for additional evaluation. Some pleural thickening or infiltrate is in the metal precision machine assembler ior left lung base. No enlarged mediastinal or hilar adenopathy is evident. The ascending aorta diameter at the level o f the main pulmonary artery is 3.7 cm. The main pulmonary artery diameter at the bifurcation is 2.[address] sections are obtained through the upper abdomen. Abdomen is essentially unremarkable. Note is made of some mildly diffuse thickening throughout the esophagus. IMPRESSIONS: 1. 1.4 cm spiculated mass right lower lobe. PET/CT recommended for additional workup to diffusely thi ckened esophagus. Consider additional evaluation.
== END | disposition home or self-care (01) ==
LOC: RADCTMAIN 11:56
PROVIDERS: ATTEND Radiology Radiation Oncology
DX: C34.31 Malignant neoplasm of lower lobe, right bronchus or lung (principal)
CPT/HCPCS: 36415; 71260; 82565; 84520

== ENCOUNTER 2022-03-07 11:45 | Day surgery (SDC) | payer MEDICARE, BC ==
[2022-03-03 15:56] VITALS: BMI 22.6
[~2022-03-07 11:45] MED LIST changes: -ALBUTEROL NEB (CONC) 2.5 MG/0.5 ML INHALATION ONE; +LACTATED RINGERS 1,000 ML IV SCH; +LIDOCAINE 1% (10MG/ML) FOR IV START INTRADERMA PRN; -LIDOCAINE 2% (PF) 20 MG/ML 5 ML VIAL INHALATION ONE; -LIDOCAINE 2% INJ 20 MG/ML (2 ML VIAL) ONE; -LIDOCAINE VISCOUS 300 MG/15 ML CUP MUCOUS MEM ONE; -MIDAZOLAM 2 MG/2 ML VIAL ONE; -PROPOFOL 10 MG/ML 20 ML VIAL IV ONE; -SODIUM CHLORIDE 0.9% 1,000 ML BAG ONE; -SODIUM CHLORIDE 0.9% 1,000 ML IV SCH; -SUCCINYLCHOLINE CHLORIDE 100 MG/5 ML SYR IV ONE; -fentaNYL (PF) 50 MCG/ML 2 ML AMP ONE
[2022-03-07 12:31] VITALS: TEMP 98.3
[2022-03-07] MEDS ORDERED: PROPOFOL 10 MG/ML 20 ML VIAL IV ONE (13:22)
--- NOTE | 2022-03-07 13:26 | P.GSHP ---
History of Present Illness H&P Date: 03/07/22 Chief Complaint: Constipation Is a 72-year-old male who's had issues with constipation. Patient presents today for colonoscopy. Past Medical History Past Medical History: Asthma, Cancer, COPD, GERD/Reflux, Hearing Disorder / Deafness, Hypertension, Pulmonary Embolus (PE) Additional Past Medical History / Comment(s): Gout. 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 Colonoscopies, maulik cataracts, Past Anesthesia/Blood Transfusion Reactions: No Reported Reaction Smoking Status: Current every day smoker - Past Family History Mother Family Medical History: No Reported History Brother(s) Additional Family Medical History / Comment(s): brain aneurysm Medications and Allergies Home Medications Medication Instructions Recorded Confirmed Type Enalapril [Vasotec] 20 mg PO BID 01/21/20 03/07/22 History allopurinoL [Zyloprim] 100 mg PO DAILY 01/21/20 03/07/22 History Tamsulosin [Flomax] 0.8 mg PO DAILY PRN 09/18/21 03/07/22 History Zolpidem [Ambien] 5 mg PO HS PRN 09/18/21 03/07/22 History Apixaban [Eliquis] 5 mg PO BID 30 Days #74 tab 09/21/21 03/07/22 Rx Docusate [Colace] 100 mg PO HS 01/05/22 03/07/22 History Albuterol Nebulized [Ventolin 2.5 mg INHALATION DIRECTED PRN 03/03/22 03/07/22 History Nebulized] Calcium Carbonate [Tums] 500 mg PO DIRECTED PRN 03/03/22 03/07/22 History Fexofenadine HCl [Adriana Allergy] 180 mg PO HS PRN 03/03/22 03/07/22 History Allergies Allergy/AdvReac Type Severity Reaction Status Date / Time cephalexin [From Keflex] AdvReac dizzyness Verified 03/07/22 12:21 Surgical - Exam Vital Signs Temp Pulse Resp BP Pulse Ox 98.3 F 84 14 123/66 94 L 03/07/22 12:29 03/07/22 12:29 03/07/22 12:29 03/07/22 12:29 03/07/22 12:29 - General well developed, well nourished, no distress - Eyes PERRL - ENT normal pinna - Neck no masses - Respiratory normal expansion - Cardiovascular Rhythm: regular - Abdomen Abdomen: soft, non tender Assessment and Plan Assessment: Constipation. We'll perform colonoscopy.
--- NOTE | 2022-03-07 13:35 | P.OP ---
Date of Procedure: 03/07/22 Preoperative Diagnosis: Constipation Postoperative Diagnosis: Sigmoid colon polyp Procedure(s) Performed: Colonoscopy Anesthesia: MAC Surgeon: Chilo Escobar Pathology: other (With colon polyp) Condition: stable Disposition: PACU Description of Procedure: The patient's placed on the endoscopy table in the lateral position. He received IV sedation. Digital rectal exam was performed. This revealed no ebonized. The flexible colonoscope was then placed patient anus and passed throughout the entire colon. The ileocecal valve was visualized. Cecum, ascending and transverse colon appeared normal. The descending colon appeared normal. Scope summer back the sigmoid colon and a polyp was seen. This removed the cold forcep. Scope was then brought back the rectum this appeared normal. Scope was withdrawn for patient.
[2022-03-07 13:38] VITALS: RESP 16
[2022-03-07 14:10] VITALS: BP 132/85; PULSE 75
== END 2022-03-07 14:50 | disposition home or self-care (01) ==
LOC: ORWHC2ENDO 11:45
PROVIDERS: ATTEND Surgery
DX: D12.5 Benign neoplasm of sigmoid colon (principal); J44.9 Chronic obstructive pulmonary disease, unspecified; K21.9 Gastro-esophageal reflux disease without esophagitis; I10 Essential (primary) hypertension; K59.00 Constipation, unspecified; F17.200 Nicotine dependence, unspecified, uncomplicated; Z87.19 Personal history of other diseases of the digestive system; Z90.89 Acquired absence of other organs; Z82.3 Family history of stroke; Z98.41 Cataract extraction status, right eye; Z98.42 Cataract extraction status, left eye; Z79.82 Long term (current) use of aspirin; Z79.83 Long term (current) use of bisphosphonates; Z79.01 Long term (current) use of anticoagulants; Z79.51 Long term (current) use of inhaled steroids; Z88.1 Allergy status to other antibiotic agents; Z86.711 Personal history of pulmonary embolism
CPT/HCPCS: 88305; 45380; J2704

== ENCOUNTER → 2022-03-09 | Outpatient (CLI) | payer MEDICARE, BC ==
[2022-03-09 07:10] LABS: African American GFR (CKD) >90 (>60 ml/min/1.73 sqM); Blood Urea Nitrogen 14 mg/dL (9-20); Non-African American GFR(CKD) >90 (>60 ml/min/1.73 sqM)
--- NOTE | 2022-03-09 09:54 | CT ---
EXAMINATION TYPE: CT abdomen pelvis w con DATE OF EXAM: 03/09/2022 COMPARISON: Correlation PET/CT of 09/24/2021. CT 01/24/2020. HISTORY: 72-year-old male K57.32, Diverticulitis TECHNIQUE: Contiguous axial scanning of the abdomen and pelvis following administration of 70 ml Isov ue 300 IV contrast. Delayed images through the kidneys and coronal/sagittal reconstructions performe d. CT DLP: 896 mGycm Automated exposure control for dose reduction was used. FINDINGS: Heart normal size. No pericardial effusion. Ectatic lower descending thoracic aorta with moderate atherosclerotic calcifications. Residual pleural parenchymal scarring at the posterior left base at the site of previous abnormal sub pleural collection. Mild emphysematous change in the lower lungs. Moderate to severe atherosclerotic plaque and calcifications throughout the abdominal aorta and iliac arteries with a levels of fusiform ectasia up to 2.7 cm. There may be a severe proximal common iliac artery stenoses on both sides. Some focal fat along the anterior falciform ligament. No other focal liver lesion seen. Portal venous system is patent. No biliary ductal dilatation. Gallbladder, kidneys with some vascular calcifications, and pancreas within normal limits. Mild diffuse thickening of the bilateral adrenal glands without discrete nodularity. Findings may ref lect underlying adrenal hyperplasia. No dilated small bowel, free fluid, free air. No mesenteric or retroperitoneal lymphadenopathy. No significant stool burden. Oral contrast progressed to the distal sigmoid. There is a staple line a t the rectosigmoid junction related to prior resection and reanastomosis. No pericolonic inflammatory change. Appendix not visualized. There is an intramuscular lipoma along the anterior left gluteus minima/medius musculature measuring 8.3 x 4.0 x 1.5 cm. Unchanged from 01/24/2020. Mild circumferential bladder wall thickening. Prostate gland is enlarged at 4.4 cm wide with a an enl arged median lobe of prostate gland impressing on the base of the bladder. Patulous right lateral can al. No abnormal fluid collection in the pelvis or pelvic lymphadenopathy seen. Bones: Mild degenerative spurring at the hips. Mild degenerative change SI joints. Moderate degenerat rene disc disease mid to lower lumbar spine with facet arthropathy. IMPRESSION: 1. RESIDUAL PLEURAL PARENCHYMAL SCARRING AT THE posterior left base at the site of previous abnormal subpleural (probably infectious) collection seen on 09/24/2021. 2. Status post resection and reanastomosis at the rectosigmoid junction. No pericolonic inflammatory change. No significant stool burden. 3. Hypertrophy of the median lobe of the prostate gland impressing on the base of the bladder. Correl ate for potential symptoms of BPH. 4. Moderate to severe atherosclerotic change abdominal aorta and iliac arteries. Levels of fusiform e ctasia up to 2.7 cm and the abdominal aorta. Possible severe stenoses in the bilateral proximal commo n iliac arteries.
== END | disposition home or self-care (01) ==
LOC: RADCTMAIN 06:23
PROVIDERS: ATTEND Surgery
DX: N40.0 Benign prostatic hyperplasia without lower urinary tract symptoms (principal); I70.0 Atherosclerosis of aorta
CPT/HCPCS: 82565; 84520; 74177; 36415; Q9967 ×2

== ENCOUNTER 2022-04-13 20:17 | Emergency (ER) | payer MEDICARE, BC ==
--- NOTE | 2022-04-13 20:34 | ED ---
URI HPI - General Chief Complaint: Upper Respiratory Infection Stated Complaint: Cough,Congestion Time Seen by Provider: 04/13/22 20:24 Source: patient, RN notes reviewed Mode of arrival: ambulatory Limitations: no limitations - History of Present Illness Initial Comments: Patient is a 72-year-old male presenting to the emergency room with complaints of cough and congestion. He reports that he was seen by Dr. Au last week who placed him on Zithromax along with nebulized treatments. He continues to use nebulized treatments but has completed the Zithromax course and continues to have cough and congestion without any sputum production. He does continue to smoke approximately half a pack a day while being sick and typically 1 pack per day. He reports using a nebulizer around 6 PM today without any significant improvement in symptoms. He denies any significant shortness of breath worse than baseline, chest pain, abdominal pain, nausea, vomiting, lethargy, fevers or chills. He is a past medical history significant for COPD, questionable lung cancer, GERD, hard of hearing, hypertension, gout, BPH and pulmonary emboli. - Related Data Home Medications Medication Instructions Recorded Confirmed Enalapril [Vasotec] 20 mg PO BID 01/21/20 03/07/22 allopurinoL [Zyloprim] 100 mg PO DAILY 01/21/20 03/07/22 Tamsulosin [Flomax] 0.8 mg PO DAILY PRN 09/18/21 03/07/22 Zolpidem [Ambien] 5 mg PO HS PRN 09/18/21 03/07/22 Docusate [Colace] 100 mg PO HS 01/05/22 03/07/22 Albuterol Nebulized [Ventolin 2.5 mg INHALATION DIRECTED PRN 03/03/22 03/07/22 Nebulized] Calcium Carbonate [Tums] 500 mg PO DIRECTED PRN 03/03/22 03/07/22 Fexofenadine HCl [Adriana Allergy] 180 mg PO HS PRN 03/03/22 03/07/22 Previous Rx's Medication Instructions Recorded Apixaban [Eliquis] 5 mg PO BID 30 Days #74 tab 09/21/21 Allergies Allergy/AdvReac Type Severity Reaction Status Date / Time cephalexin [From Keflex] AdvReac dizzyness Verified 04/13/22 20:21 Review of Systems ROS Statement: Those systems with pertinent positive or pertinent negative responses have been documented in the HPI. ROS Other: All systems not noted in ROS Statement are negative. Past Medical History Past Medical History: Asthma, Cancer, COPD, GERD/Reflux, Hearing Disorder / Deafness, Hypertension, Prostate Disorder, Pulmonary Embolus (PE) Additional Past Medical History / Comment(s): Gout. 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 Colonoscopies, maulik cataracts, Past Anesthesia/Blood Transfusion Reactions: No Reported Reaction Past Psychological History: Anxiety Smoking Status: Current every day smoker - Past Family History Mother Family Medical History: No Reported History Brother(s) Additional Family Medical History / Comment(s): brain aneurysm General Exam Limitations: no limitations General appearance: alert, in no apparent distress Head exam: Present: atraumatic, normocephalic, normal inspection Eye exam: Present: normal appearance, PERRL, EOMI. Absent: scleral icterus, conjunctival injection, periorbital swelling ENT exam: Present: normal exam, mucous membranes moist Neck exam: Present: normal inspection. Absent: tenderness Respiratory exam: Present: decreased breath sounds. Absent: respiratory distress, wheezes, rales, rhonchi, stridor, accessory muscle use Cardiovascular Exam: Present: regular rate, normal rhythm, normal heart sounds, systolic murmur. Absent: diastolic murmur, rubs, gallop, clicks GI/Abdominal exam: Present: soft, normal bowel sounds. Absent: distended, tenderness, guarding, rebound, rigid Rectal exam: Present: deferred Extremities exam: Present: normal inspection. Absent: pedal edema, joint swelling Back exam: Present: normal inspection, full ROM Neurological exam: Present: alert, oriented X3, CN II-XII intact Psychiatric exam: Present: normal affect, normal mood Skin exam: Present: warm, dry, intact, normal color. Absent: rash Course Vital Signs 04/13/22 04/13/22 04/13/22 20:18 20:27 22:07 Temperature 97.8 F 98.7 F Pulse Rate 78 84 74 Respiratory 18 18 16 Rate Blood Pressure 148/77 127/84 122/80 O2 Sat by Pulse 96 99 99 Oximetry Medical Decision Making - Medical Decision Making cough and congestion; he reports that his breathing is better but that he does still continue to have congestion after course of antibiotics. Will obtain CBC, BMP, Covid and flu swabs along with chest x-ray. No indication for antibiotic therapy, supplemental oxygen, steroids or nebulized treatments at this time. Chest x-ray images interpreted by me shows no infiltrates or consolidations, hyper infiltration noted. Radiologist's report also reviewed. CBC stable. BMP reveals mild dehydration no indication for IV hydration. COVID, influenza and flu swabs all negative. No indication for further diagnostic imaging or laboratory studies. Will discharge home in stable condition with continuation of COPD treatment of inhalers and nebulized treatments as previously prescribed by his fur dyer and PCP. Encouraged use of [id number] nasal spray to help with nasal congestion for sinusitis along with smoking cessation. Case discussed with Dr. Gillespie. - Lab Data Result diagrams: 04/13/22 20:34 04/13/22 20:34 Lab Results 04/13/22 04/13/22 04/13/22 Range/Units 20:30 20:30 20:34 WBC 9.7 (3.8-10.6) k/uL RBC 4.96 (4.30-5.90) m/uL Hgb 15.6 (13.0-17.5) gm/dL Hct 45.2 (39.0-53.0) % MCV 91.1 (80.0-100.0) fL MCH 31.6 (25.0-35.0) pg MCHC 34.6 (31.0-37.0) g/dL RDW 13.1 (11.5-15.5) % Plt Count 208 (150-450) k/uL MPV 7.5 Neutrophils % 88 % Lymphocytes % 6 % Monocytes % 5 % Eosinophils % 1 % Basophils % 0 % Neutrophils # 8.5 H (1.3-7.7) k/uL Lymphocytes # 0.6 L (1.0-4.8) k/uL Monocytes # 0.5 (0-1.0) k/uL Eosinophils # 0.1 (0-0.7) k/uL Basophils # 0.0 (0-0.2) k/uL Sodium (137-145) mmol/L Potassium (3.5-5.1) mmol/L Chloride (98-107) mmol/L Carbon Dioxide (22-30) mmol/L Anion Gap mmol/L BUN (9-20) mg/dL Creatinine (0.66-1.25) mg/dL Est GFR (CKD-EPI)AfAm (>60 ml/min/1.73 sqM) Est GFR (CKD-EPI)NonAf (>60 ml/min/1.73 sqM) Glucose (74-99) mg/dL Calcium (8.4-10.2) mg/dL Coronavirus (PCR) Not Detected (Not Detectd) Influenza Type A RNA Not Detected (Not Detectd) Influenza Type B (PCR) Not Detected (Not Detectd) 04/13/22 Range/Units 20:34 WBC (3.8-10.6) k/uL RBC (4.30-5.90) m/uL Hgb (13.0-17.5) gm/dL Hct (39.0-53.0) % MCV (80.0-100.0) fL MCH (25.0-35.0) pg MCHC (31.0-37.0) g/dL RDW (11.5-15.5) % Plt Count (150-450) k/uL MPV Neutrophils % % Lymphocytes % % Monocytes % % Eosinophils % % Basophils % % Neutrophils # (1.3-7.7) k/uL Lymphocytes # (1.0-4.8) k/uL Monocytes # (0-1.0) k/uL Eosinophils # (0-0.7) k/uL Basophils # (0-0.2) k/uL Sodium 134 L (137-145) mmol/L Potassium 4.2 (3.5-5.1) mmol/L Chloride 102 (98-107) mmol/L Carbon Dioxide 22 (22-30) mmol/L Anion Gap 10 mmol/L BUN 26 H (9-20) mg/dL Creatinine 0.93 (0.66-1.25) mg/dL Est GFR (CKD-EPI)AfAm >90 (>60 ml/min/1.73 sqM) Est GFR (CKD-EPI)NonAf 81 (>60 ml/min/1.73 sqM) Glucose 130 H (74-99) mg/dL Calcium 9.3 (8.4-10.2) mg/dL Coronavirus (PCR) (Not Detectd) Influenza Type A RNA (Not Detectd) Influenza Type B (PCR) (Not Detectd) - Radiology Data Radiology results: report reviewed, image reviewed Chest x-ray two-view impression by radiologist COPD. No acute lung disease. No adverse changes. No suspicious pulmonary mass. Disposition Clinical Impression: Sinusitis Disposition: HOME SELF-CARE Condition: Stable Instructions (If sedation given, give patient instructions): Sinusitis (ED) Additional Instructions: Please continue to use your nebulizer as prescribed by your primary care provider. He may continue to utilize [id number] Flonase and NyQuil as needed. Do not take NyQuil with standing. Smoking cessation encouraged. Please follow-up with your primary care provider. Please return to the Emergency Department if symptoms worsen or any other concerns. Is patient prescribed a controlled substance at d/c from ED?: No Referrals: Olu Au MD [Primary Care Provider] - 1-2 days
[2022-04-13 20:51] LABS: Basophils % (A) 0 %; Eosinophils # (A) 0.1 k/uL (0-0.7); Eosinophils % (A) 1 %; HCT 45.2 % (39.0-53.0); HGB 15.6 gm/dL (13.0-17.5); Lymphocytes # (A) 0.6 k/uL (1.0-4.8); Lymphocytes % (A) 6 %; MCH 31.6 pg (25.0-35.0); MCHC 34.6 g/dL (31.0-37.0); MCV 91.1 fL (80.0-100.0); Mean Platelet Volume 7.5; Monocytes # (A) 0.5 k/uL (0-1.0); Monocytes % (A) 5 %; Neutrophils # (A) 8.5 k/uL (1.3-7.7); Neutrophils % (A) 88 %; Platelet Count 208 k/uL (150-450); RBC 4.96 m/uL (4.30-5.90); RDW 13.1 % (11.5-15.5); WBC 9.7 k/uL (3.8-10.6)
--- NOTE | 2022-04-13 21:17 | XR ---
EXAMINATION TYPE: XR chest 2V DATE OF EXAM: 04/13/2022 COMPARISON: 01/05/2022 HISTORY: Short of breath cough and congestion TECHNIQUE: FINDINGS: Heart is normal. Lungs are clear of consolidation. There are no hilar masses. Costophrenic angles are clear. There is mild pulmonary hyperinflation. Bony thorax is intact. IMPRESSION: COPD. No acute lung disease. No adverse change. No suspicious pulmonary mass.
[2022-04-13 21:20] LABS: African American GFR (CKD) >90 (>60 ml/min/1.73 sqM); Anion Gap 10 mmol/L; Blood Urea Nitrogen 26 mg/dL (9-20); Calcium 9.3 mg/dL (8.4-10.2); Carbon Dioxide 22 mmol/L (22-30); Chloride 102 mmol/L (98-107); Glucose 130 mg/dL (74-99); Non-African American GFR(CKD) 81 (>60 ml/min/1.73 sqM); Potassium 4.2 mmol/L (3.5-5.1); Sodium 134 mmol/L (137-145)
[2022-04-13 22:07] VITALS: BP 122/80; PULSE 74; RESP 16; TEMP 98.7
== END 2022-04-13 22:09 | disposition home or self-care (01) ==
LOC: EC 20:17
DX: J32.9 Chronic sinusitis, unspecified (principal); F17.200 Nicotine dependence, unspecified, uncomplicated; J44.9 Chronic obstructive pulmonary disease, unspecified; I10 Essential (primary) hypertension; Z20.822 Contact with and (suspected) exposure to COVID-19; Z86.711 Personal history of pulmonary embolism; Z88.1 Allergy status to other antibiotic agents; Z79.51 Long term (current) use of inhaled steroids
CPT/HCPCS: 36415; 71046; 80048; 85025; 87502; 87635; 99284

== ENCOUNTER → 2022-09-16 | Outpatient (CLI) | payer MEDICARE, BC ==
[2022-09-16 13:18] LABS: African American GFR (CKD) >90 (>60 ml/min/1.73 sqM); Blood Urea Nitrogen 10 mg/dL (9-20); Non-African American GFR(CKD) >90 (>60 ml/min/1.73 sqM)
--- NOTE | 2022-09-16 14:17 | CT ---
EXAMINATION TYPE: CT chest w con DATE OF EXAM: 09/16/2022 COMPARISON: 01/25/2022 HISTORY: obs for mets hx of lung ca. CT DLP: 275.50 mGycm Automated exposure control for dose reduction was used. TECHNIQUE: CT scan of the chest is performed with IV Contrast, patient injected with 100 mL of Isovue 300. MIP Images are created on CT scanner and reviewed. 3D reconstructed images are created on an independent workstation and reviewed. FINDINGS: The spiculated mass in the right lower lobe is again seen and appears slightly smaller in size. Previ ously it measured approximate 14.3 mm and now measures 13.2 mm. No other suspicious lung masses or nodules are seen. There is no airspace consolidation. There is mild scarring in the lung bases. There is no pleural effusion or pneumothorax. There is no mediastinal, hilar or axillary adenopathy and the great vessels of the chest are normal. As noted previously , is diffuse thickening of the esophagus. Limited scanning through the abdomen reveals no gross abnormality. No osseous abnormalities are seen. IMPRESSION: 1. Slight interval reduction in the spiculated mass in the right lower lobe highly suspicious for tevin plasm. 2. Persistent diffuse thickening of the esophagus
== END | disposition home or self-care (01) ==
LOC: RADCTMAIN 12:31
PROVIDERS: ATTEND Radiology Radiation Oncology
DX: C34.31 Malignant neoplasm of lower lobe, right bronchus or lung (principal); K22.89 Other specified disease of esophagus; R91.8 Other nonspecific abnormal finding of lung field
CPT/HCPCS: 82565; 84520; 71260; 36415; Q9967

== ENCOUNTER 2023-01-11 10:02 | Emergency (ER) | payer MEDICARE, BC ==
[2023-01-11 10:25] VITALS: RESP 18
--- NOTE | 2023-01-11 11:32 | ED ---
Abdominal Pain HPI - General Chief Complaint: Abdominal Pain Stated Complaint: Abd Pain Source: patient Mode of arrival: ambulatory Limitations: no limitations - History of Present Illness Initial Comments: 72-year-old male presents to ED with a chief complaint of abdominal pain. Patient states 2 days ago was lifting 40 pound objects. States after side to experience right upper abdominal pain. This pain is worse with movement and cough. Pain is sharp in nature. No association with food intake. No nausea vomiting diarrhea. Chest pain or shortness of breath. No other complaints. - Related Data Home Medications Medication Instructions Recorded Confirmed Enalapril [Vasotec] 20 mg PO BID 01/21/20 03/07/22 allopurinoL [Zyloprim] 100 mg PO DAILY 01/21/20 03/07/22 Tamsulosin [Flomax] 0.8 mg PO DAILY PRN 09/18/21 03/07/22 Zolpidem [Ambien] 5 mg PO HS PRN 09/18/21 03/07/22 Docusate [Colace] 100 mg PO HS 01/05/22 03/07/22 Albuterol Nebulized [Ventolin 2.5 mg INHALATION DIRECTED PRN 03/03/22 03/07/22 Nebulized] Calcium Carbonate [Tums] 500 mg PO DIRECTED PRN 03/03/22 03/07/22 Fexofenadine HCl [Adriana Allergy] 180 mg PO HS PRN 03/03/22 03/07/22 Previous Rx's Medication Instructions Recorded Apixaban [Eliquis] 5 mg PO BID 30 Days #74 tab 09/21/21 Baclofen 10 mg PO TID PRN #12 tab 01/11/23 Ibuprofen [Motrin] 600 mg PO Q8HR PRN #30 tab 01/11/23 Allergies Allergy/AdvReac Type Severity Reaction Status Date / Time cephalexin [From Keflex] AdvReac dizzyness Verified 01/11/23 10:25 Review of Systems ROS Statement: Those systems with pertinent positive or pertinent negative responses have been documented in the HPI. ROS Other: All systems not noted in ROS Statement are negative. Past Medical History Past Medical History: Asthma, Cancer, COPD, GERD/Reflux, Hearing Disorder / Deafness, Hypertension, Prostate Disorder, Pulmonary Embolus (PE) Additional Past Medical History / Comment(s): Gout. 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 Colonoscopies, maulik cataracts, Past Anesthesia/Blood Transfusion Reactions: No Reported Reaction Past Psychological History: Anxiety Smoking Status: Current every day smoker Past Alcohol Use History: Daily Past Drug Use History: None Reported - Past Family History Mother Family Medical History: No Reported History Brother(s) Additional Family Medical History / Comment(s): brain aneurysm General Exam Limitations: no limitations General appearance: alert, in no apparent distress Eye exam: Present: normal appearance Neck exam: Present: normal inspection Respiratory exam: Present: normal lung sounds bilaterally, other (Reproducible right lower chest wall tenderness to palpation.) Cardiovascular Exam: Present: regular rate, normal rhythm GI/Abdominal exam: Present: soft (No tenderness palpation. No rebound guarding or rigidity.) Extremities exam: Present: normal inspection Back exam: Present: normal inspection Neurological exam: Present: alert, oriented X3 Skin exam: Present: warm, dry Course Vital Signs 01/11/23 10:21 Temperature 98.5 F Pulse Rate 88 Respiratory 18 Rate Blood Pressure 131/71 O2 Sat by Pulse 94 L Oximetry Medical Decision Making - Medical Decision Making Was pt. sent in by a medical professional or institution (, PA, ASSISTANT OFFSET PRESS OPERATOR, urgent care, hospital, or fdc...) When possible be specific @ -No Did you speak to anyone other than the patient for history (EMS, parent, family, police, friend...)? What history was obtained from this source @ -No Did you review nursing and triage notes (agree or disagree)? Why? @ -I reviewed and agree with nursing and triage notes Were old charts reviewed (outside hosp., previous admission, EMS record, old EKG, old radiological studies, urgent care reports/EKG's, fdc records)? Report findings @ -No old charts were reviewed Differential Diagnosis (chest pain, altered mental status, abdominal pain women, abdominal pain men, vaginal bleeding, weakness, fever, dyspnea, syncope, headache, dizziness, GI bleed, back pain, seizure, CVA, palpatations, mental health, musculoskeletal)? @ -Differential Abdominal Pain Men: Appendicitis, cholecystitis, diverticulosis, ischemic bowel, pancreatitis, hepatitis, UTI, gastroenteritis, AAA, incarcerated hernia, bowel obstruction, constipation, inflammatory bowel, hepatitis, peptic ulcer disease, splenic infarction, perforated viscus, testicular torsion, this is not meant to be an all-inclusive list EKG interpreted by me (3pts min.). @ -None X-rays interpreted by me (1pt min.). @ -None done CT interpreted by me (1pt min.). @ -None done U/S interpreted by me (1pt. min.). @ -US interpreted by me. Ultrasound shows no acute findings. What testing was considered but not performed or refused? (CT, X-rays, U/S, labs)? Why? @ -None What meds were considered but not given or refused? Why? @ -None Did you discuss the management of the patient with other professionals (professionals i.e. , PA, ASSISTANT OFFSET PRESS OPERATOR, lab, RT, psych nurse, director of social media marketing, network systems analyst, teacher, ship's electronic warfare officer, medical case worker)? Give summary @ -No Was smoking cessation discussed for >3mins.? @ -No Was critical care preformed (if so, how long)? @ -No Were there social determinants of health that impacted care today? How? (Homelessness, low income, unemployed, alcoholism, drug addiction, transportation, low edu. Level, literacy, decrease access to med. care, retirement, rehab)? @ -No Was there de-escalation of care discussed even if they declined (Discuss DNR or withdrawal of care, Hospice)? DNR status @ -No What co-morbidities impacted this encounter? (DM, HTN, Smoking, COPD, CAD, Cancer, CVA, ARF, Chemo, Hep., AIDS, mental health diagnosis, sleep apnea, morbid obesity)? @ -None Was patient admitted / discharged? Hospital course, mention meds given and route, prescriptions, significant lab abnormalities, going to OR and other pertinent info. @ -Discharge. Laboratory studies unremarkable. Ultrasound showed no acute findings. Patient had reproducible pain on palpation of the right lower chest wall. Symptoms likely muscular skeletal in nature. Provided Toradol here and prescription for ibuprofen and baclofen. Patient has follow-up with his PCP tomorrow. Discussed return precautions with patient who verbalizes agreement. Undiagnosed new problem with uncertain prognosis? @ -No Drug Therapy requiring intensive monitoring for toxicity (Heparin, Nitro, Insulin, Cardizem)? @ -No Were any procedures done? @ -No Diagnosis/symptom? @ -Costochondritis Acute, or Chronic, or Acute on Chronic? @ -Acute Uncomplicated (without systemic symptoms) or Complicated (systemic symptoms)? @ -Uncomplicated Side effects of treatment? @ -No Exacerbation, Progression, or Severe Exacerbation? @ -No Poses a threat to life or bodily function? How? (Chest pain, USA, PR, pneumonia, PE, COPD, DKA, ARF, appy, cholecystitis, CVA, Diverticulitis, Homicidal, Suicidal, threat to staff... and all critical care pts) @ -No - Lab Data Result diagrams: 01/11/23 11:51 01/11/23 11:51 Lab Results 01/11/23 01/11/23 Range/Units 11:51 11:51 WBC 10.2 (3.8-10.6) k/uL RBC 5.56 (4.30-5.90) m/uL Hgb 16.7 (13.0-17.5) gm/dL Hct 52.3 (39.0-53.0) % MCV 94.1 (80.0-100.0) fL MCH 30.0 (25.0-35.0) pg MCHC 31.9 (31.0-37.0) g/dL RDW 13.6 (11.5-15.5) % Plt Count 133 L (150-450) k/uL MPV 7.6 Neutrophils % 81 % Lymphocytes % 10 % Monocytes % 6 % Eosinophils % 2 % Basophils % 0 % Neutrophils # 8.2 H (1.3-7.7) k/uL Lymphocytes # 1.0 (1.0-4.8) k/uL Monocytes # 0.6 (0-1.0) k/uL Eosinophils # 0.2 (0-0.7) k/uL Basophils # 0.0 (0-0.2) k/uL Sodium 138 (137-145) mmol/L Potassium 4.3 (3.5-5.1) mmol/L Chloride 100 (98-107) mmol/L Carbon Dioxide 31 H (22-30) mmol/L Anion Gap 7 mmol/L BUN 9 (9-20) mg/dL Creatinine 0.63 L (0.66-1.25) mg/dL Est GFR (CKD-EPI)AfAm >90 (>60 ml/min/1.73 sqM) Est GFR (CKD-EPI)NonAf >90 (>60 ml/min/1.73 sqM) Glucose 104 H (74-99) mg/dL Calcium 9.2 (8.4-10.2) mg/dL Total Bilirubin 0.9 (0.2-1.3) mg/dL AST 26 (17-59) U/L ALT 12 (4-49) U/L Alkaline Phosphatase 39 (38-126) U/L Total Protein 7.2 (6.3-8.2) g/dL Albumin 4.1 (3.5-5.0) g/dL Amylase 46 (30-110) U/L Lipase 86 (23-300) U/L Disposition Clinical Impression: Costochondritis Disposition: HOME SELF-CARE Condition: Good Instructions (If sedation given, give patient instructions): Costochondritis (ED) Additional Instructions: Please return to the Emergency Department if symptoms worsen or any other concerns. Prescriptions: Baclofen 10 mg PO TID PRN #12 tab PRN Reason: Pain Ibuprofen [Motrin] 600 mg PO Q8HR PRN #30 tab PRN Reason: Pain Is patient prescribed a controlled substance at d/c from ED?: No Referrals: Olu Au MD [Primary Care Provider] - 1-2 days Time of Disposition: 12:54
[2023-01-11 12:08] LABS: Basophils % (A) 0 %; Eosinophils # (A) 0.2 k/uL (0-0.7); Eosinophils % (A) 2 %; HCT 52.3 % (39.0-53.0); HGB 16.7 gm/dL (13.0-17.5); Lymphocytes % (A) 10 %; MCHC 31.9 g/dL (31.0-37.0); MCV 94.1 fL (80.0-100.0); Mean Platelet Volume 7.6; Monocytes # (A) 0.6 k/uL (0-1.0); Monocytes % (A) 6 %; Neutrophils # (A) 8.2 k/uL (1.3-7.7); Neutrophils % (A) 81 %; Platelet Count 133 k/uL (150-450); RBC 5.56 m/uL (4.30-5.90); RDW 13.6 % (11.5-15.5); WBC 10.2 k/uL (3.8-10.6)
[2023-01-11 12:18] LABS: ALT 12 U/L (4-49); AST 26 U/L (17-59); African American GFR (CKD) >90 (>60 ml/min/1.73 sqM); Albumin 4.1 g/dL (3.5-5.0); Alkaline Phosphatase 39 U/L (38-126); Amylase 46 U/L (30-110); Anion Gap 7 mmol/L; Blood Urea Nitrogen 9 mg/dL (9-20); Calcium 9.2 mg/dL (8.4-10.2); Carbon Dioxide 31 mmol/L (22-30); Chloride 100 mmol/L (98-107); Glucose 104 mg/dL (74-99); Lipase 86 U/L (23-300); Non-African American GFR(CKD) >90 (>60 ml/min/1.73 sqM); Potassium 4.3 mmol/L (3.5-5.1); Sodium 138 mmol/L (137-145); Total Bilirubin 0.9 mg/dL (0.2-1.3); Total Protein 7.2 g/dL (6.3-8.2)
--- NOTE | 2023-01-11 12:28 | US ---
EXAMINATION TYPE: US gallbladder DATE OF EXAM: 01/11/2023 COMPARISON: NONE CLINICAL INDICATION: Male, 72 years old with history of r/o cholecystitis; RUQ pain TECHNIQUE: Multiple sonographic images of the right upper quadrant are obtained. FINDINGS: EXAM MEASUREMENTS: Liver Length: 18.9 cm Gallbladder Wall: 0.20 CBD: 0.50 cm Right Kidney: 10.2 x 4.9 x 5.1 cm FUEL YARD OPERATOR NOTES: Pancreas: Tail obscured by overlying bowel gas Liver: Increased attenuation, decreased visualization of vessels suggestive of fatty infiltrate Gallbladder: wnl Evidence for sonographic Sepulveda's sign: No CBD: wnl Right Kidney: wnl Trace ascites noted near liver. IMPRESSION: No significant abnormalities seen. Trace ascites.
[2023-01-11] MEDS ORDERED: KETOROLAC 15 MG/ML 1 ML VIAL IM STA (12:33)
[2023-01-11 13:30] VITALS: BP 127/70; PULSE 86; TEMP 98.4
== END 2023-01-11 13:23 | disposition home or self-care (01) ==
LOC: EC 10:02
DX: M94.0 Chondrocostal junction syndrome [Tietze] (principal); I10 Essential (primary) hypertension; J44.9 Chronic obstructive pulmonary disease, unspecified; M10.9 Gout, unspecified; F17.200 Nicotine dependence, unspecified, uncomplicated; Z79.899 Other long term (current) drug therapy; Z88.1 Allergy status to other antibiotic agents
CPT/HCPCS: 36415; 80053; 82150; 83690; 85025; 76705; 99284; 96372; J1885

== ENCOUNTER 2023-01-13 12:55 | Inpatient (IN) | payer MEDICARE, BC ==
--- NOTE | 2023-01-13 13:09 | ED ---
SOB HPI - General Source: patient, RN notes reviewed Mode of arrival: ambulatory Limitations: no limitations - History of Present Illness MD Complaint: shortness of breath, cough <Nannette Trevino - Last Filed: 01/13/23 13:09> <Mustapha Melvin - Last Filed: 01/13/23 21:09> - General Chief Complaint: Shortness of Breath Stated Complaint: COUGHING UP BLOOD Time Seen by Provider: 01/13/23 13:05 - History of Present Illness Initial Comments: This is a 72 year old male who presents to the emergency department for REGINA and hemoptysis. States that the hemoptysis started today. He called his PCP who advised he come to the emergency department for a CT scan. Reports a history of pulmonary embolism. He stopped taking his Eliquis in September of this year after being on it for over a year. (Nannette Trevino) Patient is a 72-year-old male with past medical history remarkable for lung cancer, previously on pelvic rest but has since been stopped, with history of treatment for lung cancer presents emergency Department complaining of shortness of breath and hemoptysis. Also complaining of right-sided chest discomfort. Seems to be pleuritic and palpable over the right ribs secondary to coughing. Symptoms have been ongoing for a few days. Also had a blood-tinged sputum a few times today. Patient's instructed them to come to the emergency department for evaluation. Has a history of COPD. Endorses some shortness of breath. Denies any abdominal pain, nausea, vomiting. His no other acute complaints at this time. Presents for further evaluation of this time. Patient was originally seen is equivocal. Workup was started in triage. (Mustapha Melvin) - Related Data Home Medications Medication Instructions Recorded Confirmed Enalapril [Vasotec] 20 mg PO BID 01/21/20 01/13/23 allopurinoL [Zyloprim] 100 mg PO DAILY 01/21/20 01/13/23 Tamsulosin [Flomax] 0.8 mg PO DAILY 09/18/21 01/13/23 Albuterol Nebulized [Ventolin 2.5 mg INHALATION RT-QID 03/03/22 01/13/23 Nebulized] ALPRAZolam [Xanax] 0.5 mg PO TID PRN 01/13/23 01/13/23 Albuterol Inhaler [Ventolin Hfa 2 puff INHALATION RT-Q6H PRN 01/13/23 01/13/23 Inhaler] Pantoprazole [Protonix] 40 mg PO AC-SUPPER 01/13/23 01/13/23 Previous Rx's Medication Instructions Recorded Baclofen 10 mg PO TID PRN #12 tab 01/11/23 Ibuprofen [Motrin] 600 mg PO Q8HR PRN #30 tab 01/11/23 Allergies Allergy/AdvReac Type Severity Reaction Status Date / Time cephalexin [From Keflex] AdvReac vertigo Verified 01/13/23 20:25 Review of Systems ROS Other: All systems not noted in ROS Statement are negative. <Nannette Trevino - Last Filed: 01/13/23 13:09> ROS Other: All systems not noted in ROS Statement are negative. <Mustapha Melvin - Last Filed: 01/13/23 21:09> ROS Statement: Those systems with pertinent positive or pertinent negative responses have been documented in the HPI. Review of Systems: CONST: Denies fever EYES: Denies blurry vision ENT: Endorses cough C/V: Denies Chest pain RESP: Endorses shortness of breath GI: Denies abdominal pain : Denies dysuria SKIN: Denies rash. MSK: Denies joint pain. NEURO: Denies headache (Mustapha Melvin) Past Medical History Past Medical History: Asthma, Cancer, COPD, GERD/Reflux, Hearing Disorder / Deafness, Hypertension, Prostate Disorder, Pulmonary Embolus (PE) Additional Past Medical History / Comment(s): Gout. 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 Colonoscopies, maulik cataracts, Past Anesthesia/Blood Transfusion Reactions: No Reported Reaction Past Psychological History: Anxiety Smoking Status: Current every day smoker Past Alcohol Use History: Daily Past Drug Use History: None Reported - Past Family History Mother Family Medical History: No Reported History Brother(s) Additional Family Medical History / Comment(s): brain aneurysm <Nannette Trevino - Last Filed: 01/13/23 13:09> General Exam <Nannette Trevino - Last Filed: 01/13/23 13:09> <Mustapha Melvin - Last Filed: 01/13/23 21:09> - General Exam Comments Initial Comments: Visual Physical Exam Vital signs reviewed General: Well-appearing, nontoxic, no acute distress. Head: Normocephalic, atraumatic Eyes: PERRLA, EOMI ENT: Airway patent Chest: Nonlabored breathing Skin: No visual rash, normal skin tone Neuro: Alert and oriented 3 Musculoskeletal: No gross abnormalities I performed the QuickNote portion of this chart. Signed Nannette Trevino PA-C. (Nannette Trevino) General: Appears anxious. HEAD: Normal with no signs of head trauma. EYES: PERRLA, EOMI, conjunctiva normal, no discharge. ENT: Hearing grossly intact, normal oropharynx. RESPIRATORY: Bilateral end expiratory wheezing. Minimal hypoxia. Mild increased work of breathing. C/V: Regular rate and rhythm. S1 and S2 auscultated. Peripheral pulses 2+ and intact throughout. ABD: Abd is soft, nontender, nondistended EXT: Normal range of motion, no obvious deformity SKIN: No rashes or lesions observed on exposed skin. NEURO: Alert and oriented 4. (Mustapha Melvin) Course Vital Signs 01/13/23 01/13/23 01/13/23 13:06 17:21 17:29 Temperature 98.9 F Pulse Rate 81 80 75 Respiratory 26 H Rate Blood Pressure 140/76 O2 Sat by Pulse 93 L Oximetry Fraction of Inspired Oxygen (FIO2) 01/13/23 01/13/23 01/13/23 19:57 20:14 20:25 Temperature Pulse Rate 96 88 95 Respiratory 18 Rate Blood Pressure 135/110 139/74 O2 Sat by Pulse 95 96 Oximetry Fraction of 28 Inspired Oxygen (FIO2) 01/13/23 20:45 Temperature Pulse Rate Respiratory Rate Blood Pressure 147/67 O2 Sat by Pulse Oximetry Fraction of Inspired Oxygen (FIO2) Medical Decision Making - Lab Data Result diagrams: 01/13/23 15:15 01/13/23 15:15 - EKG Data -: EKG Interpreted by [place] <Mustapha Melvin - Last Filed: 01/13/23 21:09> - Medical Decision Making Was pt. sent in by a medical professional or institution (FIORELLA Castillo, [employer] MAKING MACHINE CATCHER, urgent care, hospital, or jail...) When possible be specific @ -No Did you speak to anyone other than the patient for history (EMS, parent, family, police, friend...)? What history was obtained from this source @ -No Did you review nursing and triage notes (agree or disagree)? Why? @ -I reviewed and agree with nursing and triage notes Were old charts reviewed (outside hosp., previous admission, EMS record, old EKG, old radiological studies, urgent care reports/EKG's, jail records)? Report findings @ -Old CTs were reviewed from the past frequent months. Differential Diagnosis (chest pain, altered mental status, abdominal pain women, abdominal pain men, vaginal bleeding, weakness, fever, dyspnea, syncope, headache, dizziness, GI bleed, back pain, seizure, CVA, palpatations, mental health, musculoskeletal)? @ -Differential Dyspnea: Coronary syndrome, arrhythmia, tamponade, asthma, COPD, pulmonary embolism, pneumonia, pneumothorax, pulmonary effusion, anaphylaxis, diabetic ketoacidosis, flailed chest, pulmonary contusion, diaphragmatic rupture, anemia, neuromuscular, this is not meant to be an all-inclusive list. EKG interpreted by me (3pts min.). @ -As above X-rays interpreted by me (1pt min.). @ -Chest x-ray reveals possible right sided pneumonia, however this is where he had previous cancer as well which could be related to what we are seeing. CT interpreted by me (1pt min.). 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 Patient also has bilateral lower lobe pulmonary emboli without any evidence of heart strain. The findings in the right lung consistent with posttreatment of cancer versus possible infection. U/S interpreted by me (1pt. min.). @ -None done What testing was considered but not performed or refused? (CT, X-rays, U/S, labs)? Why? @ -None What meds were considered but not given or refused? Why? @ -None Did you discuss the management of the patient with other professionals (professionals i.e. FIORELLA Castillo, [employer]ACHINE CATCHER, lab, RT, psych nurse, social science professor, certified nurse, teacher, combat information center officer, case reviewer)? Give summary @ -I discussed the CT read with Dr. Vang who initially was unsuccessful in contacting he has my phone was not working. I was able to call back shortly afterwards and we discussed the results including his suspicion for a mural thrombus but cannot definitively rule out thrombosed dissection. Discussed with Dr. Rollins of CT surgery who based on my read degrees it is likely a mural thrombus and not a thrombosed dissection. Either way he states it sounds chronic and recommended anticoagulation which was started with heparin as well as empirically obtaining blood pressure: Control with maps between 65 and 75 as well as heart rate less than 90. I spoke with Dr. Green of the ICU and pulmonology who accepted the patient to the ICU due to the diagnosis as well as the patient be on on a Cardene drip for blood pressure control. I spoke with the admitting team, GLORIA Sheriff who is admitting for Dr. Au who accepted the patient. Was smoking cessation discussed for >3mins.? @ -No Was critical care preformed (if so, how long)? @ -Yes, 42 minutes Were there social determinants of health that impacted care today? How? (Homelessness, low income, unemployed, alcoholism, drug addiction, transportation, low edu. Level, literacy, decrease access to med. care, nursing home, rehab)? @ -No Was there de-escalation of care discussed even if they declined (Discuss DNR or withdrawal of care, Hospice)? DNR status @ -No What co-morbidities impacted this encounter? (DM, HTN, Smoking, COPD, CAD, Cancer, CVA, ARF, Chemo, Hep., AIDS, mental health diagnosis, sleep apnea, morbid obesity)? @ -Cancer Was patient admitted / discharged? Hospital course, mention meds given and route, prescriptions, significant lab abnormalities, going to OR and other pertinent info. @ -Based on the patient's presentation physical exam, presents with what appears to be a COPD exacerbation but cannot definitively rule out PE. Workup was started in triage and was remarkable for EKG that was within normal limits. Chest x-ray shows possible pneumonia on the right lung. Labs showed an elevated d-dimer. Patient's vital signs are within acceptable limits. Exam remarkable syrup for wheezing. Patient be symptomatically treated for COPD and we will obtain CT PE due to the altered d-dimer. Patient was in agreement with this plan. Previously was on blood thinners but has been off for blood thinners for a few months. Vital signs currently within acceptable limits. 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 Appears slightly larger since that time. Patient's troponin is undetectable. BNP within normal limits. CT shows no evidence of right heart strain the patient's PE. I updated the patient at this time. He will be admitted to the hospital. I discussed results with radiology and read initially came back and I contacted ardiothoracic surgery Dr. Rollins. We discussed the imaging and he agreed with anticoagulation with heparin which was completed as well as empiric blood pressure and heart rate control with cold heart rate less than 90 as well as low blood pressure with a map of 65-75. Heart rates have remained stable throughout his stay in the ER between 60 and 85. We will continue to monitor. Patient will be started on a Cardene drip for blood pressure control. I spoke with Dr. Green due to the Cardene drip and the patient's diagnosis and he accepted the patient the ICU. Patient empirically was started on Levaquin over concern for possible infection in the right lung as well and we will symptomatically treat for COPD with steroids as well as breathing treatments. Patient was in agreement with this plan. I spoke with the admitting team, Sharita BERRY of [facility] was covering for Dr. Au who accepted the admission. Undiagnosed new problem with uncertain prognosis? @ -No Drug Therapy requiring intensive monitoring for toxicity (Heparin, Nitro, Insulin, Cardizem)? @ -Heparin Were any procedures done? @ -No Diagnosis/symptom? @ -Bilateral PE, hemoptysis, possible right-sided pneumonia with history of lung cancer Acute, or Chronic, or Acute on Chronic? @ -Acute Uncomplicated (without systemic symptoms) or Complicated (systemic symptoms)? @ -Complicated Side effects of treatment? @ -No Exacerbation, Progression, or Severe Exacerbation? @ -No Poses a threat to life or bodily function? How? (Chest pain, USA, ID, pneumonia, PE, COPD, DKA, ARF, appy, cholecystitis, CVA, Diverticulitis, Homicidal, Suicidal, threat to staff... and all critical care pts) @ -Yes Diagnosis/symptom? @ -Aortic mural thrombus Acute, or Chronic, or Acute on Chronic? @ -Chronic Uncomplicated (without systemic symptoms) or Complicated (systemic symptoms)? @ -Uncomplicated Side effects of treatment? @ -none Exacerbation, Progression, or Severe Exacerbation] @ -no Poses a threat to life or bodily function? @ -Potentially yes Diagnosis/symptom? @ -COPD Acute, or Chronic, or Acute on Chronic? @ -Acute on chronic Uncomplicated (without systemic symptoms) or Complicated (systemic symptoms)? @ -Complicated Side effects of treatment? @ -none Exacerbation, Progression, or Severe Exacerbation] @ -Exacerbation Poses a threat to life or bodily function? @ -Potentially yes (Mustapha Melvin) - Lab Data Lab Results 01/13/23 01/13/23 01/13/23 Range/Units 15:15 15:15 15:15 WBC 9.8 (3.8-10.6) k/uL RBC 5.32 (4.30-5.90) m/uL Hgb 16.1 (13.0-17.5) gm/dL Hct 49.7 (39.0-53.0) % MCV 93.4 (80.0-100.0) fL MCH 30.3 (25.0-35.0) pg MCHC 32.4 (31.0-37.0) g/dL RDW 13.4 (11.5-15.5) % Plt Count 151 (150-450) k/uL MPV 7.7 Neutrophils % 81 % Lymphocytes % 10 % Monocytes % 7 % Eosinophils % 2 % Basophils % 0 % Neutrophils # 7.9 H (1.3-7.7) k/uL Lymphocytes # 0.9 L (1.0-4.8) k/uL Monocytes # 0.6 (0-1.0) k/uL Eosinophils # 0.2 (0-0.7) k/uL Basophils # 0.0 (0-0.2) k/uL PT 9.9 (9.0-12.0) sec INR 0.9 (<1.2) APTT 28.2 (22.0-30.0) sec D-Dimer 1.56 H (<0.60) mg/L FEU Sodium 138 (137-145) mmol/L Potassium 4.0 (3.5-5.1) mmol/L Chloride 104 (98-107) mmol/L Carbon Dioxide 27 (22-30) mmol/L Anion Gap 7 mmol/L BUN 10 (9-20) mg/dL Creatinine 0.57 L (0.66-1.25) mg/dL Est GFR (CKD-EPI)AfAm >90 (>60 ml/min/1.73 sqM) Est GFR (CKD-EPI)NonAf >90 (>60 ml/min/1.73 sqM) Glucose 102 H (74-99) mg/dL Plasma Lactic Acid Jairo (0.7-2.0) mmol/L Calcium 9.0 (8.4-10.2) mg/dL Total Bilirubin 0.8 (0.2-1.3) mg/dL AST 23 (17-59) U/L ALT 12 (4-49) U/L Alkaline Phosphatase 41 (38-126) U/L Troponin I (0.000-0.034) ng/mL NT-Pro-B Natriuret Pep pg/mL Total Protein 6.5 (6.3-8.2) g/dL Albumin 3.4 L (3.5-5.0) g/dL Influenza Type A (PCR) (Not Detectd) Influenza Type B (PCR) (Not Detectd) RSV (PCR) (Not Detectd) SARS-CoV-2 (PCR) (Not Detectd) 01/13/23 01/13/23 01/13/23 Range/Units 15:15 15:15 15:15 WBC (3.8-10.6) k/uL RBC (4.30-5.90) m/uL Hgb (13.0-17.5) gm/dL Hct (39.0-53.0) % MCV (80.0-100.0) fL MCH (25.0-35.0) pg MCHC (31.0-37.0) g/dL RDW (11.5-15.5) % Plt Count (150-450) k/uL MPV Neutrophils % % Lymphocytes % % Monocytes % % Eosinophils % % Basophils % % Neutrophils # (1.3-7.7) k/uL Lymphocytes # (1.0-4.8) k/uL Monocytes # (0-1.0) k/uL Eosinophils # (0-0.7) k/uL Basophils # (0-0.2) k/uL PT (9.0-12.0) sec INR (<1.2) APTT (22.0-30.0) sec D-Dimer (<0.60) mg/L FEU Sodium (137-145) mmol/L Potassium (3.5-5.1) mmol/L Chloride (98-107) mmol/L Carbon Dioxide (22-30) mmol/L Anion Gap mmol/L BUN (9-20) mg/dL Creatinine (0.66-1.25) mg/dL Est GFR (CKD-EPI)AfAm (>60 ml/min/1.73 sqM) Est GFR (CKD-EPI)NonAf (>60 ml/min/1.73 sqM) Glucose (74-99) mg/dL Plasma Lactic Acid Jairo 0.7 (0.7-2.0) mmol/L Calcium (8.4-10.2) mg/dL Total Bilirubin (0.2-1.3) mg/dL AST (17-59) U/L ALT (4-49) U/L Alkaline Phosphatase (38-126) U/L Troponin I <0.012 (0.000-0.034) ng/mL NT-Pro-B Natriuret Pep 377 pg/mL Total Protein (6.3-8.2) g/dL Albumin (3.5-5.0) g/dL Influenza Type A (PCR) (Not Detectd) Influenza Type B (PCR) (Not Detectd) RSV (PCR) (Not Detectd) SARS-CoV-2 (PCR) (Not Detectd) 01/13/23 Range/Units 16:40 WBC (3.8-10.6) k/uL RBC (4.30-5.90) m/uL Hgb (13.0-17.5) gm/dL Hct (39.0-53.0) % MCV (80.0-100.0) fL MCH (25.0-35.0) pg MCHC (31.0-37.0) g/dL RDW (11.5-15.5) % Plt Count (150-450) k/uL MPV Neutrophils % % Lymphocytes % % Monocytes % % Eosinophils % % Basophils % % Neutrophils # (1.3-7.7) k/uL Lymphocytes # (1.0-4.8) k/uL Monocytes # (0-1.0) k/uL Eosinophils # (0-0.7) k/uL Basophils # (0-0.2) k/uL PT (9.0-12.0) sec INR (<1.2) APTT (22.0-30.0) sec D-Dimer (<0.60) mg/L FEU Sodium (137-145) mmol/L Potassium (3.5-5.1) mmol/L Chloride (98-107) mmol/L Carbon Dioxide (22-30) mmol/L Anion Gap mmol/L BUN (9-20) mg/dL Creatinine (0.66-1.25) mg/dL Est GFR (CKD-EPI)AfAm (>60 ml/min/1.73 sqM) Est GFR (CKD-EPI)NonAf (>60 ml/min/1.73 sqM) Glucose (74-99) mg/dL Plasma Lactic Acid Jairo (0.7-2.0) mmol/L Calcium (8.4-10.2) mg/dL Total Bilirubin (0.2-1.3) mg/dL AST (17-59) U/L ALT (4-49) U/L Alkaline Phosphatase (38-126) U/L Troponin I (0.000-0.034) ng/mL NT-Pro-B Natriuret Pep pg/mL Total Protein (6.3-8.2) g/dL Albumin (3.5-5.0) g/dL Influenza Type A (PCR) Not Detected (Not Detectd) Influenza Type B (PCR) Not Detected (Not Detectd) RSV (PCR) Not Detected (Not Detectd) SARS-CoV-2 (PCR) Not Detected (Not Detectd) - EKG Data EKG Comments: 12-lead Electrocardiogram Interpretation Note EKG was reviewed and interpreted by myself. 12-lead ECG performed at 1508 is interpreted by me as revealing normal sinus rhythm at a rate of 74 beats per minute. Indeterminate axis. [place] interval is 182 ms, QRS duration is 85 ms, QTc is 363 ms.. There were no ST or T wave abnormalities to suggest myocardial ischemia or injury. R wave progression across the precordium was satisfactory. By my interpretation this EKG is non-diagnostic for acute ischemia. (Mustapha Melvin) Critical Care Time Critical Care Time: Yes Total Critical Care Time: 42 <Mustapha Melvin - Last Filed: 01/13/23 21:09> Disposition <Nannette Trevino - Last Filed: 01/13/23 13:09> Time of Disposition: 18:45 <Mustapha Melvin - Last Filed: 01/13/23 21:09> Clinical Impression: Aortic mural thrombus, COPD (chronic obstructive pulmonary disease), Pneumonia, Pulmonary emboli, Lung cancer Disposition: ADMITTED IP TO THIS HOSP Condition: Serious
--- NOTE | 2023-01-13 14:05 | XR ---
EXAMINATION TYPE: XR chest 2V DATE OF EXAM: 01/13/2023 COMPARISON: 04/13/2022 TECHNIQUE: PA and lateral views submitted. HISTORY: Difficulty breathing FINDINGS: Right lower lobe consolidation and small effusion. Underlying neoplasm not excluded. Left lung is ben ar. Diffuse emphysematous changes. Heart size normal. Atherosclerotic change aorta. Diffuse osteopeni a with bilateral AC joint arthropathy. IMPRESSION: 1. COPD with right lower lobe infiltrate since effusion. Correlate for pneumonia. Underlying mass not excluded.
[2023-01-13 15:41] LABS: Basophils % (A) 0 %; Eosinophils # (A) 0.2 k/uL (0-0.7); Eosinophils % (A) 2 %; HCT 49.7 % (39.0-53.0); HGB 16.1 gm/dL (13.0-17.5); Lymphocytes # (A) 0.9 k/uL (1.0-4.8); Lymphocytes % (A) 10 %; MCH 30.3 pg (25.0-35.0); MCHC 32.4 g/dL (31.0-37.0); MCV 93.4 fL (80.0-100.0); Mean Platelet Volume 7.7; Monocytes # (A) 0.6 k/uL (0-1.0); Monocytes % (A) 7 %; Neutrophils # (A) 7.9 k/uL (1.3-7.7); Neutrophils % (A) 81 %; Platelet Count 151 k/uL (150-450); RBC 5.32 m/uL (4.30-5.90); RDW 13.4 % (11.5-15.5); WBC 9.8 k/uL (3.8-10.6)
[2023-01-13 15:59] LABS: ALT 12 U/L (4-49); AST 23 U/L (17-59); African American GFR (CKD) >90 (>60 ml/min/1.73 sqM); Albumin 3.4 g/dL (3.5-5.0); Alkaline Phosphatase 41 U/L (38-126); Anion Gap 7 mmol/L; Blood Urea Nitrogen 10 mg/dL (9-20); Carbon Dioxide 27 mmol/L (22-30); Chloride 104 mmol/L (98-107); Glucose 102 mg/dL (74-99); INR 0.9 (<1.2); Non-African American GFR(CKD) >90 (>60 ml/min/1.73 sqM); Partial Thromboplastin Time 28.2 sec (22.0-30.0); Prothrombin Time 9.9 sec (9.0-12.0); Sodium 138 mmol/L (137-145); Total Bilirubin 0.8 mg/dL (0.2-1.3); Total Protein 6.5 g/dL (6.3-8.2)
[2023-01-13] MEDS ORDERED: IPRATROPIUM-ALBUTEROL 3 ML NEB INHALATION STA ×2 (16:29→19:48)
--- NOTE | 2023-01-13 18:19 | CT ---
EXAMINATION TYPE: CT chest angio for PE CT DLP: 336.8 mGycm, Automated exposure control for dose reduction was used. DATE OF EXAM: 01/13/2023 5:55 PM COMPARISON: CT 09/08/2022 CLINICAL INDICATION:Male, 72 years old with history of eval for PE; SOB, cou ghing up blood eval for PE TECHNIQUE/CONTRAST: CTA scan of the thorax is performed with IV Contrast, patient injected with 70ml mL of Isovue 370, [place] P images are created and reviewed these are created on a separate workstation.. FINDINGS: Pulmonary Artery: Bilateral lower lobe filling defects compatible with pulmonary emboli. Lungs/Pleura: Mild to moderate emphysema changes. There is opacity in the right lung base and consoli dation changes in the right middle lobe. Small right pleural effusion. Airway: Large airways are patent. Heart: Heart is within normal limits for size. Vasculature: Crescentic mural density along the proximal descending thoracic aorta which is increased from prior. No intimal flaps in the visualized. There is moderate to severe atherosclerosis througho ut the arterial vasculature. No evidence for aortic aneurysm. The origins of the aortic arch are rodriguez nt. Mediastinum: No gross evidence of adenopathy. Musculoskeletal: No acute osseous abnormalities Soft Tissues: Unremarkable. Lower neck: No significant findings. Upper Abdomen: No significant findings. IMPRESSION: . 1. Bilateral lower lobe pulmonary emboli. No evidence for right heart strain. 2. Consolidation changes in the right middle lobe and interstitial opacities in the right lower lung . Findings suggestive of posttreatment change. Superimposed infection not entirely excluded. 3. Crescentic mural density suggesting thrombus in proximal descending thoracic aorta has increased from prior on 09/08/2022. Alternatively this could represent thrombosed dissection although felt to be less likely given its presence on prior. Attempted to communicated to Dr. Mustapha Melvin MD on 01/13/2023 6:[address] Christophe Vang. Susie ne lines were busy.
[2023-01-13] MEDS ORDERED: HEPARIN SODIUM 1,000 UN/ML (10ML VL) IV PRN (18:40)
[2023-01-13] MEDS ORDERED: HEPARIN SODIUM 1,000 UN/ML (10ML VL) IV ONE (18:40)
[2023-01-13] MEDS ORDERED: NALOXONE 0.4 MG/ML 1 ML VIAL IV PRN (19:00)
[2023-01-13 19:45] LABS: Prothrombin Time 10.2 sec (9.0-12.0)
[2023-01-13] MEDS ORDERED: methylPREDNISolone SOD SUCCI 125 MG/2 ML VIAL IV STA (19:46)
[2023-01-13] MEDS ORDERED: LEVOFLOXACIN 750MG-D5W PMX 750 MG in DEXTROSE/WATER 1 150ML.BAG IVPB STA (19:49)
[2023-01-13] MEDS ORDERED: SODIUM CHLORIDE 0.9% 1,000 ML IV STA (19:51)
[2023-01-13] MEDS: HEPARIN SOD,PORK IN 0.45% NACL 25,000 UNIT in 0.45% NACL 1 250ML.BAG IV SCH (19:52)
[2023-01-13] MEDS: niCARdipine 20 MG in SODIUM CHLORIDE 0.9% 192 ML IV SCH (19:54)
[2023-01-13] MEDS: IPRATROPIUM-ALBUTEROL 3 ML NEB INHALATION SCH (20:13)
[2023-01-13] MEDS ORDERED: LORazepam 2 MG/ML INJ IV STA (20:49)
[2023-01-13 21:32] LABS: Glucose,Whole Blood 132 mg/dL (70-110)
[2023-01-13] MEDS ORDERED: ALBUTEROL NEBULIZED 2.5 MG/3 ML INHALATION PRN (23:07)
[2023-01-13] MEDS: ALPRAZolam 0.5 MG TAB PO PRN (23:48)
[2023-01-13] MEDS: methylPREDNISolone SOD SUCCI 40 MG/ML 1 ML VIAL IV SCH (23:48)
[2023-01-13] MEDS: LIDOCAINE 5% PATCH TOPICAL SCH (23:50)
[2023-01-14] MEDS ORDERED: IPRATROPIUM-ALBUTEROL 3 ML NEB INHALATION PRN (00:18)
[2023-01-14 02:11] LABS: Basophils % (A) 0 %; Eosinophils # (A) 0.1 k/uL (0-0.7); Eosinophils % (A) 1 %; HGB 15.2 gm/dL (13.0-17.5); Lymphocytes # (A) 0.3 k/uL (1.0-4.8); Lymphocytes % (A) 3 %; MCH 30.3 pg (25.0-35.0); MCHC 32.4 g/dL (31.0-37.0); MCV 93.5 fL (80.0-100.0); Mean Platelet Volume 7.2; Monocytes # (A) 0.2 k/uL (0-1.0); Monocytes % (A) 3 %; Neutrophils # (A) 8.6 k/uL (1.3-7.7); Neutrophils % (A) 93 %; Platelet Count 150 k/uL (150-450); RBC 5.03 m/uL (4.30-5.90); RDW 13.4 % (11.5-15.5); WBC 9.2 k/uL (3.8-10.6)
[2023-01-14 04:30] LABS: Basophils % (A) 0 %; Eosinophils % (A) 0 %; HCT 48.3 % (39.0-53.0); HGB 15.9 gm/dL (13.0-17.5); Lymphocytes # (A) 0.4 k/uL (1.0-4.8); Lymphocytes % (A) 4 %; MCH 31.3 pg (25.0-35.0); MCV 94.7 fL (80.0-100.0); Mean Platelet Volume 8.1; Monocytes # (A) 0.2 k/uL (0-1.0); Monocytes % (A) 2 %; Neutrophils # (A) 8.8 k/uL (1.3-7.7); Neutrophils % (A) 93 %; Platelet Count 158 k/uL (150-450); RDW 13.6 % (11.5-15.5); WBC 9.4 k/uL (3.8-10.6)
[2023-01-14 04:51] LABS: African American GFR (CKD) >90 (>60 ml/min/1.73 sqM); Anion Gap 10 mmol/L; Blood Urea Nitrogen 10 mg/dL (9-20); Calcium 8.7 mg/dL (8.4-10.2); Carbon Dioxide 24 mmol/L (22-30); Chloride 102 mmol/L (98-107); Glucose 130 mg/dL (74-99); Non-African American GFR(CKD) >90 (>60 ml/min/1.73 sqM); Sodium 136 mmol/L (137-145)
[2023-01-14 04:58] LABS: Potassium 3.8 mmol/L (3.5-5.1)
[2023-01-14] MEDS ORDERED: Potassium Replacement Protocol 1 EACH MISC MISCELLANE PRN (05:33)
[2023-01-14] MEDS: niCARdipine 20 MG in SODIUM CHLORIDE 0.9% 192 ML IV SCH ×4 (05:51→11:37)
[2023-01-14] MEDS ORDERED: POTASSIUM CHLORIDE ER 20 MEQ TAB.ER PO SCH (06:00)
[2023-01-14] MEDS ORDERED: LORazepam 1 MG TAB PO PRN ×3 (07:01)
[2023-01-14] MEDS ORDERED: LORazepam 0.5 MG TAB PO PRN (07:01)
--- NOTE | 2023-01-14 07:01 | P.HPIM ---
History of Present Illness This is a pleasant 72 years old male with past medical history of Asthma, COPD, GERD/Reflux, Hearing Disorder / Deafness, Hypertension, Pulmonary Embolus about 1 year ago., He is a patient of Dr. Au with covering over the weekend. Patient presents because of coughing up blood. Total about 2 days ago for right upper quadrant abdominal pain of 2 days' duration the plaque sharply agrees with deep breathing and coughing about 7-8/10 in severity. Associated with some tenderness in the right lower ribs laterally (mild) suspected for acute costochondritis is discharged home on ibuprofen and muscle relaxant and to follow up with his PCP Dr. Au which he saw his nurse practitioner on and she gave him cough medicine as he was coughing a lot. The workup yesterday with coughing up of blood and he got concerned and came to the emergency room. Patient has undergone dyspnea for his COPD, he cannot tell if it is worse over the last 2 days or not because he is taking and COPD medicine as he states. He denies any chest pain other than above. And no dizziness, weakness numbness. No other specific complaints. Patient smokes about 1.5 pack per day and he was counseled to quit but he does not want to quit and he tried nicotine patch and did not report. He drinks 3-5 beers daily. He grew marijuana before but he did not like it. Patient has history of colon cancer he got chemoradiotherapy before. He got radiation therapy ( with Dr. Gonzalez last yeae4 ( to the chest?). He was followed up with Dr. Gonzalez and Dr. Green regarding his history of pulmonary embolism, Eliquis was held then. He says it was expensive for him. His vitals looks stable and he is saturating 97% and a 3 L. CBC, BMP are unremarkable. Versus nondetected. CTA of the chest: Bilateral lower lobe pulmonary emboli with no evidence of right heart strains. Consolidation changes in the right middle lobe and interstitial changes in the right lower lung suggestive of posttreatment changes [place] mural density suggestive thrombus in the proximal descending thoracic aorta has increased from prior on 09/08/2022 Review of Systems Review of systems CONSTITUTIONAL: No fever, no malaise, no fatigue. HEENT: No recent visual problems or hearing problems. Denied any sore throat. CARDIOVASCULAR: No orthopnea, PND, no palpitations, no syncope. -PULMONARY: as above GASTROINTESTINAL: No diarrhea, no nausea, no vomiting, no abdominal pain. Normoactive bowel sounds. NEUROLOGICAL: No headaches, no weakness, no numbness. HEMATOLOGICAL: Denies any bleeding or petechiae. GENITOURINARY: Denies any burning micturition, frequency, or urgency. MUSCULOSKELETAL/RHEUMATOLOGICAL: Denies any joint pain, swelling, or any muscle pain. ENDOCRINE: Denies any polyuria or polydipsia. Past Medical History Past Medical History: Asthma, Cancer, COPD, GERD/Reflux, Hearing Disorder / Deafness, Hypertension, Prostate Disorder, Pulmonary Embolus (PE) Additional Past Medical History / Comment(s): Gout. 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 Colonoscopies, maulik cataracts, Past Anesthesia/Blood Transfusion Reactions: No Reported Reaction Past Psychological History: Anxiety Smoking Status: Current every day smoker Past Alcohol Use History: Daily Additional Past Alcohol Use History / Comment(s): Smoking since age 15, >1 ppd, Past Drug Use History: None Reported - Past Family History Mother Family Medical History: No Reported History Brother(s) Additional Family Medical History / Comment(s): brain aneurysm Medications and Allergies Home Medications Medication Instructions Recorded Confirmed Type Enalapril [Vasotec] 20 mg PO BID 01/21/20 01/13/23 History allopurinoL [Zyloprim] 100 mg PO DAILY 01/21/20 01/13/23 History Tamsulosin [Flomax] 0.8 mg PO DAILY 09/18/21 01/13/23 History Albuterol Nebulized [Ventolin 2.5 mg INHALATION RT-QID 03/03/22 01/13/23 History Nebulized] Baclofen 10 mg PO TID PRN #12 tab 01/11/23 01/13/23 Rx Ibuprofen [Motrin] 600 mg PO Q8HR PRN #30 tab 01/11/23 01/13/23 Rx ALPRAZolam [Xanax] 0.5 mg PO TID PRN 01/13/23 01/13/23 History Albuterol Inhaler [Ventolin Hfa 2 puff INHALATION RT-Q6H PRN 01/13/23 01/13/23 History Inhaler] Pantoprazole [Protonix] 40 mg PO AC-SUPPER 01/13/23 01/13/23 History Allergies Allergy/AdvReac Type Severity Reaction Status Date / Time cephalexin [From Keflex] AdvReac vertigo Verified 01/13/23 20:25 Physical Exam Vitals: Vital Signs Temp Pulse Resp BP Pulse Ox FiO2 01/14/23 06:00 73 23 146/77 97 01/14/23 05:00 75 22 134/71 97 01/14/23 04:00 98.4 F 76 25 H 138/73 97 01/14/23 03:00 79 25 H 128/69 95 01/14/23 02:00 79 26 H 135/72 97 01/14/23 01:00 80 25 H 132/76 96 01/14/23 00:00 98 F 86 24 139/73 95 01/13/23 23:00 96 24 164/72 94 L 01/13/23 22:00 104 H 20 115/65 92 L 01/13/23 20:45 147/67 01/13/23 20:25 95 139/74 96 28 01/13/23 20:14 88 01/13/23 19:57 96 18 135/110 95 01/13/23 19:30 88 96 01/13/23 19:00 184/77 91 L 01/13/23 18:30 172/86 89 L 01/13/23 18:26 0 L 79 L 01/13/23 17:29 75 01/13/23 17:21 80 01/13/23 13:06 98.9 F 81 26 H 140/76 93 L Intake and Output 01/13/23 01/13/23 01/14/23 14:59 22:59 06:59 Intake Total 224.166 400 Output Total 405 Balance 224.166 -5 Intake: IV 50 400 Sodium Chloride 0.9% 1, 50 400 000 ml @ 50 mls/hr IV . Q20H [facility] Rx#:[id number] Intake, IV Titration 174.166 Amount niCARdipine 20 mg In 174.166 Sodium Chloride 0.9% 192 ml @ 5 MG/HR 50 mls/hr IV .Q4H [facility] Rx#:[id number] Output: Urine 405 Other: Voiding Method External Catheter # Voids 0 0 Weight 68.946 kg 68.946 kg 70.3 kg GENERAL: The patient is alert and oriented x3, not in any acute distress. Well developed, well nourished. HEENT: Pupils are round and equally reacting to light. EOMI. No scleral icterus. No conjunctival pallor. Normocephalic, atraumatic. No pharyngeal erythema. No thyromegaly. CARDIOVASCULAR: S1 and S2 present. No murmurs, rubs, or gallops. PULMONARY: Chest is clear to auscultation, no wheezing , no crackles. ABDOMEN: Soft, nontender, nondistended, normoactive bowel sounds. No palpable organomegaly. MUSCULOSKELETAL: No joint swelling or deformity. EXTREMITIES: No cyanosis, clubbing, or pedal edema. NEUROLOGICAL: Gross neurological examination did not reveal any focal deficits. SKIN: No rashes. no petechiae. Results CBC & Chem 7: 01/14/23 03:41 01/14/23 03:41 Labs: Abnormal Lab Results - Last 24 Hours (Table) 01/13/23 01/13/23 01/13/23 Range/Units 15:15 15:15 15:15 Neutrophils # 7.9 H (1.3-7.7) k/uL Lymphocytes # 0.9 L (1.0-4.8) k/uL APTT (22.0-30.0) sec D-Dimer 1.56 H (<0.60) mg/L FEU Sodium (137-145) mmol/L Creatinine 0.57 L (0.66-1.25) mg/dL Glucose 102 H (74-99) mg/dL POC Glucose (mg/dL) (70-110) mg/dL Albumin 3.4 L (3.5-5.0) g/dL 01/13/23 01/14/23 01/14/23 Range/Units 21:31 02:02 02:04 Neutrophils # 8.6 H (1.3-7.7) k/uL Lymphocytes # 0.3 L (1.0-4.8) k/uL APTT 54.3 H (22.0-30.0) sec D-Dimer (<0.60) mg/L FEU Sodium (137-145) mmol/L Creatinine (0.66-1.25) mg/dL Glucose (74-99) mg/dL POC Glucose (mg/dL) 132 H (70-110) mg/dL Albumin (3.5-5.0) g/dL 01/14/23 01/14/23 Range/Units 03:41 03:41 Neutrophils # 8.8 H (1.3-7.7) k/uL Lymphocytes # 0.4 L (1.0-4.8) k/uL APTT (22.0-30.0) sec D-Dimer (<0.60) mg/L FEU Sodium 136 L (137-145) mmol/L Creatinine 0.49 L (0.66-1.25) mg/dL Glucose 130 H (74-99) mg/dL POC Glucose (mg/dL) (70-110) mg/dL Albumin (3.5-5.0) g/dL Assessment and Plan Assessment: Acute bilateral pulmonary embolism nicotine dependence Alcohol use disorder at-risk of alcohol withdrawal Right lower lobe posttreatment changes, most likely related to his radiotherapy he got last year worsening thrombosis in the proximal descending thoracic aorta has increased from prior on 09/08/2022 t not excluded History of esophageal thickening Asthma/COPD History of GERD Hypertension Hearing difficulty history of pulmonary embolism Plan: Continue with heparin drip Continue with ampicillin Medrol 40 mg twice daily Surgical consults on the case including pulmonary, cardiology, vascular surgery Monitor blood pressure closely Labs and medication were reviewed.. Continue same treatment. Continue with symptomatic treatment. Resume home medication. Monitor labs and vitals. DVT and GI prophylaxis. Further recommendations as per clinical course of the patient DVT prophylaxis: heparin GI Prophylaxis: Ppi PT/OT: Pending Prognosis is guarded
--- NOTE | 2023-01-14 08:20 | P.GSCN ---
History of Present Illness Consult date: 01/14/23 Reason for Consult: Aortic intramural thrombus Requesting physician: Mustapha Melvin History of present illness: This is a 72-year-old gentleman who follows outpatient with Dr. Au for primary care, Dr. Green for pulmonology, and Dr. Gonzalez for radiation oncology. He has a previous medical history of hypertension, COPD, lung cancer status post radiation, PE on Eliquis about one year ago, current tobacco de pendence, current daily EtOH use, and GERD. Apparently this gentleman just presented to [place] emergency room a couple of days ago with complaints of abdominal pain after lifting heavy objects. He was thought to have costochondritis and was sent home with prescription for ibuprofen and muscle relaxer. Over the last 24 hours he developed difficulty breathing and hemoptysis. He called his primary care physician who directed him back to [facility] emergency room. Chest x-ray completed demonstrated COPD. CTA was also completed demonstrating bilateral lower lobe pulmonary embolism without evidence of right heart strain, and mural thrombus of the proximal descending thoracic aorta. Lab work was unremarkable except d-dimer 1.56. Due to findings on CT scan Dr. Rollins was called from the emergency room, recommended anticoagulation and blood pressure control. The patient was admitted to the intensive care unit with IV nicardipine for blood pressure control as well as IV heparin for anticoagulation with consultation placed to cardiology and pulmonology. Echocardiogram was ordered, yet to be completed. Review of Systems Review of systems was completed and was negative except as noted - Cardiovascular Reports shortness of breath - Gastrointestinal Gastrointestinal Comment(s): Hemoptysis Past Medical History Past Medical History: Asthma, Cancer, COPD, GERD/Reflux, Hearing Disorder / Deafness, Hypertension, Prostate Disorder, Pulmonary Embolus (PE) Additional Past Medical History / Comment(s): Gout. 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 Colonoscopies, maulik cataracts, Past Anesthesia/Blood Transfusion Reactions: No Reported Reaction Past Psychological History: Anxiety Smoking Status: Current every day smoker Past Alcohol Use History: Daily Additional Past Alcohol Use History / Comment(s): Admits to drinking 4-5 beers daily Past Drug Use History: None Reported Additional History: Smokes 2 packs per day for 59 years, denies willingness to quit - Past Family History Mother Family Medical History: No Reported History Brother(s) Additional Family Medical History / Comment(s): brain aneurysm Medications and Allergies Home Medications Medication Instructions Recorded Confirmed Type Enalapril [Vasotec] 20 mg PO BID 01/21/20 01/13/23 History allopurinoL [Zyloprim] 100 mg PO DAILY 01/21/20 01/13/23 History Tamsulosin [Flomax] 0.8 mg PO DAILY 09/18/21 01/13/23 History Albuterol Nebulized [Ventolin 2.5 mg INHALATION RT-QID 03/03/22 01/13/23 History Nebulized] Baclofen 10 mg PO TID PRN #12 tab 01/11/23 01/13/23 Rx Ibuprofen [Motrin] 600 mg PO Q8HR PRN #30 tab 01/11/23 01/13/23 Rx ALPRAZolam [Xanax] 0.5 mg PO TID PRN 01/13/23 01/13/23 History Albuterol Inhaler [Ventolin Hfa 2 puff INHALATION RT-Q6H PRN 01/13/23 01/13/23 History Inhaler] Pantoprazole [Protonix] 40 mg PO AC-SUPPER 01/13/23 01/13/23 History Allergies Allergy/AdvReac Type Severity Reaction Status Date / Time cephalexin [From Keflex] AdvReac vertigo Verified 01/13/23 20:25 Surgical - Exam Vital Signs Temp Pulse Resp BP Pulse Ox 98.9 F 81 26 H 140/76 93 L 01/13/23 13:06 01/13/23 13:06 01/13/23 13:06 01/13/23 13:06 01/13/23 13:06 CONSTITUTIONAL: Awake and alert, appears comfortable, cooperative, well- developed, well-nourished, no pain, no acute distress EYES: Pupils equal, round, reactive to light, normal ocular movement ENT: Moist mucous membranes without oral lesions present NECK: No masses, no bruits, trachea midline RESPIRATORY: Lungs sounds diminished bilaterally. Respirations even, nonlabored. Currently on 3 L nasal cannula with oxygen saturation 97%. Strong cough. No chest wall deformities. No clubbing or cyanosis present CARDIOVASCULAR: S1, S2 present. Regular rate and rhythm, sinus rhythm on telemetry. Palpable peripheral pulses bilaterally. No edema present. No calf pain or tenderness noted. GASTROINTESTINAL: Abdomen soft, nontender, nondistended without masses or organomegaly noted. There is no rebound or guarding present. Active bowel sounds present 4 quadrants. GENITOURINARY: Deferred INTEGUMENTARY: Skin is warm and dry with evidence of good perfusion. NEUROLOGIC: Cranial nerves II through XII intact, normal coordination, no obvious motor or sensory deficits, speech is normal MUSKULOSKELETAL: Able to move all extremities, strength equal bilaterally, normal posture PSYCHIATRIC: Alert and oriented to person place and time, appropriate affect, intact judgment and insight Results - Labs 01/14/23 03:41 01/14/23 03:41 Abnormal Lab Results - Last 24 Hours (Table) 01/13/23 01/13/23 01/13/23 Range/Units 15:15 15:15 15:15 Neutrophils # 7.9 H (1.3-7.7) k/uL Lymphocytes # 0.9 L (1.0-4.8) k/uL APTT (22.0-30.0) sec D-Dimer 1.56 H (<0.60) mg/L FEU Sodium (137-145) mmol/L Creatinine 0.57 L (0.66-1.25) mg/dL Glucose 102 H (74-99) mg/dL POC Glucose (mg/dL) (70-110) mg/dL Albumin 3.4 L (3.5-5.0) g/dL 01/13/23 01/14/23 01/14/23 Range/Units 21:31 02:02 02:04 Neutrophils # 8.6 H (1.3-7.7) k/uL Lymphocytes # 0.3 L (1.0-4.8) k/uL APTT 54.3 H (22.0-30.0) sec D-Dimer (<0.60) mg/L FEU Sodium (137-145) mmol/L Creatinine (0.66-1.25) mg/dL Glucose (74-99) mg/dL POC Glucose (mg/dL) 132 H (70-110) mg/dL Albumin (3.5-5.0) g/dL 01/14/23 01/14/23 Range/Units 03:41 03:41 Neutrophils # 8.8 H (1.3-7.7) k/uL Lymphocytes # 0.4 L (1.0-4.8) k/uL APTT (22.0-30.0) sec D-Dimer (<0.60) mg/L FEU Sodium 136 L (137-145) mmol/L Creatinine 0.49 L (0.66-1.25) mg/dL Glucose 130 H (74-99) mg/dL POC Glucose (mg/dL) (70-110) mg/dL Albumin (3.5-5.0) g/dL Diabetes panel 01/13/23 01/14/23 Range/Units 15:15 03:41 Sodium 138 136 L (137-145) mmol/L Potassium 4.0 3.8 (3.5-5.1) mmol/L Chloride 104 102 (98-107) mmol/L Carbon Dioxide 27 24 (22-30) mmol/L BUN 10 10 (9-20) mg/dL Creatinine 0.57 L 0.49 L (0.66-1.25) mg/dL Glucose 102 H 130 H (74-99) mg/dL Calcium 9.0 8.7 (8.4-10.2) mg/dL AST 23 (17-59) U/L ALT 12 (4-49) U/L Alkaline Phosphatase 41 (38-126) U/L Total Protein 6.5 (6.3-8.2) g/dL Albumin 3.4 L (3.5-5.0) g/dL Calcium panel 01/13/23 01/14/23 Range/Units 15:15 03:41 Calcium 9.0 8.7 (8.4-10.2) mg/dL Albumin 3.4 L (3.5-5.0) g/dL Pituitary panel 01/13/23 01/14/23 Range/Units 15:15 03:41 Sodium 138 136 L (137-145) mmol/L Potassium 4.0 3.8 (3.5-5.1) mmol/L Chloride 104 102 (98-107) mmol/L Carbon Dioxide 27 24 (22-30) mmol/L BUN 10 10 (9-20) mg/dL Creatinine 0.57 L 0.49 L (0.66-1.25) mg/dL Glucose 102 H 130 H (74-99) mg/dL Calcium 9.0 8.7 (8.4-10.2) mg/dL Adrenal panel 01/13/23 01/14/23 Range/Units 15:15 03:41 Sodium 138 136 L (137-145) mmol/L Potassium 4.0 3.8 (3.5-5.1) mmol/L Chloride 104 102 (98-107) mmol/L Carbon Dioxide 27 24 (22-30) mmol/L BUN 10 10 (9-20) mg/dL Creatinine 0.57 L 0.49 L (0.66-1.25) mg/dL Glucose 102 H 130 H (74-99) mg/dL Calcium 9.0 8.7 (8.4-10.2) mg/dL Total Bilirubin 0.8 (0.2-1.3) mg/dL AST 23 (17-59) U/L ALT 12 (4-49) U/L Alkaline Phosphatase 41 (38-126) U/L Total Protein 6.5 (6.3-8.2) g/dL Albumin 3.4 L (3.5-5.0) g/dL - Imaging Chest x-ray: report reviewed, image reviewed CT scan - chest: report reviewed, image reviewed Assessment and Plan Assessment: Bilateral PE, mural thrombus in the proximal descending thoracic aorta present on CTA Hemoptysis Shortness of breath Hypertension, was on nicardipine for control COPD Lung cancer status post radiation History of PE on Eliquis about one year ago Current heavy tobacco dependence Current daily EtOH use GERD Plan: The patient was seen and examined laying in bed in the intensive care unit in no acute distress. Chart/diagnostics reviewed. The case was reviewed last night with Dr. Rollins by the emergency room physicians. Recommendations are for anticoagulation and blood pressure control. No surgical intervention is warranted. Echocardiogram has been ordered, will review when completed. Patient appears to be coughing up small amounts of blood into a kleenex. The patient was educated and counseled regarding smoking cessation, patient states he is not going to quit smoking. He was also counseled regarding cessation of daily EtOH use, especially given the need for anticoagulation. He will be seen today by Dr. Rollins. Medical management of other comorbidities per internal medicine, pulmonology, cardiology. Thank you for this consult. I have personally seen and examined the patient, performed the documentation and the assessment and plan as written. Number of minutes spent on the visit: 30. KYLIE Farley Attending Addendum: Pt seen and evaluated with STYLE ADVISOR above. Agree with her assessment and plan. This is a 72 year M with a hx of Lung CA s/p radiation, DVT/PE on eliquis, who continues to abuse etoh and tobacco who presented to the hospital with hemoptysis. CTA reveals bilateral PE's in addition to a chronic IMH in the descending aorta. However this has increased in size slightly from CT done in August,. Recommend conservative management for his hemoptysis, anticoagulation if possible for both IMH and PE and we will address his aorta electively with possible TEVAR in the future. I spent 45 minutes reviewing the data and discussing findings with the care team. Time with Patient: Greater than 30
[2023-01-14] MEDS: LIDOCAINE 5% PATCH TOPICAL SCH (08:37)
[2023-01-14] MEDS: TAMSULOSIN 0.4 MG CAP.ER.24H PO SCH (08:38)
[2023-01-14] MEDS: THIAMINE 100 MG/ML 2 ML VIAL IVP SCH (08:38)
[2023-01-14] MEDS: PANTOPRAZOLE 40 MG/10 ML VIAL IVP SCH ×2 (08:38→20:42)
[2023-01-14] MEDS: methylPREDNISolone SOD SUCCI 40 MG/ML 1 ML VIAL IV SCH ×2 (08:38→20:41)
[2023-01-14] MEDS: ALBUTEROL NEBULIZED 2.5 MG/3 ML INHALATION SCH ×4 (08:39→21:49)
[2023-01-14] MEDS: IPRATROPIUM-ALBUTEROL 3 ML NEB INHALATION SCH (09:29)
[2023-01-14] MEDS: lisinopriL 20 MG TAB PO SCH ×2 (09:30→20:41)
--- NOTE | 2023-01-14 12:05 | P.CNPUL ---
History of Present Illness Consult date: 01/14/23 Reason for consult: pneumonia, pulmonary embolism History of present illness: 72-year-old male patient is known to have advanced COPD with an FEV1 of 42% of predicted. He is also known to have a right lower lobe mass, bronchoscopy yielded no definitive diagnosis, yet based on the high suspicion for malignancy, the patient was given radiosurgery and most recent CAT scan of the chest that was done in August 2021 showed stable right lower lobe mass and has dropped in size down to 13 mm. As such, there was interval reduction in size of the right lower lobe mass. Note that the patient in addition to COPD and lung mass, as previous history of left lower lobe pulmonary embolism without any DVT. Patient was treated with anticoagulation and subsequent anticoagulation was discontinued. He was unable to afford the cost of Eliquis. He has history of smoking, hypertension and gout in addition to COPD. The patient presented to the emergency department yesterday because of increased cough and congestion worsening shortness of breath. He was having pain along the right side of his chest. He was given a CT angiogram that showed bilateral lower lobe pulmonary emboli without any RV strain pattern. There was also a consolidation of the right lower lobe, right-sided pleural effusion in addition to a mural thrombus in the proximal descending thoracic aorta. His d-dimer was at 1.56. Patient was started on IV heparin. A cardiothoracic consultation was also obtained regarding this mural thrombus. Note that this was a concentric mural density in the proximal descending thoracic aorta that was present and apparently tested somewhat decreased in size compared to the previous CAT scan on 09/08/2022. A thrombosed dissection cannot be completely ruled out. His blood pressure is stable and is currently on his RAINE inhibitor is taking lisinopril 40 mg twice a day. He is running a BP of 135/67. Heart rate is 72. Is also on oxygen 2 L/m nasal cannula. Review of Systems Constitutional: Reports as per HPI Eyes: denies as per HPI, denies blurred vision, denies bulging eye, denies decreased vision, denies diplopia, denies discharge, denies dry eye, denies irritation, denies itching, denies pain, denies photophobia, denies loss of peripheral vision, denies loss of vision, denies tunnel vision/blind spots Ears: deny: decreased hearing, ear discharge, earache, tinnitus Ears, nose, mouth and throat: Reports as per HPI Breasts: absent: as per HPI, gynecomastia Cardiovascular: Reports chest pain, Reports decreased exercise tolerance Respiratory: Reports cough, Reports cough with sputum, Reports dyspnea, Reports hemoptysis, Reports wheezing Gastrointestinal: Reports as per HPI Genitourinary: Reports as per HPI Musculoskeletal: Reports as per HPI Musculoskeletal: absent: ankle pain, ankle stiffness, ankle swelling Integumentary: Reports as per HPI Neurological: Reports as per HPI Psychiatric: Reports as per HPI Endocrine: Reports as per HPI Hematologic/Lymphatic: Reports as per HPI Allergic/Immunologic: Reports as per HPI Past Medical History Past Medical History: Asthma, Cancer, COPD, GERD/Reflux, Hearing Disorder / Deafness, Hypertension, Prostate Disorder, Pulmonary Embolus (PE) Additional Past Medical History / Comment(s): Gout. 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 Colonoscopies, maulik cataracts, Past Anesthesia/Blood Transfusion Reactions: No Reported Reaction Past Psychological History: Anxiety Smoking Status: Current every day smoker Past Alcohol Use History: Daily Additional Past Alcohol Use History / Comment(s): Admits to drinking 4-5 beers daily Past Drug Use History: None Reported - Past Family History Mother Family Medical History: No Reported History Brother(s) Additional Family Medical History / Comment(s): brain aneurysm Medications and Allergies Home Medications Medication Instructions Recorded Confirmed Type Enalapril [Vasotec] 20 mg PO BID 01/21/20 01/13/23 History allopurinoL [Zyloprim] 100 mg PO DAILY 01/21/20 01/13/23 History Tamsulosin [Flomax] 0.8 mg PO DAILY 09/18/21 01/13/23 History Albuterol Nebulized [Ventolin 2.5 mg INHALATION RT-QID 03/03/22 01/13/23 History Nebulized] Baclofen 10 mg PO TID PRN #12 tab 01/11/23 01/13/23 Rx Ibuprofen [Motrin] 600 mg PO Q8HR PRN #30 tab 08/23/23 08/25/23 Rx ALPRAZolam [Xanax] 0.5 mg PO TID PRN 01/13/23 01/13/23 History Albuterol Inhaler [Ventolin Hfa 2 puff INHALATION RT-Q6H PRN 01/13/23 01/13/23 History Inhaler] Pantoprazole [Protonix] 40 mg PO AC-SUPPER 01/13/23 01/13/23 History Allergies Allergy/AdvReac Type Severity Reaction Status Date / Time cephalexin [From Keflex] AdvReac vertigo Verified 01/13/23 20:25 Physical Exam Vitals: Vital Signs Temp Pulse Resp BP Pulse Ox FiO2 01/14/23 11:00 72 24 135/67 97 01/14/23 10:00 80 22 134/79 96 01/14/23 09:00 77 21 144/79 96 01/14/23 08:55 88 01/14/23 08:43 85 01/14/23 08:00 98.1 F 81 20 140/77 94 L 01/14/23 07:00 79 22 138/73 97 01/14/23 06:00 73 23 146/77 97 01/14/23 05:00 75 22 134/71 97 01/14/23 04:00 98.4 F 76 25 H 138/73 97 01/14/23 03:00 79 25 H 128/69 95 01/14/23 02:00 79 26 H 135/72 97 01/14/23 01:00 80 25 H 132/76 96 01/14/23 00:00 98 F 86 24 139/73 95 01/13/23 23:00 96 24 164/72 94 L 01/13/23 22:00 104 H 20 115/65 92 L 01/13/23 20:45 147/67 01/13/23 20:25 95 139/74 96 28 01/13/23 20:14 88 01/13/23 19:57 96 18 135/110 95 01/13/23 19:30 88 96 01/13/23 19:00 184/77 91 L 01/13/23 18:30 172/86 89 L 01/13/23 18:26 0 L 79 L 01/13/23 17:29 75 01/13/23 17:21 80 01/13/23 13:06 98.9 F 81 26 H 140/76 93 L Intake and Output 08/25/23 08/26/23 08/26/23 22:59 06:59 14:59 Intake Total 224.166 400 250 Output Total 405 250 Balance 224.166 -5 0 Intake: IV 50 400 250 Sodium Chloride 0.9% 1, 50 400 250 000 ml @ 50 mls/hr IV . Q20H [facility] Rx#:[id number] Intake, IV Titration 174.166 Amount niCARdipine 20 mg In 174.166 Sodium Chloride 0.9% 192 ml @ 5 MG/HR 50 mls/hr IV .Q4H [facility] Rx#:[id number] Output: Urine 405 250 Other: Voiding Method External Catheter External Catheter # Voids 0 0 0 Weight 68.946 kg 70.3 kg CONSTITUTIONAL: Awake and alert, appears comfortable, cooperative, well- developed, well-nourished, no pain, no acute distress, currently on 2 L of Oxymizer nasal cannula EYES: Pupils equal, round, reactive to light, normal ocular movement ENT: Moist mucous membranes without oral lesions present NECK: No masses, no bruits, trachea midline RESPIRATORY: Lungs sounds diminished bilaterally. Respirations even, nonlabored. Currently on 3 L nasal cannula with oxygen saturation 97%. Strong cough. No chest wall deformities. No clubbing or cyanosis present CARDIOVASCULAR: S1, S2 present. Regular rate and rhythm, sinus rhythm on te lemetry. Palpable peripheral pulses bilaterally. No edema present. No calf pain or tenderness noted. GASTROINTESTINAL: Abdomen soft, nontender, nondistended without masses or organomegaly noted. There is no rebound or guarding present. Active bowel sounds present 4 quadrants. GENITOURINARY: Deferred INTEGUMENTARY: Skin is warm and dry with evidence of good perfusion. NEUROLOGIC: Cranial nerves II through XII intact, normal coordination, no obvious motor or sensory deficits, speech is normal MUSKULOSKELETAL: Able to move all extremities, strength equal bilaterally, normal posture PSYCHIATRIC: Alert and oriented to person place and time, appropriate affect, intact judgment and insight Results - Laboratory Findings CBC and BMP: 01/14/23 03:41 01/14/23 03:41 PT/INR, D-dimer PT 10.2 sec (9.0-12.0) 01/13/23 19:15 INR 1.0 (<1.2) 01/13/23 19:15 D-Dimer 1.56 mg/L FEU (<0.60) H 01/13/23 15:15 Abnormal lab findings: Abnormal Labs 01/13/23 01/13/23 01/13/23 15:15 15:15 15:15 Neutrophils # 7.9 H Lymphocytes # 0.9 L APTT D-Dimer 1.56 H Sodium Creatinine 0.57 L Glucose 102 H POC Glucose (mg/dL) Albumin 3.4 L 01/13/23 01/14/23 01/14/23 21:31 02:02 02:04 Neutrophils # 8.6 H Lymphocytes # 0.3 L APTT 54.3 H D-Dimer Sodium Creatinine Glucose POC Glucose (mg/dL) 132 H Albumin 01/14/23 01/14/23 03:41 03:41 Neutrophils # 8.8 H Lymphocytes # 0.4 L APTT D-Dimer Sodium 136 L Creatinine 0.49 L Glucose 130 H POC Glucose (mg/dL) Albumin - Diagnostic Findings Chest x-ray: image reviewed CT scan - chest: image reviewed Assessment and Plan Plan: Right lower lobe pneumonia with a small right-sided pleural effusion, high suspicion for an underlying infectious process Bilateral pulmonary embolism and the patient has small filling defects in lower lobe pulmonary artery branches, a recurrent event as the patient had a previous pulmonary embolism more than one year ago and the patient is currently on IV heparin Hemoptysis secondary to above History of a 14 mm right lower lobe pulmonary nodule, highly suspicious for malignancy. Biopsy has been done and it was nondiagnostic and the patient was treated with radiosurgery and a follow-up CAT scan of the chest from August 2022 showed interval reduction in the size of the nodule which is measuring 13 mm in size. 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 May be some interval increase in size compared to the CAT scan of August 2021. A chronic clot the dissected aneurysm cannot be completely ruled out. Clearance was obtained from cardiothoracic surgery to continue the IV heparin Acute COPD exacerbation secondary to above. The patient has severe COPD with FEV1 of 42% of predicted Shortness of breath secondary to above Previous history of pulmonary embolism more than a year ago History of smoking. History of alcohol drinking Hypertension BPH Plan Continue IV heparin Cover the patient with accommodation Zosyn and Levaquin for an underlying right lower lobe pneumonia Continue bronchodilators Continue IV Solu-Medrol Titrate oxygen flow to maintain saturation above 90% IV fluids at 50 mL an hour This is no peripheral blood pressure control at a dose of 40 mg by mouth twice a day. We'll try to keep the systolic blood pressure under 1:30 Check pro calcitonin level Obtain Doppler of the lower extremities Keep the patient ICU We'll continue to follow
--- NOTE | 2023-01-14 12:31 | US ---
EXAMINATION TYPE: US venous doppler duplex LE DATE OF EXAM: 01/14/2023 12:09 PM COMPARISON: NONE CLINICAL INDICATION: Male, 72 years old with history of possible blood clot; Pulmonary embolism seen on CT yesterday. Patient has had PE's in the past SIDE PERFORMED: Bilateral TECHNIQUE: The lower extremity deep venous system is examined utilizing real time linear array sonog bret with graded compression, doppler sonography and color-flow sonography. VESSELS IMAGED: Common Femoral Vein Deep Femoral Vein Greater Saphenous Vein * Femoral Vein Popliteal Vein Small Saphenous Vein * Proximal Calf Veins (* superficial vessels) Right Leg: Negative for DVT Left Leg: Negative for DVT S[employer]ocks Pulper notes: rouleaux flow noted bilaterally in popliteal veins, however all veins compressed a nd filled on color doppler Incidental finding: significant atherosclerotic plaque in bilateral femoral arteries IMPRESSION: 1. No sonographic evidence for DVT within the bilateral lower extremities imaged from the groin to th e upper calves. 2. Incidental slow flow noted in the bilateral popliteal veins. 3. Prominent atherosclerotic calcifications within the bilateral femoral arteries.
[2023-01-14] MEDS: HEPARIN SOD,PORK IN 0.45% NACL 25,000 UNIT in 0.45% NACL 1 250ML.BAG IV SCH (12:36)
[2023-01-14] MEDS: PIPERACILLIN-TAZOBACTAM 3.375 GM in SODIUM CHLORIDE 0.9% 100 ML IVPB SCH ×2 (12:39→20:42)
[2023-01-14] MEDS: METOPROLOL SUCCINATE (ER) 25 MG TAB.ER.24H PO SCH (14:46)
--- NOTE | 2023-01-14 17:58 | CA ---
Transthoracic Echo Report Name: Jesus Turner Age: 72 Gender: M : 1950 Exam Date: 01/14/2023 07:45 Exam Location: [place] Echo Ht (in): 68 Wt (lb): 152 Ordering Physician: Mustapha Melvin MD Attending/Referring Phys: Environmental Geologist Annamaria Bethea [facility] Procedure CPT: Indications: PE Cardiac Hx: Technical Quality: Fair Contrast 1: Total Dose (mL): Contrast 2: Total Dose (mL): MEASUREMENTS (Male / Female) Normal Values 2D ECHO LV Diastolic Diameter PLAX 4.1 cm 4.2 - 5.9 / 3.9 - 5.3 cm LV Systolic Diameter PLAX 2.6 cm IVS Diastolic Thickness 0.8 cm 0.6 - 1.0 / 0.6 - 0.9 cm LVPW Diastolic Thickness 0.8 cm 0.6 - 1.0 / 0.6 - 0.9 cm LV Relative Wall Thickness 0.4 RV Internal Dim ED PLAX 3.3 cm LVOT Diameter 2.0 cm M-MODE Aortic Root Diameter MM 3.4 cm LA Systolic Diameter MM 3.9 cm LA Ao Ratio MM 1.1 AV Cusp Separation MM 1.6 cm DOPPLER AV Peak Velocity 122.1 cm/s AV Peak Gradient 6.0 mmHg AV Mean Velocity 89.5 cm/s AV Mean Gradient 3.5 mmHg AV Velocity Time Integral 26.0 cm LVOT Peak Velocity 100.0 cm/s LVOT Peak Gradient 4.0 mmHg LVOT Velocity Time Integral 24.0 cm LVOT Stroke Volume 74.0 cm??? LVOT Stroke Volume Index 40.7 ml/m??? LVOT Cardiac Index 2922.5 cm???/min???m??? AV Area Cont Eq vti 2.8 cm??? AV Area Cont Eq pk 2.5 cm??? Mitral E Point Velocity 64.1 cm/s Mitral A Point Velocity 91.1 cm/s Mitral E to A Ratio 0.7 MV Deceleration Time 157.2 ms LV E' Lateral Velocity 7.7 cm/s Mitral E to LV E' Lateral Ratio 8.3 LV E' Septal Velocity 8.8 cm/s Mitral E to LV E' Septal Ratio 7.3 Right Atrial Pressure 8.0 mmHg FINDINGS Left Ventricle Normal Left ventricular size, wall thickness, systolic function with no obvious regional wall motion abnormalities. Left ventricular ejection fraction is estimated at 55-60%. Right Ventricle Mild right ventricular dilatation. Unable to estimate the right ventricular systolic pressure. Mildly reduced right ventricular global systolic function. Right Atrium Mild right atrial dilatation. Left Atrium Normal left atrial size. Mitral Valve Structurally normal mitral valve. No mitral regurgitation. Aortic Valve Thickened trileaflet aortic valve. No aortic regurgitation. Tricuspid Valve Structurally normal tricuspid valve. No tricuspid regurgitation. Pulmonic Valve Structurally normal pulmonic valve. No pulmonic regurgitation. Pericardium No pericardial effusion. Aorta Normal size aortic root. CONCLUSIONS Left ventricular ejection fraction is estimated at 55-60%. No obvious regional wall motion abnormalities. Mild right ventricular dilatation. No significant valvular disease Previewed by: Dr Salomon Lopez (Electronically Signed) Final Date: 14 January 2023 17:57
[2023-01-14] MEDS: LEVOFLOXACIN 750MG-D5W PMX 750 MG in DEXTROSE/WATER 1 150ML.BAG IVPB SCH (18:05)
[2023-01-14] MEDS: ATORVASTATIN 40 MG TAB PO SCH (20:41)
--- NOTE | 2023-01-14 21:43 | P.CRDCN ---
History of Present Illness Consult date: 01/14/23 History of present illness: HISTORY OF PRESENTING ILLNESS 72-year-old with past medical history of COPD. He was being evaluated for right lower lobe lung mass. He also has prior history of pulmonary embolism without DVT. Patient was previously on anticoagulation but stopped taking it after 1 unit of pulmonary embolism as his co-pays for her Eliquis were very high. This time he presented with symptoms of worsening shortness of breath and hemoptysis. On admission his CTA showed evidence of bilateral pulmonary embolism without RV strain. His CT also showed evidence of mural thrombus in proximal descending thoracic aorta. Blood pressure 135/67 mmHg, heart rate 72, Hemoglobin is stable, renal function is normal limits EKG shows sinus rhythm with no significant ST-T wave changes REVIEW OF SYSTEMS 14 point review of system is negative except what is mentioned above in HPI. PHYSICAL EXAMINATION Vital signs reviewed. Head: Normocephalic. Eyes: Sclerae nonicteric. Neck: Brisk carotid upstroke, no jugular venous distention. Lungs: Clear to auscultation. Heart: Regular rate and rhythm, S1-S2, no S3, no murmur or rub. Abdomen: Soft nontender, positive bowel sounds no organomegaly. Extremities: No edema, intact distal pulses. ASSESSMENT Acute bilateral PE with no RV strain Prior history of DVT not on anticoagulation due to high co-pays Essential hypertension COPD History of smoking History of alcohol BPH Pulmonary nodule PLAN Add atorvastatin 40 mg due to atherosclerosis in the aorta Continue lisinopril 40 mg twice a day Add Procardia XL 30 mg daily. Her blood pressures I, feel free to increase the dose Add metoprolol succinate 25 mg daily Echocardiogram was reviewed shows EF of 55%, No obvious regional wall motion abnormality, mild RV dilatation Past Medical History Past Medical History: Asthma, Cancer, COPD, GERD/Reflux, Hearing Disorder / Deafness, Hypertension, Prostate Disorder, Pulmonary Embolus (PE) Additional Past Medical History / Comment(s): Gout. 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 Colonoscopies, maulik cataracts, Past Anesthesia/Blood Transfusion Reactions: No Reported Reaction Past Psychological History: Anxiety Smoking Status: Current every day smoker Past Alcohol Use History: Daily Additional Past Alcohol Use History / Comment(s): Admits to drinking 4-5 beers daily Past Drug Use History: None Reported - Past Family History Mother Family Medical History: No Reported History Brother(s) Additional Family Medical History / Comment(s): brain aneurysm Medications and Allergies Home Medications Medication Instructions Recorded Confirmed Type RX: Enalapril [Vasotec] 20 mg PO BID 01/21/20 01/13/23 History RX: allopurinoL [Zyloprim] 100 mg PO DAILY 01/21/20 01/13/23 History RX: Tamsulosin [Flomax] 0.8 mg PO DAILY 09/18/21 01/13/23 History Albuterol Nebulized [Ventolin 2.5 mg INHALATION RT-QID 03/03/22 01/13/23 History Nebulized] RX: Baclofen 10 mg PO TID PRN #12 tab 01/11/23 01/13/23 Rx RX: Ibuprofen [Motrin] 600 mg PO Q8HR PRN #30 tab 01/11/23 01/13/23 Rx ALPRAZolam [Xanax] 0.5 mg PO TID PRN 01/13/23 01/13/23 History Albuterol Inhaler [Ventolin Hfa 2 puff INHALATION RT-Q6H PRN 01/13/23 01/13/23 History Inhaler] Pantoprazole [Protonix] 40 mg PO AC-SUPPER 01/13/23 01/13/23 History Allergies Allergy/AdvReac Type Severity Reaction Status Date / Time cephalexin [From Keflex] AdvReac vertigo Verified 01/13/23 20:25 Physical Exam Vitals: Vital Signs Temp Pulse Resp BP Pulse Ox 01/14/23 21:00 74 20 132/70 95 01/14/23 20:00 98.3 F 76 24 122/68 96 01/14/23 19:00 81 20 107/58 96 01/14/23 18:00 84 28 H 111/58 94 L 01/14/23 17:00 87 28 H 114/63 91 L 01/14/23 16:19 80 01/14/23 16:09 78 01/14/23 16:00 79 21 116/60 94 L 01/14/23 15:00 84 31 H 119/68 95 08/26/23 14:00 87 21 122/83 95 01/14/23 13:00 84 20 142/79 90 L 01/14/23 12:00 97.6 F 74 17 127/69 95 01/14/23 11:00 72 24 135/67 97 01/14/23 10:00 80 22 134/79 96 01/14/23 09:00 77 21 144/79 96 01/14/23 08:55 88 01/14/23 08:43 85 01/14/23 08:00 98.1 F 81 20 140/77 94 L 01/14/23 07:00 79 22 138/73 97 01/14/23 06:00 73 23 146/77 97 01/14/23 05:00 75 22 134/71 97 01/14/23 04:00 98.4 F 76 25 H 138/73 97 01/14/23 03:00 79 25 H 128/69 95 01/14/23 02:00 79 26 H 135/72 97 01/14/23 01:00 80 25 H 132/76 96 01/14/23 00:00 98 F 86 24 139/73 95 01/13/23 23:00 96 24 164/72 94 L 01/13/23 22:00 104 H 20 115/65 92 L Intake and Output 01/14/23 01/14/23 01/14/23 06:59 14:59 22:59 Intake Total 400 607.661 330 Output Total 405 300 825 Balance -5 307.661 -495 Intake: IV 400 400 330 0.9 80 Levofloxacin 750Mg-D5w 150 Pmx 750 mg In Dextrose/ Water 1 150ml.bag @ 100 mls/hr IVPB ONCE [facility] Rx#: [id number] Piperacillin-Tazobactam 3 100 100 .375 gm In Sodium Chloride 0.9% 100 ml @ 25 mls/hr IVPB Q8H [facility] Rx#: [id number] Sodium Chloride 0.9% 1, 400 300 000 ml @ 50 mls/hr IV . Q20H [facility] Rx#:[id number] Intake, IV Titration 207.661 Amount Heparin Sod,Pork in 0.45% 207.661 NaCl 25,000 unit In 0.45 % NaCl 1 250ml.bag @ 18 UNITS/KG/HR 12.41 mls/hr IV .Q20H9M [facility] Rx#: [id number] Output: Urine 405 300 825 Other: Voiding Method External Catheter External Catheter External Catheter # Voids 0 0 0 # Bowel Movements 1 Weight 70.3 kg Results 01/14/23 03:41 01/14/23 03:41 Coagulation 01/14/23 Range/Units 02:02 APTT 54.3 H (22.0-30.0) sec CBC 01/14/23 01/14/23 Range/Units 02:04 03:41 WBC 9.2 9.4 (3.8-10.6) k/uL RBC 5.03 5.10 (4.30-5.90) m/uL Hgb 15.2 15.9 (13.0-17.5) gm/dL Hct 47.0 48.3 (39.0-53.0) % Plt Count 150 158 (150-450) k/uL Comprehensive Metabolic Panel 01/14/23 Range/Units 03:41 Sodium 136 L (137-145) mmol/L Potassium 3.8 (3.5-5.1) mmol/L Chloride 102 (98-107) mmol/L Carbon Dioxide 24 (22-30) mmol/L BUN 10 (9-20) mg/dL Creatinine 0.49 L (0.66-1.25) mg/dL Glucose 130 H (74-99) mg/dL Calcium 8.7 (8.4-10.2) mg/dL Current Medications Generic Name Dose Route Start Last Admin Trade Name Freq PRN Reason Stop Dose Admin Albuterol Sulfate 2.5 mg 01/14/23 08:00 01/14/23 16:08 Albuterol Nebulized 2.5 Mg/3 Ml INHALATION 2.5 mg RT-QID JOCELYN Administration Albuterol/Ipratropium 3 ml 01/14/23 00:18 Ipratropium-Albuterol 3 Ml Neb INHALATION RT-Q4H PRN Shortness Of Breath Or Wheezing Alprazolam 0.5 mg 01/13/23 23:12 01/13/23 23:48 Alprazolam 0.5 Mg Tab PO 0.5 mg BID PRN Administration Anxiety Atorvastatin Calcium 40 mg 01/14/23 21:00 01/14/23 20:41 Atorvastatin 40 Mg Tab PO 40 mg HS JOCELYN Administration Heparin Sodium (Porcine) 0 unit 01/13/23 18:40 Heparin Sodium 1,000 Un/Ml (10ml Vl) IV PER PROTOCOL PRN Low PTT Protocol Heparin Sodium/Sodium Chloride 250 mls @ 12.41 mls/hr 01/13/23 18:45 01/14/23 12:36 25,000 unit/ Sodium Chloride IV 18 units/kg/hr .Q20H9M JOCELYN 12.41 mls/hr Administration Protocol 18 UNITS/KG/HR Piperacillin Sod/Tazobactam 100 mls @ 25 mls/hr 01/14/23 12:00 01/14/23 20:42 Sod 3.375 gm/ Sodium Chloride IVPB 25 mls/hr Q8H [facility] Administration Protocol Levofloxacin 750 mg/ IV 150 mls @ 100 mls/hr 01/14/23 18:00 01/14/23 18:05 Solution IVPB 100 mls/hr Q24H [facility] Administration Protocol Lidocaine 1 patch 01/13/23 21:15 01/14/23 08:37 Lidocaine 5% Patch TOPICAL 1 patch DAILY JOCELYN Administration Protocol Lisinopril 40 mg 01/14/23 09:30 01/14/23 20:41 Lisinopril 20 Mg Tab PO 40 mg BID JOCELYN Administration Lorazepam 1 mg 01/14/23 07:01 Lorazepam 1 Mg Tab PO Q4HR PRN Ci[place] 6 To 7 Lorazepam 2 mg 01/14/23 07:01 Lorazepam 1 Mg Tab PO Q2HR PRN Ciwa 10 or greater Lorazepam 0.5 mg 01/14/23 07:01 Lorazepam 0.5 Mg Tab PO Q4HR PRN [place] 4 To 5 Lorazepam 2 mg 01/14/23 07:01 Lorazepam 1 Mg Tab PO Q3HR PRN Ciwa 8 To 9 Methylprednisolone Sodium Succinate 40 mg 01/13/23 21:00 01/14/23 20:41 Methylprednisolone Sod Succi 40 Mg/Ml 1 Ml Vial IV 40 mg Q12HR JOCELYN Administration Metoprolol Succinate 25 mg 01/14/23 13:45 01/14/23 14:46 Metoprolol Succinate (Er) 25 Mg Tab.Er.24h PO 25 mg DAILY JOCELYN Administration Miscellaneous Information 1 each 01/14/23 05:33 Potassium Replacement Protocol 1 Each Misc MISCELLANE DAILY PRN Per Protocol Protocol Naloxone HCl 0.2 mg 01/13/23 19:00 Naloxone 0.4 Mg/Ml 1 Ml Vial IV Q2M PRN Opioid Reversal Nifedipine 30 mg 01/15/23 09:00 Nifedipine Xl 30 Mg Tab.Er.24 PO DAILY JOCELYN Pantoprazole Sodium 40 mg 01/14/23 09:00 01/14/23 20:42 Pantoprazole 40 Mg/10 Ml Vial IVP 40 mg BID JOCELYN Administration Tamsulosin HCl 0.8 mg 01/14/23 09:00 01/14/23 08:38 Tamsulosin 0.4 Mg Cap.Er.24h PO 0.8 mg DAILY JOCELYN Administration Thiamine HCl 100 mg 01/14/23 09:00 01/14/23 08:38 Thiamine 100 Mg/Ml 2 Ml Vial IVP 100 mg DAILY JOCELYN Administration Intake and Output 01/14/23 01/14/23 01/14/23 06:59 14:59 22:59 Intake Total 400 607.661 330 Output Total 405 300 825 Balance -5 307.661 -495 Intake: IV 400 400 330 0.9 80 Levofloxacin 750Mg-D5w 150 Pmx 750 mg In Dextrose/ Water 1 150ml.bag @ 100 mls/hr IVPB ONCE [facility] Rx#: [id number] Piperacillin-Tazobactam 3 100 100 .375 gm In Sodium Chloride 0.9% 100 ml @ 25 mls/hr IVPB Q8H [facility] Rx#: [id number] Sodium Chloride 0.9% 1, 400 300 000 ml @ 50 mls/hr IV . Q20H [facility] Rx#:[id number] Intake, IV Titration 207.661 Amount Heparin Sod,Pork in 0.45% 207.661 NaCl 25,000 unit In 0.45 % NaCl 1 250ml.bag @ 18 UNITS/KG/HR 12.41 mls/hr IV .Q20H9M [facility] Rx#: [id number] Output: Urine 405 300 825 Other: Voiding Method External Catheter External Catheter External Catheter # Voids 0 0 0 # Bowel Movements 1 Weight 70.3 kg 01/14/23 03:41 01/14/23 03:41
[2023-01-14] MEDS: ALPRAZolam 0.5 MG TAB PO PRN (23:34)
[2023-01-15 02:28] LABS: HCT 44.7 % (39.0-53.0); HGB 14.4 gm/dL (13.0-17.5); MCH 30.5 pg (25.0-35.0); MCHC 32.3 g/dL (31.0-37.0); MCV 94.6 fL (80.0-100.0); Mean Platelet Volume 7.7; Platelet Count 178 k/uL (150-450); RBC 4.73 m/uL (4.30-5.90); RDW 13.5 % (11.5-15.5); WBC 12.4 k/uL (3.8-10.6)
[2023-01-15 02:54] LABS: African American GFR (CKD) >90 (>60 ml/min/1.73 sqM); Anion Gap 7 mmol/L; Blood Urea Nitrogen 14 mg/dL (9-20); Carbon Dioxide 27 mmol/L (22-30); Chloride 104 mmol/L (98-107); Glucose 149 mg/dL (74-99); Non-African American GFR(CKD) >90 (>60 ml/min/1.73 sqM); Sodium 138 mmol/L (137-145)
[2023-01-15] MEDS: PIPERACILLIN-TAZOBACTAM 3.375 GM in SODIUM CHLORIDE 0.9% 100 ML IVPB SCH ×3 (04:17→20:43)
[2023-01-15] MEDS ORDERED: POTASSIUM CHLORIDE ER 20 MEQ TAB.ER PO SCH (06:00)
--- NOTE | 2023-01-15 07:27 | P.PN ---
Subjective This is a pleasant 72 years old male with past medical history of Asthma, COPD, GERD/Reflux, Hearing Disorder / Deafness, Hypertension, Pulmonary Embolus about 1 year ago., He is a patient of Dr. Au with covering over the weekend. Patient presents because of coughing up blood. Total about 2 days ago for right upper quadrant abdominal pain of 2 days' duration the plaque sharply agrees with deep breathing and coughing about 7-8/10 in severity. Associated with some tenderness in the right lower ribs laterally (mild) suspected for acute costochondritis is discharged home on ibuprofen and muscle relaxant and to follow up with his PCP Dr. Au which he saw his nurse practitioner on and she gave him cough medicine as he was coughing a lot. The workup yesterday with coughing up of blood and he got concerned and came to the emergency room. Patient has undergone dyspnea for his COPD, he cannot tell if it is worse over the last 2 days or not because he is taking and COPD medicine as he states. He denies any chest pain other than above. And no dizziness, weakness numbness. No other specific complaints. Patient smokes about 1.5 pack per day and he was counseled to quit but he does not want to quit and he tried nicotine patch and did not report. He drinks 3-5 beers daily. He grew marijuana before but he did not like it. Patient has history of colon cancer he got chemoradiotherapy before. He got radiation therapy ( with Dr. Gonzalez last yeae4 ( to the chest?). He was followed up with Dr. Goznalez and Dr. Green regarding his history of pulmonary embolism, Eliquis was held then. He says it was expensive for him. His vitals looks stable and he is saturating 97% and a 3 L. CBC, BMP are unremarkable. Versus nondetected. CTA of the chest: Bilateral lower lobe pulmonary emboli with no evidence of right heart strains. Consolidation changes in the right middle lobe and interstitial changes in the right lower lung suggestive of posttreatment changes [place] mural density suggestive thrombus in the proximal descending thoracic aorta has increased from prior on 09/08/2022 08.27.23 Patient remains in the ICU, clinically at bedside to look similar to yesterday, he looks somewhat tired, slightly tachypneic with oxygen requirements at 3 L/m. Patient does not complain from significant dyspnea but from sniffing difficulty His right upper quadrant abdominal pain has resolved. No other new complaints. Patient is currently on heparin drip, IV Solu-Medrol 40 mg, also antibiotics for adequate with Zosyn and Levaquin 5 pulmonary team for suspicion of the right lower lobe pneumonia rather than scar tissue or previous radiation therapy. Blood pressure is better controlled, is on home dose of lisinopril, cardiology team added metoprolol and nifedipine 30 mg. 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 Review of systems CONSTITUTIONAL: No fever, no malaise, no fatigue. HEENT: No recent visual problems or hearing problems. Denied any sore throat. CARDIOVASCULAR: No orthopnea, PND, no palpitations, no syncope. GASTROINTESTINAL: No diarrhea, no nausea, no vomiting, no abdominal pain. Normoactive bowel sounds. NEUROLOGICAL: No headaches, no weakness, no numbness. Active Medications Generic Name Dose Route Start Last Admin Trade Name Freq PRN Reason Stop Dose Admin Albuterol Sulfate 2.5 mg 01/14/23 08:00 01/14/23 21:49 Albuterol Nebulized 2.5 Mg/3 Ml INHALATION 2.5 mg RT-QID JOCELYN Administration Albuterol/Ipratropium 3 ml 01/14/23 00:18 Ipratropium-Albuterol 3 Ml Neb INHALATION RT-Q4H PRN Shortness Of Breath Or Wheezing Alprazolam 0.5 mg 01/13/23 23:12 01/14/23 23:34 Alprazolam 0.5 Mg Tab PO 0.5 mg BID PRN Administration Anxiety Atorvastatin Calcium 40 mg 01/14/23 21:00 01/14/23 20:41 Atorvastatin 40 Mg Tab PO 40 mg HS JOCELYN Administration Heparin Sodium (Porcine) 0 unit 01/13/23 18:40 Heparin Sodium 1,000 Un/Ml (10ml Vl) IV PER PROTOCOL PRN Low PTT Protocol Heparin Sodium/Sodium Chloride 250 mls @ 12.41 mls/hr 01/13/23 18:45 01/14/23 12:36 25,000 unit/ Sodium Chloride IV 18 units/kg/hr .Q20H9M JOCELYN 12.41 mls/hr Administration Protocol 18 UNITS/KG/HR Piperacillin Sod/Tazobactam 100 mls @ 25 mls/hr 01/14/23 12:00 01/15/23 04:17 Sod 3.375 gm/ Sodium Chloride IVPB 25 mls/hr Q8H JOCELYN Administration Protocol Levofloxacin 750 mg/ IV 150 mls @ 100 mls/hr 01/14/23 18:00 01/14/23 18:05 Solution IVPB 100 mls/hr Q24H JOCELYN Administration Protocol Lidocaine 1 patch 01/13/23 21:15 01/14/23 08:37 Lidocaine 5% Patch TOPICAL 1 patch DAILY JOCELYN Administration Protocol Lisinopril 40 mg 01/14/23 09:30 01/14/23 20:41 Lisinopril 20 Mg Tab PO 40 mg BID JOCELYN Administration Lorazepam 1 mg 01/14/23 07:01 Lorazepam 1 Mg Tab PO Q4HR PRN [place] 6 To 7 Lorazepam 2 mg 01/14/23 07:01 Lorazepam 1 Mg Tab PO Q2HR PRN [place] 10 or greater Lorazepam 0.5 mg 01/14/23 07:01 Lorazepam 0.5 Mg Tab PO Q4HR PRN [place] 4 To 5 Lorazepam 2 mg 01/14/23 07:01 Lorazepam 1 Mg Tab PO Q3HR PRN [place] 8 To 9 Methylprednisolone Sodium Succinate 40 mg 01/13/23 21:00 01/14/23 20:41 Methylprednisolone Sod Succi 40 Mg/Ml 1 Ml Vial IV 40 mg Q12HR JOCELYN Administration Metoprolol Succinate 25 mg 01/14/23 13:45 01/14/23 14:46 Metoprolol Succinate (Er) 25 Mg Tab.Er.24h PO 25 mg DAILY JOCELYN Administration Miscellaneous Information 1 each 01/14/23 05:33 Potassium Replacement Protocol 1 Each Misc MISCELLANE DAILY PRN Per Protocol Protocol Naloxone HCl 0.2 mg 01/13/23 19:00 Naloxone 0.4 Mg/Ml 1 Ml Vial IV Q2M PRN Opioid Reversal Nifedipine 30 mg 01/15/23 09:00 Nifedipine Xl 30 Mg Tab.Er.24 PO DAILY [facility] Pantoprazole Sodium 40 mg 01/14/23 09:00 01/14/23 20:42 Pantoprazole 40 Mg/10 Ml Vial IVP 40 mg BID JOCELYN Administration Tamsulosin HCl 0.8 mg 01/14/23 09:00 01/14/23 08:38 Tamsulosin 0.4 Mg Cap.Er.24h PO 0.8 mg DAILY JOCELYN Administration Thiamine HCl 100 mg 01/14/23 09:00 01/14/23 08:38 Thiamine 100 Mg/Ml 2 Ml Vial IVP 100 mg DAILY JOCELYN Administration Objective - Vital Signs Vital signs: Vital Signs Temp 97.5 F L 01/15/23 04:00 Pulse 62 01/15/23 07:00 Resp 17 01/15/23 07:00 BP 134/66 01/15/23 07:00 Pulse Ox 95 01/15/23 07:00 FiO2 28 01/13/23 20:25 Intake & Output 01/14/23 01/15/23 01/15/23 18:59 06:59 18:59 Intake Total 797.661 340 Output Total 700 925 Balance 97.661 -585 Weight 69.6 kg Intake: IV 590 340 0.9 40 240 Levofloxacin 750Mg-D5w 150 Pmx 750 mg In Dextrose/ Water 1 150ml.bag @ 100 mls/hr IVPB ONCE [facility] Rx#: [id number] Piperacillin-Tazobactam 3 100 100 .375 gm In Sodium Chloride 0.9% 100 ml @ 25 mls/hr IVPB Q8H [facility] Rx#: [id number] Sodium Chloride 0.9% 1, 300 000 ml @ 50 mls/hr IV . Q20H [facility] Rx#:[id number] Intake, IV Titration 207.661 Amount Heparin Sod,Pork in 0.45% 207.661 NaCl 25,000 unit In 0.45 % NaCl 1 250ml.bag @ 18 UNITS/KG/HR 12.41 mls/hr IV .Q20H9M [facility] Rx#: [id number] Output: Urine 700 925 Other: Voiding Method External Catheter External Catheter # Voids 0 0 # Bowel Movements 1 - Exam GENERAL: The patient is alert and oriented x3, not in any acute distress. Well developed, well nourished. HEENT: Pupils are round and equally reacting to light. EOMI. No scleral icterus. No conjunctival pallor. Normocephalic, atraumatic. No pharyngeal erythema. No thyromegaly. CARDIOVASCULAR: S1 and S2 present. No murmurs, rubs, or gallops. -PULMONARY: Chest is clear to auscultation, no wheezing , no crackles. on oxygen 3 L/m -ABDOMEN: Soft, nontender, nondistended, normoactive bowel sounds. No palpable organomegaly. Has external urinary catheter wit good yellow urine outputh MUSCULOSKELETAL: No joint swelling or deformity. EXTREMITIES: No cyanosis, clubbing, or pedal edema. NEUROLOGICAL: Gross neurological examination did not reveal any focal deficits. SKIN: No rashes. no petechiae. - Labs CBC & Chem 7: 01/15/23 01:59 01/15/23 01:59 Labs: Abnormal Lab Results - Last 24 Hours (Table) 01/15/23 01/15/23 01/15/23 Range/Units 01:59 01:59 01:59 WBC 12.4 H (3.8-10.6) k/uL APTT 56.1 H (22.0-30.0) sec Creatinine 0.54 L (0.66-1.25) mg/dL Glucose 149 H (74-99) mg/dL Assessment and Plan Assessment: Acute bilateral pulmonary embolism nicotine dependence Alcohol use disorder at-risk of alcohol withdrawal Right lower lobe posttreatment changes, most likely related to his radiotherapy he got last year. Pneumonia is suspected by pulmonary team and placement an tibiotic worsening thrombosis in the proximal descending thoracic aorta has increased from prior on 09/08/2022 t not excluded History of esophageal thickening Asthma/COPD History of GERD Hypertension Hearing difficulty history of pulmonary embolism Plan: Continue with heparin drip Continue with ampicillin Medrol 40 mg twice daily Continue with antibiotics Zosyn and Levaquin. I'll recommendation of pulmonary team Surgical consults on the case including pulmonary, cardiology, vascular surgery Monitor blood pressure closely Labs and medication were reviewed.. Continue same treatment. Continue with symptomatic treatment. Resume home medication. Monitor labs and vitals. DVT and GI prophylaxis. Further recommendations as per clinical course of the patient DVT prophylaxis: heparin GI Prophylaxis: Ppi PT/OT: Pending Prognosis is guarded
[2023-01-15] MEDS: ALBUTEROL NEBULIZED 2.5 MG/3 ML INHALATION SCH ×4 (07:51→20:13)
[2023-01-15 08:07] LABS: Basophils % (A) 0 %; Eosinophils # (A) 0.1 k/uL (0-0.7); Eosinophils % (A) 1 %; Lymphocytes # (A) 0.5 k/uL (1.0-4.8); Lymphocytes % (A) 4 %; MCH 30.8 pg (25.0-35.0); MCHC 32.6 g/dL (31.0-37.0); MCV 94.5 fL (80.0-100.0); Mean Platelet Volume 7.8; Monocytes # (A) 0.4 k/uL (0-1.0); Monocytes % (A) 4 %; Neutrophils # (A) 11.3 k/uL (1.3-7.7); Neutrophils % (A) 91 %; Platelet Count 196 k/uL (150-450); RBC 4.86 m/uL (4.30-5.90); RDW 13.4 % (11.5-15.5); WBC 12.5 k/uL (3.8-10.6)
[2023-01-15 08:32] LABS: Sodium 137 mmol/L (137-145)
[2023-01-15 08:33] LABS: African American GFR (CKD) >90 (>60 ml/min/1.73 sqM); Anion Gap 7 mmol/L; Blood Urea Nitrogen 14 mg/dL (9-20); Calcium 8.8 mg/dL (8.4-10.2); Carbon Dioxide 26 mmol/L (22-30); Chloride 104 mmol/L (98-107); Glucose 150 mg/dL (74-99); Non-African American GFR(CKD) >90 (>60 ml/min/1.73 sqM)
[2023-01-15] MEDS: METOPROLOL SUCCINATE (ER) 25 MG TAB.ER.24H PO SCH (08:41)
[2023-01-15] MEDS: LIDOCAINE 5% PATCH TOPICAL SCH (08:41)
[2023-01-15] MEDS: TAMSULOSIN 0.4 MG CAP.ER.24H PO SCH (08:41)
[2023-01-15] MEDS: lisinopriL 20 MG TAB PO SCH ×2 (08:41→23:06)
[2023-01-15] MEDS: NIFEdipine XL 30 MG TAB.ER.24 PO SCH (08:41)
[2023-01-15] MEDS: PANTOPRAZOLE 40 MG/10 ML VIAL IVP SCH ×2 (08:42→20:43)
[2023-01-15] MEDS: methylPREDNISolone SOD SUCCI 40 MG/ML 1 ML VIAL IV SCH ×2 (08:42→20:43)
[2023-01-15] MEDS: THIAMINE 100 MG/ML 2 ML VIAL IVP SCH (08:50)
[2023-01-15] MEDS: HEPARIN SOD,PORK IN 0.45% NACL 25,000 UNIT in 0.45% NACL 1 250ML.BAG IV SCH (08:54)
[2023-01-15 09:12] LABS: Potassium 4.1 mmol/L (3.5-5.1)
--- NOTE | 2023-01-15 09:33 | P.PN ---
Subjective Progress Note Date: 01/15/23 72-year-old male patient is known to have advanced COPD with an FEV1 of 42% of predicted. He is also known to have a right lower lobe mass, bronchoscopy yielded no definitive diagnosis, yet based on the high suspicion for malignancy, the patient was given radiosurgery and most recent CAT scan of the chest that was done in August 2021 showed stable right lower lobe mass and has dropped in size down to 13 mm. As such, there was interval reduction in size of the right lower lobe mass. Note that the patient in addition to COPD and lung mass, as previous history of left lower lobe pulmonary embolism without any DVT. Patient was treated with anticoagulation and subsequent anticoagulation was discont inued. He was unable to afford the cost of Eliquis. He has history of smoking, hypertension and gout in addition to COPD. The patient presented to the emergency department yesterday because of increased cough and congestion worsening shortness of breath. He was having pain along the right side of his chest. He was given a CT angiogram that showed bilateral lower lobe pulmonary emboli without any RV strain pattern. There was also a consolidation of the right lower lobe, right-sided pleural effusion in addition to a mural thrombus in the proximal descending thoracic aorta. His d-dimer was at 1.56. Patient was started on IV heparin. A cardiothoracic consultation was also obtained regarding this mural thrombus. Note that this was a concentric mural density in the proximal descending thoracic aorta that was present and apparently tested somewhat decreased in size compared to the previous CAT scan on 09/08/2022. A thrombosed dissection cannot be completely ruled out. His blood pressure is stable and is currently on his RAINE inhibitor is taking lisinopril 40 mg twice a day. He is running a BP of 135/67. Heart rate is 72. Is also on oxygen 2 L/m nasal cannula. 01/15/2023, the patient is much more comfortable. No hemoptysis. No chest pain. Less short of breath compared to yesterday. No fever. No chills. He is currently on IV heparin. His on broad-spectrum antibiotics and is also on a combination of Zosyn and Levaquin. No DVTs in his lower extremities. Echocardi ogram was also done and the patient has a preserved LV function without any significant pulmonary hypertension or valvular heart disease. The patient has an ejection fraction of 55-60%. In terms of his labs, the patient has a biliary scan of 12.5, hemoglobin was 15 and a platelet count of 196. PTT therapeutic. BUN is 40 with a creatinine of 0.5. Sodium level is at 137. Calcium levels of 8.8. He remains on oxygen at 2 L per minute nasal cannula. Objective - Vital Signs Vital signs: Vital Signs Temp 97.4 F L 01/15/23 08:00 Pulse 74 01/15/23 09:00 Resp 19 01/15/23 09:00 BP 120/76 01/15/23 09:00 Pulse Ox 91 L 01/15/23 09:00 FiO2 28 01/13/23 20:25 Intake & Output 01/14/23 01/15/23 01/15/23 18:59 06:59 18:59 Intake Total 797.661 340 290 Output Total 700 925 Balance 97.661 -585 290 Weight 69.6 kg Intake: IV 590 340 40 0.9 40 240 40 Levofloxacin 750Mg-D5w 150 Pmx 750 mg In Dextrose/ Water 1 150ml.bag @ 100 mls/hr IVPB ONCE [facility] Rx#: [id number] Piperacillin-Tazobactam 3 100 100 .375 gm In Sodium Chloride 0.9% 100 ml @ 25 mls/hr IVPB Q8H [facility] Rx#: [id number] Sodium Chloride 0.9% 1, 300 000 ml @ 50 mls/hr IV . Q20H [facility] Rx#:[id number] Intake, IV Titration 207.661 250 Amount Heparin Sod,Pork in 0.45% 207.661 250 NaCl 25,000 unit In 0.45 % NaCl 1 250ml.bag @ 18 UNITS/KG/HR 12.41 mls/hr IV .Q20H9M [facility] Rx#: [id number] Output: Urine 700 925 Other: Voiding Method External Catheter External Catheter External Catheter # Voids 0 0 0 # Bowel Movements 1 1 - Exam CONSTITUTIONAL: Awake and alert, appears comfortable, cooperative, well-developed, well-nourished, no pain, no acute distress, currently on 2 L of O2 nasal cannula EYES: Pupils equal, round, reactive to light, normal ocular movement ENT: Moist mucous membranes without oral lesions present NECK: No masses, no bruits, trachea midline RESPIRATORY: Lungs sounds diminished bilaterally. Respirations even, nonlabored. Currently on 3 L nasal cannula with oxygen saturation 97%. Strong cough. No chest wall deformities. No clubbing or cyanosis present CARDIOVASCULAR: S1, S2 present. Regular rate and rhythm, sinus rhythm on telemetry. Palpable peripheral pulses bilaterally. No edema present. No calf pain or tenderness noted. GASTROINTESTINAL: Abdomen soft, nontender, nondistended without masses or organomegaly noted. There is no rebound or guarding present. Active bowel sounds present 4 quadrants. GENITOURINARY: Deferred INTEGUMENTARY: Skin is warm and dry with evidence of good perfusion. NEUROLOGIC: Cranial nerves II through XII intact, normal coordination, no obvious motor or sensory deficits, speech is normal MUSKULOSKELETAL: Able to move all extremities, strength equal bilaterally, normal posture PSYCHIATRIC: Alert and oriented to person place and time, appropriate affect, intact judgment and insight - Labs CBC & Chem 7: 01/15/23 07:38 01/15/23 07:38 Labs: Abnormal Lab Results - Last 24 Hours (Table) 01/15/23 01/15/23 01/15/23 Range/Units 01:59 01:59 01:59 WBC 12.4 H (3.8-10.6) k/uL Neutrophils # (1.3-7.7) k/uL Lymphocytes # (1.0-4.8) k/uL APTT 56.1 H (22.0-30.0) sec Creatinine 0.54 L (0.66-1.25) mg/dL Glucose 149 H (74-99) mg/dL 01/15/23 01/15/23 Range/Units 07:38 07:38 WBC 12.5 H (3.8-10.6) k/uL Neutrophils # 11.3 H (1.3-7.7) k/uL Lymphocytes # 0.5 L (1.0-4.8) k/uL APTT (22.0-30.0) sec Creatinine 0.54 L (0.66-1.25) mg/dL Glucose 150 H (74-99) mg/dL Microbiology - Last 24 Hours (Table) 01/14/23 12:55 Gram Stain - Preliminary Sputum Assessment and Plan Plan: Right lower lobe pneumonia with a small right-sided pleural effusion, high suspicion for an underlying infectious process, awaiting a follow-up chest x-ray from today Bilateral pulmonary embolism and the patient has small filling defects in lower lobe pulmonary artery branches, a recurrent event as the patient had a previous pulmonary embolism more than one year ago and the patient is currently on IV heparin, will assess his coverage for oral anticoagulants and decide accordingly. The patient quit his Eliquis as the cause of the medication was unaffordable on previous episodes of PE. Hemoptysis secondary to above History of a 14 mm right lower lobe pulmonary nodule, highly suspicious for malignancy. Biopsy has been done and it was nondiagnostic and the patient was treated with radiosurgery and a follow-up CAT scan of the chest from August 2022 showed interval reduction in the size of the nodule which is measuring 13 mm in size. 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 May be some interval increase in size compared to the CAT scan of August 2021. A chronic clot the dissected aneurysm cannot be completely ruled out. Clearance was obtained from cardiothoracic surgery to continue the IV heparin Acute COPD exacerbation secondary to above. The patient has severe COPD with FEV1 of 42% of predicted Shortness of breath secondary to above Previous history of pulmonary embolism more than a year ago History of smoking. History of alcohol drinking Hypertension BPH Plan Continue IV heparin Social work to assess the patient's coverage for oral anticoagulants Cover the patient with accommodation Zosyn and Levaquin for an underlying right lower lobe pneumonia Continue bronchodilators Continue IV Solu-Medrol Repeat chest x-ray today Titrate oxygen flow to maintain saturation above 90%, currently on 2 L IV fluids KVO Check pro calcitonin level, results are pending Obtain Doppler of the lower extremities, negative and echocardiogram showed a preserved LV function Keep the patient ICU We'll continue to follow
--- NOTE | 2023-01-15 10:01 | XR ---
EXAMINATION TYPE: XR chest 1V portable DATE OF EXAM: 01/15/2023 HISTORY: Shortness of breath. COMPARISON: 01/13/2023 TECHNIQUE: Single view of the chest is submitted. FINDINGS: Demonstrated are scattered senescent parenchymal change. Right lower lobe infiltrate noted slightly improved from prior study. The heart is stable. Hilar and mediastinal structures are within normal limits. Degenerative changes are seen of the dorsal spine. IMPRESSION: 1. Right lower lobe infiltrate noted slightly improved from prior study.
[2023-01-15] MEDS: LEVOFLOXACIN 750MG-D5W PMX 750 MG in DEXTROSE/WATER 1 150ML.BAG IVPB SCH (18:19)
--- NOTE | 2023-01-15 19:06 | P.PN ---
Subjective Progress Note Date: 01/15/23 Subjective: Patient is doing well from cardiac vessel standpoint. He denied having any chest pain chest pressure shortness of breath. On telemetry has not shown any atrial flutter or any fibrillation. He has not shown any ventricular tachycardias. His labs including renal function and hemoglobin has been stable PHYSICAL EXAMINATION Vital signs reviewed. Head: Normocephalic. Eyes: Sclerae nonicteric. Neck: Brisk carotid upstroke, no jugular venous distention. Lungs: Clear to auscultation. Heart: Regular rate and rhythm, S1-S2, no S3, no murmur or rub. Abdomen: Soft nontender, positive bowel sounds no organomegaly. Extremities: No edema, intact distal pulses. ASSESSMENT Acute bilateral PE with no RV strain Prior history of DVT not on anticoagulation due to high co-pays Essential hypertension COPD History of smoking History of alcohol BPH Pulmonary nodule PLAN Discontinue IV heparin drip. Start him on Xarelto 20 mg twice a day. Previously patient was on Eliquis and had high co-pays. Feel free to changes and equal relation to either of those which ever is cheaper Continue atorvastatin 40 mg due to atherosclerosis in the aorta Continue lisinopril 40 mg twice a day Continue Procardia XL 30 mg daily. Her blood pressures I, feel free to increase the dose Continue metoprolol succinate 25 mg daily Echocardiogram was reviewed shows EF of 55%, No obvious regional wall motion abnormality, mild RV dilatation Cardiology team will sign off. He should follow up outpatient with me in clinic in 3-4 weeks HISTORY OF PRESENTING ILLNESS 72-year-old with past medical history of COPD. He was being evaluated for right lower lobe lung mass. He also has prior history of pulmonary embolism without DVT. Patient was previously on anticoagulation but stopped taking it after 1 unit of pulmonary embolism as his co-pays for her Eliquis were very high. This time he presented with symptoms of worsening shortness of breath and hemoptysis. On admission his CTA showed evidence of bilateral pulmonary embolism without RV strain. His CT also showed evidence of mural thrombus in proximal descending thoracic aorta. Blood pressure 135/67 mmHg, heart rate 72, Hemoglobin is stable, renal function is normal limits EKG shows sinus rhythm with no significant ST-T wave changes REVIEW OF SYSTEMS 14 point review of system is negative except what is mentioned above in HPI. Objective - Vital Signs Vital signs: Vital Signs Temp 98.1 F 08/27/23 16:00 Pulse 87 01/15/23 17:00 Resp 16 01/15/23 17:00 BP 112/63 01/15/23 17:00 Pulse Ox 92 L 01/15/23 17:00 FiO2 28 01/13/23 20:25 Intake & Output 01/15/23 01/15/23 01/16/23 06:59 18:59 06:59 Intake Total 340 750 Output Total 925 800 Balance -585 -50 Weight 69.6 kg Intake: IV 340 300 0.9 240 200 Piperacillin-Tazobactam 3 100 100 .375 gm In Sodium Chloride 0.9% 100 ml @ 25 mls/hr IVPB Q8H [facility] Rx#: [id number] Intake, IV Titration 250 Amount Heparin Sod,Pork in 0.45% 250 NaCl 25,000 unit In 0.45 % NaCl 1 250ml.bag @ 18 UNITS/KG/HR 12.41 mls/hr IV .Q20H9M [facility] Rx#: [id number] Oral 200 Output: Urine 925 800 Other: Voiding Method External Catheter External Catheter # Voids 0 1 # Bowel Movements 1 - Labs CBC & Chem 7: 01/15/23 07:38 01/15/23 07:38 Labs: Abnormal Lab Results - Last 24 Hours (Table) 01/15/23 01/15/23 01/15/23 Range/Units 01:59 01:59 01:59 WBC 12.4 H (3.8-10.6) k/uL Neutrophils # (1.3-7.7) k/uL Lymphocytes # (1.0-4.8) k/uL APTT 56.1 H (22.0-30.0) sec Creatinine 0.54 L (0.66-1.25) mg/dL Glucose 149 H (74-99) mg/dL 01/15/23 01/15/23 Range/Units 07:38 07:38 WBC 12.5 H (3.8-10.6) k/uL Neutrophils # 11.3 H (1.3-7.7) k/uL Lymphocytes # 0.5 L (1.0-4.8) k/uL APTT (22.0-30.0) sec Creatinine 0.54 L (0.66-1.25) mg/dL Glucose 150 H (74-99) mg/dL Microbiology - Last 24 Hours (Table) 01/14/23 12:55 Gram Stain - Preliminary Sputum
[2023-01-15] MEDS: ATORVASTATIN 40 MG TAB PO SCH (20:43)
[2023-01-15] MEDS: RIVAROXABAN 15 MG TAB PO SCH (20:43)
[2023-01-15] MEDS: ALPRAZolam 0.5 MG TAB PO PRN (23:06)
[2023-01-16] MEDS: PIPERACILLIN-TAZOBACTAM 3.375 GM in SODIUM CHLORIDE 0.9% 100 ML IVPB SCH ×3 (03:31→20:28)
[2023-01-16 04:40] LABS: Basophils % (A) 0 %; Eosinophils # (A) 0.1 k/uL (0-0.7); Eosinophils % (A) 1 %; HCT 43.1 % (39.0-53.0); Lymphocytes # (A) 0.3 k/uL (1.0-4.8); Lymphocytes % (A) 4 %; MCH 30.8 pg (25.0-35.0); MCHC 32.4 g/dL (31.0-37.0); MCV 95.1 fL (80.0-100.0); Mean Platelet Volume 7.8; Monocytes # (A) 0.4 k/uL (0-1.0); Monocytes % (A) 4 %; Neutrophils # (A) 8.6 k/uL (1.3-7.7); Neutrophils % (A) 92 %; Platelet Count 167 k/uL (150-450); RBC 4.53 m/uL (4.30-5.90); RDW 13.7 % (11.5-15.5); WBC 9.4 k/uL (3.8-10.6)
[2023-01-16 05:42] LABS: African American GFR (CKD) >90 (>60 ml/min/1.73 sqM); Anion Gap 5 mmol/L; Blood Urea Nitrogen 20 mg/dL (9-20); Calcium 8.5 mg/dL (8.4-10.2); Carbon Dioxide 27 mmol/L (22-30); Chloride 105 mmol/L (98-107); Glucose 145 mg/dL (74-99); Non-African American GFR(CKD) >90 (>60 ml/min/1.73 sqM); Potassium 3.9 mmol/L (3.5-5.1); Sodium 137 mmol/L (137-145)
[2023-01-16] MEDS ORDERED: POTASSIUM BICARBONATE/CIT AC 20 MEQ TABLET.EFF NG-TUBE SCH (06:00)
--- NOTE | 2023-01-16 07:40 | P.PN ---
Subjective Progress Note Date: 01/16/23 PROGRESS NOTE The patient is a 72-year-old male with a known history of hypertension, hyperlipidemia, known history of DVT who has not been taking his anticoagulation because of cost presented with pulmonary embolism. He had no evidence of right ventricular strain. He's feeling well this morning. He denies any chest discomfort, dizziness or palpitations. He continues to be in sinus mechanism without any hemodynamic compromise. Echocardiogram showed an ejection fraction of 55-60%. He was found to have a mural thrombus in the proximal descending thoracic aorta Medications: Lipitor 40 mg daily, Zestril 40 mg twice a day, metoprolol succinate 25 mg daily, nifedipine 30 mg daily, tamsulosin, Xarelto 15 mg twice a day. PHYSICAL EXAMINATION: Blood pressure 120/60 heart rate 60 LUNGS: Clear to auscultation HEART: Regular rate and rhythm, S1, S2. No S3. No systolic murmur ABDOMEN: Soft, nontender, no organomegaly EXTREMETIES: No edema LAB: Hemoglobin 14, BUN 3.9, BUN 20, creatinine 0.64. IMPRESSION: 1. Status post pulmonary embolism 2. History of DVT, was not anticoagulated because of cost 3. History of hypertension 4. Hyperlipidemia 5. Proximal descending thoracic aorta mural thrombus PLAN: 1. Continue anticoagulation 2. Increase physical activity 3. Follow blood pressure 4. Probable discharge home soon Objective - Vital Signs Vital signs: Vital Signs Temp 98.0 F 01/16/23 00:00 Pulse 67 01/16/23 07:00 Resp 28 H 01/16/23 07:00 BP 120/64 01/16/23 07:00 Pulse Ox 92 L 01/16/23 07:00 FiO2 28 01/13/23 20:25 Intake & Output 01/15/23 01/16/23 01/16/23 18:59 06:59 18:59 Intake Total 770 383.956 20 Output Total 800 700 Balance -30 -316.044 20 Weight 69.9 kg Intake: IV 320 240 20 0.9 220 240 20 Piperacillin-Tazobactam 3 100 .375 gm In Sodium Chloride 0.9% 100 ml @ 25 mls/hr IVPB Q8H [facility] Rx#: [id number] Intake, IV Titration 250 143.956 Amount Heparin Sod,Pork in 0.45% 250 143.956 NaCl 25,000 unit In 0.45 % NaCl 1 250ml.bag @ 18 UNITS/KG/HR 12.41 mls/hr IV .Q20H9M [facility] Rx#: [id number] Oral 200 Output: Urine 800 700 Other: Voiding Method External Catheter External Catheter # Voids 1 1 # Bowel Movements 1 - Labs CBC & Chem 7: 01/16/23 04:20 01/16/23 04:20 Labs: Abnormal Lab Results - Last 24 Hours (Table) 01/15/23 01/15/23 01/16/23 Range/Units 07:38 07:38 04:20 WBC 12.5 H (3.8-10.6) k/uL Neutrophils # 11.3 H 8.6 H (1.3-7.7) k/uL Lymphocytes # 0.5 L 0.3 L (1.0-4.8) k/uL APTT (22.0-30.0) sec Creatinine 0.54 L (0.66-1.25) mg/dL Glucose 150 H (74-99) mg/dL 01/16/23 01/16/23 Range/Units 04:20 04:20 WBC (3.8-10.6) k/uL Neutrophils # (1.3-7.7) k/uL Lymphocytes # (1.0-4.8) k/uL APTT 35.5 H (22.0-30.0) sec Creatinine 0.64 L (0.66-1.25) mg/dL Glucose 145 H (74-99) mg/dL Microbiology - Last 24 Hours (Table) 01/14/23 12:55 Gram Stain - Preliminary Sputum
[2023-01-16] MEDS: ALBUTEROL NEBULIZED 2.5 MG/3 ML INHALATION SCH ×4 (07:47→20:42)
[2023-01-16] MEDS: RIVAROXABAN 15 MG TAB PO SCH ×2 (08:08→20:28)
[2023-01-16] MEDS: LIDOCAINE 5% PATCH TOPICAL SCH (08:08)
[2023-01-16] MEDS: TAMSULOSIN 0.4 MG CAP.ER.24H PO SCH (08:09)
[2023-01-16] MEDS: lisinopriL 20 MG TAB PO SCH ×2 (08:09→20:28)
[2023-01-16] MEDS: THIAMINE 100 MG/ML 2 ML VIAL IVP SCH (08:09)
[2023-01-16] MEDS: PANTOPRAZOLE 40 MG/10 ML VIAL IVP SCH ×2 (08:09→20:29)
[2023-01-16] MEDS: methylPREDNISolone SOD SUCCI 40 MG/ML 1 ML VIAL IV SCH ×2 (08:09→20:29)
[2023-01-16] MEDS: METOPROLOL SUCCINATE (ER) 25 MG TAB.ER.24H PO SCH (08:09)
[2023-01-16] MEDS: NIFEdipine XL 30 MG TAB.ER.24 PO SCH (08:09)
--- NOTE | 2023-01-16 09:10 | P.PN ---
Subjective Progress Note Date: 01/16/23 Principal diagnosis: Shortest of breath, coughing up blood This is a 71-year-old male who was admitted after he started coughing up blood last Monday. He does have a history of pulmonary embolism and had been on Eliquis but had stopped it due to cost. He is seen this morning sitting up in bed in ICU. He was on a heparin drip which has been discontinued and he was started on xarelto. He denies any complaints this morning. Objective - Vital Signs Vital signs: Vital Signs Temp 98.0 F 01/16/23 00:00 Pulse 63 01/16/23 07:56 Resp 16 01/16/23 07:56 BP 120/64 01/16/23 07:00 Pulse Ox 93 L 01/16/23 07:47 FiO2 28 01/13/23 20:25 Intake & Output 01/15/23 01/16/23 01/16/23 18:59 06:59 18:59 Intake Total 770 383.956 20 Output Total 800 700 Balance -30 -316.044 20 Weight 69.9 kg Intake: IV 320 240 20 0.9 220 240 20 Piperacillin-Tazobactam 3 100 .375 gm In Sodium Chloride 0.9% 100 ml @ 25 mls/hr IVPB Q8H [facility] Rx#: [id number] Intake, IV Titration 250 143.956 Amount Heparin Sod,Pork in 0.45% 250 143.956 NaCl 25,000 unit In 0.45 % NaCl 1 250ml.bag @ 18 UNITS/KG/HR 12.41 mls/hr IV .Q20H9M [facility] Rx#: [id number] Oral 200 Output: Urine 800 700 Other: Voiding Method External Catheter External Catheter # Voids 1 1 # Bowel Movements 1 - Constitutional General appearance: Present: cooperative, no acute distress - EENT Eyes: Present: PERRLA - Neck Neck: Present: normal ROM. Absent: lymphadenopathy, rigidity - Respiratory Respiratory: bilateral: CTA - Cardiovascular Rhythm: regular Heart sounds: normal: S1, S2 - Gastrointestinal General gastrointestinal: Present: soft. Absent: tenderness - Integumentary Integumentary: Present: normal, normal turgor - Psychiatric Psychiatric: Present: A&O x's 3, appropriate affect, intact judgment & insight - Labs CBC & Chem 7: 01/16/23 04:20 01/16/23 04:20 Labs: Abnormal Lab Results - Last 24 Hours (Table) 01/15/23 01/16/23 01/16/23 Range/Units 07:38 04:20 04:20 Neutrophils # 8.6 H (1.3-7.7) k/uL Lymphocytes # 0.3 L (1.0-4.8) k/uL APTT (22.0-30.0) sec Creatinine 0.54 L 0.64 L (0.66-1.25) mg/dL Glucose 150 H 145 H (74-99) mg/dL 01/16/23 Range/Units 04:20 Neutrophils # (1.3-7.7) k/uL Lymphocytes # (1.0-4.8) k/uL APTT 35.5 H (22.0-30.0) sec Creatinine (0.66-1.25) mg/dL Glucose (74-99) mg/dL Microbiology - Last 24 Hours (Table) 01/14/23 12:55 Gram Stain - Final Sputum Sputum Culture - Final Assessment and Plan (1) Pulmonary embolus Current Visit: Yes Status: Acute Code(s): I26.99 - OTHER PULMONARY EMBOLISM WITHOUT ACUTE COR PULMONALE SNOMED Code(s): 19892828 (2) COPD (chronic obstructive pulmonary disease) Current Visit: Yes Status: Acute Code(s): J44.9 - CHRONIC OBSTRUCTIVE PULMONARY DISEASE, UNSPECIFIED SNOMED Code(s): 78165340 (3) HTN (hypertension) Current Visit: No Status: Acute Code(s): I10 - ESSENTIAL (PRIMARY) HYPERTENSION SNOMED Code(s): 77337461 (4) Right lower lobe lung mass Current Visit: No Status: Acute Code(s): R91.8 - OTHER NONSPECIFIC ABNORMAL FINDING OF LUNG FIELD SNOMED Code(s): 832361762 Plan: Check CBC and CMP in the morning. Patient will be possibly moved to medical floor today. Work with case management to find solution for anticoagulation costs Patient seen and evaluated by nurse practitioner, physician in agreement with plan
--- NOTE | 2023-01-16 12:40 | P.PN ---
Subjective Progress Note Date: 01/16/23 Principal diagnosis: Acute pulmonary embolism 72-year-old male patient is known to have advanced COPD with an FEV1 of 42% of predicted. He is also known to have a right lower lobe mass, bronchoscopy yielded no definitive diagnosis, yet based on the high suspicion for malignancy, the patient was given radiosurgery and most recent CAT scan of the chest that was done in August 2021 showed stable right lower lobe mass and has dropped in size down to 13 mm. As such, there was interval reduction in size of the right lower lobe mass. Note that the patient in addition to COPD and lung mass, as previous history of left lower lobe pulmonary embolism without any DVT. Patient was treated with anticoagulation and subsequent anticoagulation was discontinued. He was unable to afford the cost of Eliquis. He has history of smoking, hypertension and gout in addition to COPD. The patient presented to the emergency department yesterday because of increased cough and congestion w orsening shortness of breath. He was having pain along the right side of his chest. He was given a CT angiogram that showed bilateral lower lobe pulmonary emboli without any RV strain pattern. There was also a consolidation of the right lower lobe, right-sided pleural effusion in addition to a mural thrombus in the proximal descending thoracic aorta. His d-dimer was at 1.56. Patient was started on IV heparin. A cardiothoracic consultation was also obtained regarding this mural thrombus. Note that this was a concentric mural density in the proximal descending thoracic aorta that was present and apparently tested somewhat decreased in size compared to the previous CAT scan on 09/08/2022. A thrombosed dissection cannot be completely ruled out. His blood pressure is stable and is currently on his RAINE inhibitor is taking lisinopril 40 mg twice a day. He is running a BP of 135/67. Heart rate is 72. Is also on oxygen 2 L/m nasal cannula. 01/15/2023, the patient is much more comfortable. No hemoptysis. No chest pain. Less short of breath compared to yesterday. No fever. No chills. He is currently on IV heparin. His on broad-spectrum antibiotics and is also on a combination of Zosyn and Levaquin. No DVTs in his lower extremities. Echocardiogram was also done and the patient has a preserved LV function without any significant pulmonary hypertension or valvular heart disease. The patient has an ejection fraction of 55-60%. In terms of his labs, the patient has a biliary scan of 12.5, hemoglobin was 15 and a platelet count of 196. PTT therapeutic. BUN is 40 with a creatinine of 0.5. Sodium level is at 137. Calcium levels of 8.8. He remains on oxygen at 2 L per minute nasal cannula. Patient was on 01/16/2023, patient is doing much better today, nonetheless continues to have scanty amount of hemoptysis. Patient is less short of breath, no fever no chills, no chest pain. He was transitioned from IV heparin to eliquis, patient used to be on eliquis in the past but he stopped that because of the cost. Chest x-ray continues to show by basilar opacity especially in the right base, I believe the patient has mostly an infarcted lung, strongly doubt pneumonia, as pro-calcitonin is only 0.07. Labs today showed WBC count 9.4 hemoglobin 14 electrolytes are normal renal profile is normal Objective - Vital Signs Vital signs: Vital Signs Temp 97.8 F 01/16/23 12:00 Pulse 70 01/16/23 12:00 Resp 24 01/16/23 12:00 BP 122/69 01/16/23 10:00 Pulse Ox 96 01/16/23 12:00 FiO2 28 01/13/23 20:25 Intake & Output 01/15/23 01/16/23 01/16/23 18:59 06:59 18:59 Intake Total 770 383.956 80 Output Total 800 700 Balance -30 -316.044 80 Weight 69.9 kg Intake: IV 320 240 80 0.9 220 240 80 Piperacillin-Tazobactam 3 100 .375 gm In Sodium Chloride 0.9% 100 ml @ 25 mls/hr IVPB Q8H [facility] Rx#: [id number] Intake, IV Titration 250 143.956 Amount Heparin Sod,Pork in 0.45% 250 143.956 NaCl 25,000 unit In 0.45 % NaCl 1 250ml.bag @ 18 UNITS/KG/HR 12.41 mls/hr IV .Q20H9M [facility] Rx#: [id number] Oral 200 Output: Urine 800 700 Other: Voiding Method External Catheter External Catheter External Catheter # Voids 1 1 # Bowel Movements 1 - Exam Physical Exam: Revealed a 72-year-old white male in no distress, on 2 L nasal cannula. Head: Atraumatic, normocephalic HEENT:[Neck is supple.] [No neck masses.] [No thyromegaly.] [No JVD.] Chest: [Clear throughout, no crackles, no rhonchi, no wheezes.] Cardiac Exam: [Normal S1 and S2, no S3 gallop, no murmur.] Abdomen: [Soft, nontender, no megaly, no rebound, no guarding, normal bowel sounds.] Extremities: [No clubbing, no edema, no cyanosis.] Neurological Exam: [No focal neurologic deficit.] Oriented 3. Psychiatric: Normal mood, affect and normal status examination. Skin: No rashes. - Labs CBC & Chem 7: 01/16/23 04:20 01/16/23 04:20 Labs: Abnormal Lab Results - Last 24 Hours (Table) 01/16/23 01/16/23 01/16/23 Range/Units 04:20 04:20 04:20 Neutrophils # 8.6 H (1.3-7.7) k/uL Lymphocytes # 0.3 L (1.0-4.8) k/uL APTT 35.5 H (22.0-30.0) sec Creatinine 0.64 L (0.66-1.25) mg/dL Glucose 145 H (74-99) mg/dL Microbiology - Last 24 Hours (Table) 01/14/23 12:55 Gram Stain - Final Sputum Sputum Culture - Final Assessment and Plan Assessment: Impression: Acute hypoxic respiratory failure secondary to bilateral pulmonary embolism Previous history of pulmonary embolism Hemoptysis secondary to above History of presumptive lung cancer/pulmonary nodule, 14 mm nondiagnostic biopsy. Nonetheless patient received sbrt History of alcohol drinking Benign essential hypertension Benign prostatic hyperplasia Severe underlying COPD, FEV1 of 42% Thrombus involving the descending aorta recommendation: Continue present supportive care measures Transfer patient to a regular medical floor once the patient is cleared by other consultants Consider discharge planning if cleared by other consultants Patient will remain on eliquis/lifetime Could consider stopping antibiotics his pro-calcitonin level is normal We will continue to Time with Patient: Less than 30
--- NOTE | 2023-01-16 12:43 | CT ---
EXAMINATION TYPE: CT angio tho/abd W Run Off DATE OF EXAM: 01/16/2023 COMPARISON: HISTORY: Intramural thrombus. Pre-surgical TEVAR. CT DLP: 2036.3 mGycm EXAMINATION TYPE: CT angio tho/abd W Run Off DATE OF EXAM: 01/16/2023 COMPARISON: CTA of the chest 01/13/2023 HISTORY: Intramural thrombus. Pre-surgical TEVAR. CT DLP: 2036.3 mGycm CONTRAST: CTA thoracic and abdominal aorta with 3-D reconstruction is performed and without and with IV Contras t, patient injected with 100ml mL of Isovue 370. Contrast CTA of the abdominal aorta and chest with runoff of the lower extremity arterial system was performed from the lung bases through the ankles and feet. 3-D reconstruction imaging obtained at a [employer] workstation. CT Chest: THORACIC AORTA: Normal caliber ascending thoracic aorta. At the level of the arch there is a crescent ic low attenuation noted which could reflect chronic intramural thrombus versus soft plaque. No evide nce for dissection. Irregular plaque is also noted within the descending thoracic aorta which is pardeep neurysmal. LUNGS: Previously described pulmonary embolism right lower lobe subsegmental branches. There is also subsegmental filling defect within a left lower lobe pulmonary arterial branch. There are small bilat eral pleural effusions as well as bilateral infiltrates and atelectasis. MEDIASTINUM: The heart is enlarged. No evidence for mediastinal mass or adenopathy. HILAR STRUCTURES: No evidence for mass. No hilar adenopathy is appreciated. ABDOMINAL AORTA: Atheromatous changes of the abdominal aorta without evidence for aneurysm. Celiac tr unk as well as the SMA and JUAQUIN appear to be patent. Iliac vessels: Common iliac arteries are patent bilaterally. There is diffuse plaque formation noted bilaterally of the bilateral common iliac arteries with 50% stenosis noted on the right at its origin . 70% stenosis distal left common iliac artery. Diffuse atheromatous change throughout the internal a nd external iliac arteries with less than 50% stenosis seen bilaterally. Femoral arteries: Atheromatous changes noted of the common femoral arteries without stenosis greater than 50%. There is occlusion of the bilateral superficial femoral arteries with collateralization see n. The distal SFAs reconstitute distally. Popliteal arteries: Popliteal arteries are patent bilaterally with only mild plaque formation noted. Below the knee arteries: Trifurcation is patent bilaterally. Peroneal, anterior and posterior tibial arteries demonstrate mild calcific disease without evidence for hemodynamically significant stenosis. Limited runoff of the ankles and feet given timing of the contrast bolus. LIVER/GB-cardiomegaly with underlying hepatic steatosis. Gallbladder is unremarkable. PANCREAS- No significant abnormality is seen. SPLEEN- No significant abnormality is seen. ADRENALS- No significant abnormality is seen. KIDNEYS/BLADDER- No significant abnormality is seen. BOWEL- No Significant abnormality GENITAL ORGANS: No gross abnormality seen. LYMPH NODES- No greater than 1cm abdominal or pelvic lymph nodes are appreciated. OSSEOUS STRUCTURES- No significant abnormality is seen. OTHER- No significant abnormality is seen. IMPRESSION- 1. 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 2. 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 3. Pulmonary embolism as noted with basilar atelectasis and/or infiltrates and small effusions.
[2023-01-16] MEDS: LEVOFLOXACIN 750MG-D5W PMX 750 MG in DEXTROSE/WATER 1 150ML.BAG IVPB SCH (17:48)
[2023-01-16] MEDS: ATORVASTATIN 40 MG TAB PO SCH (20:29)
[2023-01-16] MEDS: ALPRAZolam 0.5 MG TAB PO PRN (23:35)
[2023-01-17] MEDS: PIPERACILLIN-TAZOBACTAM 3.375 GM in SODIUM CHLORIDE 0.9% 100 ML IVPB SCH (04:08)
[2023-01-17 05:31] LABS: HCT 43.3 % (39.0-53.0); HGB 13.9 gm/dL (13.0-17.5); MCH 30.6 pg (25.0-35.0); MCHC 32.2 g/dL (31.0-37.0); MCV 95.2 fL (80.0-100.0); Mean Platelet Volume 7.8; Platelet Count 181 k/uL (150-450); RBC 4.54 m/uL (4.30-5.90); RDW 13.6 % (11.5-15.5)
[2023-01-17 05:39] LABS: ALT 36 U/L (4-49); AST 52 U/L (17-59); African American GFR (CKD) >90 (>60 ml/min/1.73 sqM); Albumin 3.1 g/dL (3.5-5.0); Alkaline Phosphatase 36 U/L (38-126); Anion Gap 8 mmol/L; Blood Urea Nitrogen 15 mg/dL (9-20); Calcium 8.4 mg/dL (8.4-10.2); Carbon Dioxide 25 mmol/L (22-30); Chloride 103 mmol/L (98-107); Glucose 179 mg/dL (74-99); Non-African American GFR(CKD) >90 (>60 ml/min/1.73 sqM); Potassium 3.6 mmol/L (3.5-5.1); Sodium 136 mmol/L (137-145); Total Bilirubin 0.5 mg/dL (0.2-1.3); Total Protein 5.9 g/dL (6.3-8.2)
--- NOTE | 2023-01-17 07:54 | P.PN ---
Subjective Progress Note Date: 01/17/23 PROGRESS NOTE The patient is a 72-year-old male with a known history of hypertension, hyperlipidemia, known history of DVT who has not been taking his anticoagulation because of cost presented with pulmonary embolism. He had no evidence of right ventricular strain. He's feeling well this morning. He denies any chest discomfort, dizziness or palpitations. He continues to be in sinus mechanism without any hemodynamic compromise. Echocardiogram showed an ejection fraction of 55-60%. He was found to have a mural thrombus in the proximal descending thoracic aorta January 17: The patient is feeling well today, his hemoptysis has improved. He denies any chest discomfort, dizziness or palpitations. He denies any nausea or vomiting. Hemodynamically he is stable. He continues to be in sinus mechanism. There is no evidence of right-sided failure. Medications: Lipitor 40 mg daily, Zestril 40 mg twice a day, metoprolol succinate 25 mg daily, nifedipine 30 mg daily, tamsulosin, Xarelto 15 mg twice a day. PHYSICAL EXAMINATION: Blood pressure 124/70 heart rate 65 LUNGS: Clear to auscultation HEART: Regular rate and rhythm, S1, S2. No S3. No systolic murmur ABDOMEN: Soft, nontender, no organomegaly EXTREMETIES: No edema LAB: Hemoglobin 13.9, BUN 3.6, BUN 15, creatinine 0.6 to IMPRESSION: 1. Status post pulmonary embolism 2. History of DVT, was not anticoagulated because of cost 3. History of hypertension 4. Hyperlipidemia 5. Proximal descending thoracic aorta mural thrombus PLAN: 1. Continue anticoagulation 2. Increase physical activity 3. Probable discharge home today and follow-up as an outpatient Objective - Vital Signs Vital signs: Vital Signs Temp 98.2 F 01/17/23 02:00 Pulse 65 01/17/23 02:00 Resp 15 01/17/23 02:00 BP 124/70 01/17/23 02:00 Pulse Ox 93 L 01/17/23 02:00 FiO2 28 01/13/23 20:25 Intake & Output 01/16/23 01/17/23 01/17/23 18:59 06:59 18:59 Intake Total 500 30 Output Total 400 Balance 100 30 Intake: IV 240 30 0.9 80 20 Invasive Line 4 10 10 Levofloxacin 750Mg-D5w 150 Pmx 750 mg In Dextrose/ Water 1 150ml.bag @ 100 mls/hr IVPB Q24H [facility] Rx#: [id number] Oral 260 Output: Urine 400 Other: Voiding Method External Catheter External Catheter # Voids 1 4 # Bowel Movements 1 - Labs CBC & Chem 7: 01/17/23 04:37 01/17/23 04:37 Labs: Abnormal Lab Results - Last 24 Hours (Table) 01/17/23 Range/Units 04:37 Sodium 136 L (137-145) mmol/L Creatinine 0.62 L (0.66-1.25) mg/dL Glucose 179 H (74-99) mg/dL Alkaline Phosphatase 36 L (38-126) U/L Total Protein 5.9 L (6.3-8.2) g/dL Albumin 3.1 L (3.5-5.0) g/dL Microbiology - Last 24 Hours (Table) 01/14/23 12:55 Gram Stain - Final Sputum Sputum Culture - Final
[2023-01-17] MEDS: ALBUTEROL NEBULIZED 2.5 MG/3 ML INHALATION SCH ×2 (08:12→11:31)
[2023-01-17 08:41] VITALS: BP 135/66; PULSE 66; RESP 13; TEMP 97.7
[2023-01-17] MEDS: TAMSULOSIN 0.4 MG CAP.ER.24H PO SCH (08:45)
[2023-01-17] MEDS: lisinopriL 20 MG TAB PO SCH (08:45)
[2023-01-17] MEDS: METOPROLOL SUCCINATE (ER) 25 MG TAB.ER.24H PO SCH (08:46)
[2023-01-17] MEDS: PANTOPRAZOLE 40 MG/10 ML VIAL IVP SCH (08:46)
[2023-01-17] MEDS: LIDOCAINE 5% PATCH TOPICAL SCH (08:46)
[2023-01-17] MEDS: methylPREDNISolone SOD SUCCI 40 MG/ML 1 ML VIAL IV SCH (08:46)
[2023-01-17] MEDS: RIVAROXABAN 15 MG TAB PO SCH (08:47)
[2023-01-17] MEDS: NIFEdipine XL 30 MG TAB.ER.24 PO SCH (08:47)
[2023-01-17] MEDS: THIAMINE 100 MG/ML 2 ML VIAL IVP SCH (08:48)
--- NOTE | 2023-01-17 08:51 | P.DS ---
Providers Date of admission: 01/13/23 19:00 Attending physician: Olu Au Consults: 01/13/23 18:58 Consult Physician Routine Consulting Provider: Samuel Rollins Consult Reason/Comments: Aortic intramural thrombus Do you want consulting provider notified?: Already Contacted 01/13/23 18:59 Consult Physician Routine Consulting Provider: [facility] Consult Reason/Comments: PE Do you want consulting provider notified?: Yes Consult Physician Urgent Consulting Provider: Eduar Green Consult Reason/Comments: PE, aortic intramural thrombus, HTN Do you want consulting provider notified?: Already Contacted Primary care physician: Olu Au - Discharge Diagnosis(es) (1) Pulmonary embolus Current Visit: Yes Status: Acute (2) COPD (chronic obstructive pulmonary disease) Current Visit: Yes Status: Acute (3) HTN (hypertension) Current Visit: No Status: Acute (4) Right lower lobe lung mass Current Visit: No Status: Acute Hospital Course: This is a 73 -year-old male who is admitted after he started coughing up blood last Monday. He does have a history of pulmonary embolism and had been on El iquis but had stopped it due to cost. He was started on heparin drip was discontinued and he was started on xarelto so. He has been cleared by consultants to go home. Question cost and inability to afford anticoagulation. We'll send an starter pack of Xarelto to see if that will be covered. If Xarelto is not covered, patient may come to our office for samples of Eliquis. We will then have our office pharmacist and career technology teacher work on a more affordable plan. Patient reports he is feeling well this morning with no complaints. Denies any further episodes of coughing up blood. Patient seen and evaluated by nurse practitioner, physician in agreement with plan Patient Condition at Discharge: Serious Plan - Discharge Summary Discharge Rx Participant: Yes New Discharge Prescriptions: New NIFEdipine XL [Procardia XL] 30 mg PO DAILY #30 tab Metoprolol Succinate (ER) [Toprol XL] 25 mg PO DAILY #30 tab Levofloxacin [Levaquin] 750 mg PO DAILY 1 Days #5 tab Rivaroxaban [Xarelto Starter Pack] 15 mg PO DIRECTED 30 Days #1 packet Continue allopurinoL [Zyloprim] 100 mg PO DAILY Enalapril [Vasotec] 20 mg PO BID Albuterol Nebulized [Ventolin Nebulized] 2.5 mg INHALATION RT-QID Ibuprofen [Motrin] 600 mg PO Q8HR PRN #30 tab PRN Reason: Pain Pantoprazole [Protonix] 40 mg PO AC-SUPPER Albuterol Inhaler [Ventolin Hfa Inhaler] 2 puff INHALATION RT-Q6H PRN PRN Reason: Shortness Of Breath Tamsulosin [Flomax] 0.8 mg PO DAILY Baclofen 10 mg PO TID PRN #12 tab PRN Reason: Pain ALPRAZolam [Xanax] 0.5 mg PO TID PRN PRN Reason: Anxiety Discharge Medication List Enalapril [Vasotec] 20 mg PO BID 01/21/20 [History] allopurinoL [Zyloprim] 100 mg PO DAILY 01/21/20 [History] Tamsulosin [Flomax] 0.8 mg PO DAILY 09/18/21 [History] Albuterol Nebulized [Ventolin Nebulized] 2.5 mg INHALATION RT-QID 03/03/22 [History] Baclofen 10 mg PO TID PRN #12 tab 01/11/23 [Rx] Ibuprofen [Motrin] 600 mg PO Q8HR PRN #30 tab 01/11/23 [Rx] ALPRAZolam [Xanax] 0.5 mg PO TID PRN 01/13/23 [History] Albuterol Inhaler [Ventolin Hfa Inhaler] 2 puff INHALATION RT-Q6H PRN 01/13/23 [History] Pantoprazole [Protonix] 40 mg PO AC-SUPPER 01/13/23 [History] Levofloxacin [Levaquin] 750 mg PO DAILY 1 Days #5 tab 01/17/23 [Rx] Metoprolol Succinate (ER) [Toprol XL] 25 mg PO DAILY #30 tab 01/17/23 [Rx] NIFEdipine XL [Procardia XL] 30 mg PO DAILY #30 tab 01/17/23 [Rx] Rivaroxaban [Xarelto Starter Pack] 15 mg PO DIRECTED 30 Days #1 packet 01/17/23 [Rx] Follow up Appointment(s)/Referral(s): Olu Au MD [Primary Care Provider] - 1 Week Samuel Rollins MD [STAFF PHYSICIAN] - 2 Weeks Activity/Diet/Wound Care/Special Instructions: If xarelto is not covered or patient can not afford, he can pepper picker samples of eliquis in our office Discharge Disposition: HOME SELF-CARE
--- NOTE | 2023-01-17 13:11 | P.PN ---
Subjective Progress Note Date: 01/17/23 Principal diagnosis: Acute pulmonary embolism 72-year-old male patient is known to have advanced COPD with an FEV1 of 42% of predicted. He is also known to have a right lower lobe mass, bronchoscopy yielded no definitive diagnosis, yet based on the high suspicion for malignancy, the patient was given radiosurgery and most recent CAT scan of the chest that was done in August 2021 showed stable right lower lobe mass and has dropped in size down to 13 mm. As such, there was interval reduction in size of the right lower lobe mass. Note that the patient in addition to COPD and lung mass, as previous history of left lower lobe pulmonary embolism without any DVT. Patient was treated with anticoagulation and subsequent anticoagulation was discontinued. He was unable to afford the cost of Eliquis. He has history of smoking, hypertension and gout in addition to COPD. The patient presented to the emergency department yesterday because of increased cough and congestion w orsening shortness of breath. He was having pain along the right side of his chest. He was given a CT angiogram that showed bilateral lower lobe pulmonary emboli without any RV strain pattern. There was also a consolidation of the right lower lobe, right-sided pleural effusion in addition to a mural thrombus in the proximal descending thoracic aorta. His d-dimer was at 1.56. Patient was started on IV heparin. A cardiothoracic consultation was also obtained regarding this mural thrombus. Note that this was a concentric mural density in the proximal descending thoracic aorta that was present and apparently tested somewhat decreased in size compared to the previous CAT scan on 09/08/2022. A thrombosed dissection cannot be completely ruled out. His blood pressure is stable and is currently on his RAINE inhibitor is taking lisinopril 40 mg twice a day. He is running a BP of 135/67. Heart rate is 72. Is also on oxygen 2 L/m nasal cannula. 01/15/2023, the patient is much more comfortable. No hemoptysis. No chest pain. Less short of breath compared to yesterday. No fever. No chills. He is currently on IV heparin. His on broad-spectrum antibiotics and is also on a combination of Zosyn and Levaquin. No DVTs in his lower extremities. Echocardiogram was also done and the patient has a preserved LV function without any significant pulmonary hypertension or valvular heart disease. The patient has an ejection fraction of 55-60%. In terms of his labs, the patient has a biliary scan of 12.5, hemoglobin was 15 and a platelet count of 196. PTT therapeutic. BUN is 40 with a creatinine of 0.5. Sodium level is at 137. Calcium levels of 8.8. He remains on oxygen at 2 L per minute nasal cannula. Patient was on 01/16/2023, patient is doing much better today, nonetheless continues to have scanty amount of hemoptysis. Patient is less short of breath, no fever no chills, no chest pain. He was transitioned from IV heparin to eliquis, patient used to be on eliquis in the past but he stopped that because of the cost. Chest x-ray continues to show by basilar opacity especially in the right base, I believe the patient has mostly an infarcted lung, strongly doubt pneumonia, as pro-calcitonin is only 0.07. Labs today showed WBC count 9.4 hemoglobin 14 electrolytes are normal renal profile is normal Patient was reevaluated today on , doing well, relatively asymptomatic, no further episodes of hemoptysis, patient is on room air, resting comfortably, not in any distress, discharge planning is in progress. Patient is advised to make an appointment with Dr. Green for follow-up on outpatient basis. Objective - Vital Signs Vital signs: Vital Signs Temp 97.7 F 01/17/23 08:00 Pulse 74 01/17/23 08:30 Resp 13 01/17/23 08:00 BP 135/66 01/17/23 08:00 Pulse Ox 95 01/17/23 08:15 FiO2 28 01/13/23 20:25 Intake & Output 01/16/23 01/17/23 01/17/23 18:59 06:59 18:59 Intake Total 500 30 250 Output Total 400 400 Balance 100 30 -150 Intake: IV 240 30 10 0.9 80 20 Invasive Line 4 10 10 10 Levofloxacin 750Mg-D5w 150 Pmx 750 mg In Dextrose/ Water 1 150ml.bag @ 100 mls/hr IVPB Q24H [facility] Rx#: [id number] Oral 260 240 Output: Urine 400 400 Other: Voiding Method External Catheter External Catheter Urinal # Voids 1 4 # Bowel Movements 1 - Exam Physical Exam: Revealed a 72-year-old white male in no distress, on room air Head: Atraumatic, normocephalic HEENT:[Neck is supple.] [No neck masses.] [No thyromegaly.] [No JVD.] Chest: [Clear throughout, no crackles, no rhonchi, no wheezes.] Cardiac Exam: [Normal S1 and S2, no S3 gallop, no murmur.] Abdomen: [Soft, nontender, no megaly, no rebound, no guarding, normal bowel sounds.] Extremities: [No clubbing, no edema, no cyanosis.] Neurological Exam: [No focal neurologic deficit.] Oriented 3. Psychiatric: Normal mood, affect and normal status examination. Skin: No rashes. - Labs CBC & Chem 7: 01/17/23 04:37 01/17/23 04:37 Labs: Abnormal Lab Results - Last 24 Hours (Table) 01/17/23 Range/Units 04:37 Sodium 136 L (137-145) mmol/L Creatinine 0.62 L (0.66-1.25) mg/dL Glucose 179 H (74-99) mg/dL Alkaline Phosphatase 36 L (38-126) U/L Total Protein 5.9 L (6.3-8.2) g/dL Albumin 3.1 L (3.5-5.0) g/dL Assessment and Plan Assessment: Impression: Acute hypoxic respiratory failure secondary to bilateral pulmonary embolism Previous history of pulmonary embolism Hemoptysis secondary to above History of presumptive lung cancer/pulmonary nodule, 14 mm nondiagnostic biopsy. Nonetheless patient received sbrt History of alcohol drinking Benign essential hypertension Benign prostatic hyperplasia Severe underlying COPD, FEV1 of 42% Thrombus involving the descending aorta recommendation: Agree with discharge planning Patient to resume his bronchodilators Patient will remain on oral anticoagulation therapy/lifetime Follow-up with Dr. Green postdischarge Time with Patient: Less than 30
== END 2023-01-17 11:01 | disposition home or self-care (01) | DRG 175 ==
LOC: EC 12:55 → 2SICU 19:00
PROVIDERS: ADMIT Family Medicine; ATTEND Family Medicine
DX: I26.99 Other pulmonary embolism without acute cor pulmonale (principal); J18.9 Pneumonia, unspecified organism; J96.01 Acute respiratory failure with hypoxia; I74.11 Embolism and thrombosis of thoracic aorta; J44.0 Chronic obstructive pulmonary disease with (acute) lower respiratory infection; J44.1 Chronic obstructive pulmonary disease with (acute) exacerbation; I51.3 Intracardiac thrombosis, not elsewhere classified; I10 Essential (primary) hypertension; T45.1X5A Adverse effect of antineoplastic and immunosuppressive drugs, initial encounter; H91.90 Unspecified hearing loss, unspecified ear; K21.9 Gastro-esophageal reflux disease without esophagitis; F17.210 Nicotine dependence, cigarettes, uncomplicated; F10.90 Alcohol use, unspecified, uncomplicated; M94.0 Chondrocostal junction syndrome [Tietze]; R91.8 Other nonspecific abnormal finding of lung field; R03.1 Nonspecific low blood-pressure reading; N40.0 Benign prostatic hyperplasia without lower urinary tract symptoms; E78.5 Hyperlipidemia, unspecified; Z20.822 Contact with and (suspected) exposure to COVID-19; Z86.711 Personal history of pulmonary embolism; Z88.1 Allergy status to other antibiotic agents; Z79.51 Long term (current) use of inhaled steroids; Z79.899 Other long term (current) drug therapy; Z85.118 Personal history of other malignant neoplasm of bronchus and lung; Z92.3 Personal history of irradiation; Z87.39 Personal history of other diseases of the musculoskeletal system and connective tissue; Z85.038 Personal history of other malignant neoplasm of large intestine; Z92.21 Personal history of antineoplastic chemotherapy; Z86.718 Personal history of other venous thrombosis and embolism
CPT/HCPCS: 36415; 71045; 71046; 71275; 75635; 80048; 80053; 83605; 83880; 84145; 84484; 85025; 85027; 85379; 85610; 85730; 87070; 87205; 87636; 93005; 93306; 93970; 94640; 94760; 96365; 96366; 96368; 96375; 99291

== ENCOUNTER → 2023-03-21 | Outpatient (CLI) | payer MEDICARE, BC ==
[2023-03-21 11:31] LABS: African American GFR (CKD) >90 (>60 ml/min/1.73 sqM); Blood Urea Nitrogen 15 mg/dL (9-20); Non-African American GFR(CKD) >90 (>60 ml/min/1.73 sqM)
--- NOTE | 2023-03-21 21:45 | CT ---
EXAMINATION TYPE: CT chest w con DATE OF EXAM: 03/21/2023 COMPARISON: 09/18/2021, 09/16/2022 HISTORY: 73-year-old male Hx lung ca, blood clot. C34.31 MALIGNANT NEOPLASM OF LOWER LOBE, RIGHT BRO TECHNIQUE: Contiguous axial scanning of the chest after the administration of 100 mL of Isovue 300. Coronal/sagittal reconstructions performed. CT DLP: 277.80mGycm. Automatic exposure control utilized for a dose reduction. FINDINGS: The heart is normal size without pericardial effusion. LAD and RCA coronary calcifications are presen t. Ectatic aortic root at 3.7 cm. Mild to moderate atherosclerotic arch calcifications. Moderate athero sclerotic plaque and calcification also continuing in the visualized upper abdominal aorta. There is mild to moderate circumferential wall thickening along the distal half of the esophagus whic h we correlated with patient's symptoms. No thoracic lymphadenopathy by CT size criteria. Mild emphysematous change, more moderate in the upper lungs. Irregular spiculated density right lower lobe measuring 2.3 x 1.7 cm. This is in comparison to 2.4 x 1.4 cm on 09/08/2022. Less defined than on the patient's 09/18/2021 exam. New 7 mm subpleural nodularity posterior right midlung, axial image 18. New patchy opacity periphery of the right base. Some unchanged strandy scarring at the left base. No pleural effusion. Mild low-density thickening of the adrenal glands without discrete nodularity. Low attenuation of the hepatic parenchyma suggesting fatty infiltration. Bones: No osseous destructive process. IMPRESSION: 1. Poorly defined spiculated density remains in the right lower lobe measuring 2.3 x 1.7 cm (versus 2 .4 x 1.4 cm on 09/08/2022). Probably corresponding to site of treated disease. Ongoing follow-up can b e performed. 2. New 7 mm subpleural pulmonary nodule posterior right midlung. This may represent an area of nodula r subpleural atelectasis rather than a true nodule. Short interval follow-up to reassess. 3. New patchy opacity periphery of the right base could represent interval development of some scarri ng or developing infiltrate/pneumonia. Correlate with symptoms. 4. Mild to moderate circumferential wall thickening distal half of the esophagus. Correlate for any p otential symptoms of esophagitis.
== END | disposition home or self-care (01) ==
LOC: RADCTMAIN 10:58
PROVIDERS: ATTEND Radiology Radiation Oncology
DX: C34.31 Malignant neoplasm of lower lobe, right bronchus or lung (principal); J98.4 Other disorders of lung; R91.8 Other nonspecific abnormal finding of lung field; F17.210 Nicotine dependence, cigarettes, uncomplicated
CPT/HCPCS: 82565; 84520; 71260; 36415; Q9967

== ENCOUNTER → 2023-09-18 | Outpatient (CLI) | payer MEDICARE, BC ==
[2023-09-18 11:02] LABS: African American GFR (CKD) >90 (>60 ml/min/1.73 sqM); Blood Urea Nitrogen 11 mg/dL (9-20); Non-African American GFR(CKD) >90 (>60 ml/min/1.73 sqM)
--- NOTE | 2023-09-18 12:22 | CT ---
CTA CHEST EXAMINATION TYPE: CT angio chest DATE OF EXAM: 09/18/2023 INDICATION: THORACIC AORTIC ANEURYSM, WITHOUT RUPTURE CT DLP: 762 mGycm, Automated exposure control for dose reduction was used. CONTRAST: Patient injected with 100ml mL of Isovue 370. COMPARISON: CT chest 3123 TECHNIQUE: CT of the chest is performed on a spiral scan at 2 mm thick sections. Study is performed with intravenous contrast timed for evaluation for thoracic aortic aneurysm. This will limit additio nal portions of the evaluation. 3-D MIP images reconstructed by the technologist are reviewed on the computer in the coronal and sagittal planes. FINDINGS: No persistent filling defects are evident to suggest an acute pulmonary embolism. No mediastinal or hilar adenopathy enlarged by CT criteria is evident. Aortic root is 3.2 cm. The ascending aorta diameter at the level of the main pulmonary artery is 3.6 cm. The main pulmonary artery diameter at the bifurcation is 2.6 cm. Mid aortic arch transverse dime nsion 3.1 cm. Aorta at the diaphragm measures 2.7 cm. Streak opacities in the periphery of the anterior lateral right upper lung field. Example image serie s 9 image 59. There appears to be a 1.5 cm underlying mass with spiculated margins in the right lower lobe superior segment. Series 9 image 91. Additional workup for neoplasm is recommended. Consider PE T/CT. Some mild thickening along the major fissure near the right base and some thickening of the pos terior left base pleural margin may be present. Mild emphysematous changes are noted. Limited CT sections were through the upper abdomen. Upper abdomen appears unremarkable. IMPRESSION: 1. No thoracic aortic aneurysm evident. 2. Spiculated 1.5 cm suspicious mass right infrahilar region. Additional workup with PET CT is recomm ended for neoplasm.
== END | disposition home or self-care (01) ==
LOC: RADCTMAIN 10:10
PROVIDERS: ATTEND Thoracic Surgery (Cardiothoracic Vascular Surgery)
DX: I71.20 Thoracic aortic aneurysm, without rupture, unspecified (principal)
CPT/HCPCS: 82565; 84520; 71275; 36415; Q9967

== ENCOUNTER → 2024-03-25 | Outpatient (CLI) | payer MEDICARE, BC ==
[2024-03-25 14:49] LABS: African American GFR (CKD) >90 (>60 ml/min/1.73 sqM); Blood Urea Nitrogen 7 mg/dL (9-20); Non-African American GFR(CKD) >90 (>60 ml/min/1.73 sqM)
--- NOTE | 2024-03-25 15:42 | CT ---
EXAMINATION TYPE: CT chest w con DATE OF EXAM: 03/25/2024 COMPARISON: 03/21/2023 CLINICAL INDICATION: Male, 74 years old with history of C34.31 MALIGNANT NEOPLASM OF LOWER LOBE, RIGH T BRO; PHH, f/u lung ca TECHNIQUE: CT scan of the chest is performed with IV Contrast, patient injected with 100 mL of Isovue 300. MIP Images are created on CT scanner and reviewed. 3D reconstructed images are created on an independent workstation and reviewed. CT DLP: [address] CTDI: mGy Automated exposure control for dose reduction was used. FINDINGS: The spiculated mass in the right lower lobe has decreased from 2.3 x 1.7 cm to 1.7 x 1.7 cm. The pleu ral-based density in the right lower lobe laterally has also decreased in the interval from 13 mm x 1 8 mm to approximately 7 x 9 mm. There are moderate emphysematous changes. There is no new lung mass or nodule. There is no airspace consolidation. There is no pleural effusion or pneumothorax. The great vessels the chest are normal and there is no mediastinal, hilar or axillary adenopathy. There is diffuse thickening of the wall of the esophagus. Limited scanning through the upper abdomen reveals a moderate steatosis of the liver. No focal osseous lesions are seen. IMPRESSION: 1. Decreasing right lower lobe lung masses as described above. 2. No new lesions seen. 3. No acute cardiopulmonary disease. 4. Persistent diffuse thickening of the esophagus wall [facility], , 03/25/2024 3:40 PM
== END | disposition home or self-care (01) ==
LOC: RADCTMAIN 13:57
PROVIDERS: ATTEND Radiology Radiation Oncology
DX: C34.31 Malignant neoplasm of lower lobe, right bronchus or lung (principal); Z12.2 Encounter for screening for malignant neoplasm of respiratory organs; R91.8 Other nonspecific abnormal finding of lung field; K22.89 Other specified disease of esophagus; F17.210 Nicotine dependence, cigarettes, uncomplicated
CPT/HCPCS: 82565; 84520; 71260; 36415; Q9967

== ENCOUNTER → 2024-05-06 | Outpatient (CLI) | payer MEDICARE, BC ==
--- NOTE | 2024-05-06 17:23 | CA ---
Transthoracic Echo Report Name: Jesus Turner Age: 74 Gender: M : 1950 Exam Date: 05/06/2024 14:03 Exam Location: [place] [facility] Ht (in): 68 Wt (lb): 152 Ordering Physician: Olu Au MD Attending/Referring Phys: Clinical Rn Liaison Latonya Allison RDCS Procedure CPT: Indications: R06.02 SOB Cardiac Hx: Technical Quality: Fair Contrast 1: Total Dose (mL): Contrast 2: Total Dose (mL): MEASUREMENTS (Male / Female) Normal Values 2D ECHO LV Diastolic Diameter PLAX 4.0 cm 4.2 - 5.9 / 3.9 - 5.3 cm LV Systolic Diameter PLAX 2.3 cm IVS Diastolic Thickness 1.2 cm 0.6 - 1.0 / 0.6 - 0.9 cm LVPW Diastolic Thickness 1.1 cm 0.6 - 1.0 / 0.6 - 0.9 cm LV Relative Wall Thickness 0.6 RV Internal Dim ED PLAX 2.3 cm LA Systolic Diameter LX 3.7 cm 3.0 - 4.0 / 2.7 - 3.8 cm LV Diastolic Volume MOD BP 30.4 cm??? 67 - 155 / 56 - 104 cm??? LV Systolic Volume MOD BP 15.0 cm??? 22 - 58 / 19 - 49 cm??? LV Ejection Fraction MOD BP 50.6 % >= 55 % LV Diastolic Volume MOD 4C 21.8 cm??? LV Systolic Volume MOD 4C 12.5 cm??? LV Ejection Fraction MOD 4C 42.6 % LV Diastolic Length 4C 6.1 cm LV Systolic Length 4C 5.4 cm LV Diastolic Volume MOD 2C 42.6 cm??? LV Systolic Volume MOD 2C 16.8 cm??? LV Ejection Fraction MOD 2C 60.6 % LV Diastolic Length 2C 6.1 cm LV Systolic Length 2C 5.0 cm M-MODE Aortic Root Diameter MM 3.5 cm LA Systolic Diameter MM 3.4 cm LA Ao Ratio MM 1.0 DOPPLER Mitral E Point Velocity 62.3 cm/s Mitral A Point Velocity 77.0 cm/s Mitral E to A Ratio 0.8 MV Deceleration Time 279.6 ms MV E' Velocity 6.1 cm/s Mitral E to MV E' Ratio 10.2 FINDINGS Left Ventricle Left ventricular ejection fraction is estimated at 55-60%. Mildly increased septal wall thickness. Normal left ventricular systolic function with no obvious regional wall motion abnormalities. Right Ventricle Normal right ventricular size and function. Right ventricular systolic pressure within normal limits. Right Atrium Normal right atrial size. Left Atrium Normal left atrial size. Mitral Valve Structurally normal mitral valve. Trace mitral regurgitation. No mitral stenosis. Aortic Valve Trileaflet aortic valve. No aortic valve stenosis or regurgitation. Tricuspid Valve Structurally normal tricuspid valve. Trace tricuspid regurgitation. No tricuspid stenosis. Pulmonic Valve Structurally normal pulmonic valve. No pulmonic stenosis. Trace pulmonic regurgitation. Pericardium No pericardial or pleural effusion. Aorta Normal size aortic root and proximal ascending aorta. CONCLUSIONS Normal LV function Previewed by: Dr. Bowen Javier MD (Electronically Signed) Final Date: 06 May 2024 17:23
== END | disposition home or self-care (01) ==
LOC: RADECHMAIN 13:43
PROVIDERS: ATTEND Family Medicine
DX: R06.02 Shortness of breath (principal)
CPT/HCPCS: 93306

== ENCOUNTER → 2024-09-19 | Outpatient (CLI) | payer MEDICARE, BC ==
[2024-09-19 13:54] LABS: African American GFR (CKD) >90 (>60 ml/min/1.73 sqM); Blood Urea Nitrogen 16 mg/dL (9-20); Non-African American GFR(CKD) >90 (>60 ml/min/1.73 sqM)
--- NOTE | 2024-09-19 14:52 | CT ---
CT thorax with contrast. HISTORY: Lung cancer. COMPARISON: 03/25/2024. TECHNIQUE: Multiple axial images obtained through the thorax following IV contrast administration. FINDINGS: There are moderate emphysematous changes with an upper lobe predominance. The ill-defined spiculated right infrahilar lung mass is stable in size measuring approximate 17 x 16 mm. The pleural-parenchyma l density in the right lower lobe laterally has increased in size from 7 x 9.5 mm to 8 x 14 mm. There are a few scattered micronodules in the left lung. There is no pleural effusion, pleural thickening or pneumothorax. The great vessels the chest are normal. There is no mediastinal, hilar or axillary adenopathy. . Limited scanning through the upper abdomen reveals no gross abnormality. No focal osseous lesions are seen. IMPRESSION: 1. Stable spiculated right infrahilar mass consistent with lung neoplasm. 2. Enlarging right lower lobe pleural-based density suspicious for increasing neoplasm [facility], , 09/19/2024 2:50 PM
== END | disposition home or self-care (01) ==
LOC: RADCTMAIN 13:10
PROVIDERS: ATTEND Radiology Radiation Oncology
DX: Z08 Encounter for follow-up examination after completed treatment for malignant neoplasm (principal); C34.31 Malignant neoplasm of lower lobe, right bronchus or lung; Z92.3 Personal history of irradiation; F17.210 Nicotine dependence, cigarettes, uncomplicated; J98.4 Other disorders of lung
CPT/HCPCS: 82565; 84520; 71260; 36415; Q9967